=== PATIENT | male | born 1945 | race Caucasian/White ===

== ENCOUNTER 2018-09-02 19:14 | Emergency (ER) | payer MEDICARE, OTHER, SELFPAY ==
[2018-09-02 19:22] VITALS: BP 146/72; PULSE 59; RESP 16; TEMP 36.5; O2SAT 99; BMI 25.0
[2018-09-02 20:05] VITALS: BP 146/72; PULSE 59; RESP 16; TEMP 36.5; O2SAT 99; BMI 25.0
[2018-09-02 20:05] LABS: Add Manual Diff / Slide Review NO; Basophils Percent Auto 0.5 % (0-2); Eosinophils Percent Auto 0.6 % (2-4); Hematocrit 46.4 % (41-53); Hemoglobin 15.8 g/dL (13.5-17.5); Lymphocytes Percent Auto 14.9 % (25-40); Mean Corpuscular HGB Conc 33.9 % (30-36); Mean Corpuscular Hemoglobin 32.1 PG (26-34); Mean Corpuscular Volume 94.6 fL (80-100); Monocytes Percent Auto 4.3 % (3-14); Neutrophils Absolute Auto 6000 /uL (3000-5900); Neutrophils Percent Auto 79.7 % (50-75); Platelet Count 177 X10^3/uL (150-400); Red Cell Distribution Width 13.5 % (11.6-14.8); White Blood Cell Count 7.6 X10^3/uL (4.5-11.0)
--- NOTE | 2018-09-02 20:06 | ED.DIZZY ---
HPI - Dizziness General Chief Complaint: Dizziness Stated Complaint: Dizzy Time Seen by Provider: 09/02/18 19:53 Source: patient, family () and EMS Mode of arrival: EMS Limitations: no limitations History of Present Illness HPI Narrative: This is a 73-year-old male who comes to the emergency department with complaint of dizziness. When asked he states when he got out of bed this morning sickness he jumped up stood on the floor he felt like the room was spinning in front of him. When he lays down we still the symptoms go away. He tried several times today and had the same symptoms each time. His did assistance to the bathroom at 1 point because he felt so off balance. Patient states that he does not headache, he is not having any vision changes. No chest pain or shortness of breath. No nausea or vomiting, no other GI or urinary symptoms. He is not having any weakness. He does not feel like he is going to pass out but does feel a little lightheaded. Him and his state he has had similar symptoms before and was diagnosed with vertigo. He does have tubes in his ears bilaterally. He states the right 1 fell out recently and these were placed there for fluid behind his ears. Him and his state that both were not placed secondary or associated with his prior vertigo episode. They do not remember if his symptoms were the same as today as his vertigo symptoms were a long time ago. Related Data Home Medications Medication Instructions Recorded Confirmed ginkgo biloba 120 mg PO QDAY #0 02/27/18 loratadine 10 mg PO QDAY #90 02/27/18 valacyclovir 500 mg PO QDAY #90 02/27/18 Previous Rx's Medication Instructions Recorded rivastigmine [Exelon] 13.3 mg TD Q DAY #90 patch 01/22/18 meclizine 25 mg PO BID-TID PRN #14 tab 09/02/18 Allergies Allergy/AdvReac Type Severity Reaction Status Date / Time quinine Allergy Intermediate HIVES Verified 09/02/18 19:22 hydrocodone Allergy Mild REACTED Verified 09/02/18 19:22 PRETTY BAD TOO IT. Review of Systems Review of Systems All systems reviewed & are unremarkable except as noted in HPI and below Constitutional Denies fatigue, Denies fever(s), Denies headache(s) and Denies weakness Eyes Denies change in vision ENT Ears, Nose, Mouth, and Throat: Denies headache(s) Cardiovascular Denies chest pain, Denies diaphoresis, Denies syncope, Denies irregular heart rhythm, Denies lightheadedness, Denies palpitations, Denies dyspnea, Denies dyspnea on exertion and Denies orthopnea Respiratory Denies cough, Denies dyspnea, Denies dyspnea on exertion and Denies wheezing Gastrointestinal Gastrointestinal: Denies abdominal pain, Denies change in bowel habits, Denies diarrhea, Denies nausea and Denies vomiting Genitourinary Denies hematuria, Denies flank pain, Denies urinary incontinence and Denies urinary urgency Musculoskeletal Denies numbness Neurologic Denies confusion, Denies syncope, Denies headache(s), Denies focal weakness, Denies numbness, Denies sensory deficit and Denies weakness Psychiatric Denies confusion Endocrine Denies fatigue and Denies palpitations Allergic/Immunologic Denies wheezing PFSH Medical History Memory problem (Acute) Surgical History History of carpal tunnel repair Status post hernia repair Social History marital status: household members: spouse Smoking Status: Never smoker alcohol intake: never Exam Narrative Exam Narrative: GEN: well nourished, well appearing male, alert and oriented x 3, patient appears to be in no acute distress. I am able to sit the patient up in the bed without increasing symptoms. HEENT: Atraumatic, pupils are equal round reactive to light, extraocular movements are intact, nares are clear, right TM shows a blue 2 within the canal but not in the tympanic membrane, there is a hole present time headache membrane consistent with recent ear tube, left canal has cerumen and I am unable to visualize the TM. Throat is clear without any exudates, erythema, tonsillar enlargement or uvular deviation, no facial droop. No dysarthria or aphasia. HEART: Regular rate and rhythm without murmur, clicks, rubs. Pulses are equal in upper and lower extremities LUNGS:Lungs clear to auscultation, no wheezes, rales, crackles, chest moves symmetrically ABD:bowel sounds normal, soft, non-tender, no guarding, rebound, rigidity, no masses noted, no hepatosplenomegaly :No CVA tenderness MSCL: Non-tender, no muscle atrophy, muscles strength 5/5 upper and lower extremities, full range of motion, normal gait NEURO:CN 2-12 intact, sensation normal, reflexes 2/4 upper and lower extremities. finger nose finger test normal, heel barlow test normal. Initial Vital Signs Initial Vital Signs: Vital Signs Temperature 97.7 F 09/02/18 19:22 Pulse Rate 59 L 09/02/18 19:22 Respiratory Rate 16 09/02/18 19:22 Blood Pressure 146/72 H 09/02/18 19:22 Pulse Oximetry 99 09/02/18 19:22 Scores NIH Stroke Scale Level of Conciousness: Alert, keenly responsive Ask month/age: Answers both questions correctly. Open/close eyes, close hand: Performs both tasks correctly Best gaze horizontal: Normal Visual pham: No visual loss Facial palsy: Normal symetrical movement Left arm drift: No drift for full 10 sec Right arm drift: No drift for full 10 sec Left leg drift: No drift for full 10 sec Right leg drift: No drift for full 10 sec Limb ataxia: Absent Sensory on face/arms/legs: Normal, no sensory loss Best language: No aphasia, normal Dysarthria: Normal Extinction or inattention: No abnormality Total NIH Stroke scale score: 0 Course Orders Ordered: ED Orders 09/02/18 19:48 EKG-12 Lead Stat 09/02/18 20:05 Troponin I Stat 09/02/18 20:06 CT head/brain wo con Stat XR chest 1V Stat Discontinued Medications Meclizine HCl (Antivert) 25 mg PO NOW ONE Stop: 09/02/18 20:06 Last Admin: 09/02/18 20:09 Dose: 25 mg Meclizine HCl (Antivert) 50 mg PO NOW ONE Stop: 09/02/18 22:45 Last Admin: 09/02/18 22:47 Dose: 50 mg Reevaluation(s) Reevaluation #1: recheck after meclizine. patient feels better but when attempted to walk felt very symptomatic. Patient and feel safe returning home. No clear signs of CVA and patient has had similar symptoms in past. Time: 22:30 Vital Signs - 8 hr 09/02/18 20:54 Pulse Rate 71 Respiratory Rate 19 Blood Pressure [Left Arm] 138/76 Pulse Oximetry 99 MDM - Dizziness Lab Data Attestation: I reviewed the patient's lab results. Result diagrams: 09/02/18 19:20 09/02/18 19:20 Lab Results 09/02/18 09/02/18 09/02/18 Range/Units 19:20 19:20 20:05 WBC 7.6 (4.5-11.0) X10^3/uL RBC 4.90 (4.5-5.9) X10^6/uL Hgb 15.8 (13.5-17.5) g/dL Hct 46.4 (41-53) % MCV 94.6 (80-100) fL MCH 32.1 (26-34) PG MCHC 33.9 (30-36) % RDW 13.5 (11.6-14.8) % Plt Count 177 (150-400) X10^3/uL Neut % (Auto) 79.7 H (50-75) % Lymph % (Auto) 14.9 L (25-40) % [place] % (Auto) 4.3 (3-14) % Eos % (Auto) 0.6 L (2-4) % Baso % (Auto) 0.5 (0-2) % Neut # (Auto) 6000 H (9343-1279) /uL Sodium 140 Cancelled (137-145) mmol/L Potassium 4.1 Cancelled (3.4-5.1) mmol/L Chloride 102 Cancelled (98-107) mmol/L Carbon Dioxide 26 Cancelled (22-32) mmol/L BUN 14 Cancelled (9-20) mg/dL Creatinine 0.70 Cancelled (0.66-1.25) mg/dL Estimated GFR > 60.0 Cancelled (>60) mL/min BUN/Creatinine Ratio 20.0 Cancelled (6-22) Glucose 160 H Cancelled (80-110) mg/dL Calcium 9.1 Cancelled (8.4-10.2) mg/dL Total Bilirubin 0.9 Cancelled (0.2-1.3) mg/dL AST 34 Cancelled (17-59) IU/L ALT 28 Cancelled (21-72) IU/L Alkaline Phosphatase 53 Cancelled (38-126) U/L Troponin I < 0.012 (0.01-0.034) ng/mL Total Protein 6.9 Cancelled (6.3-8.2) g/dL Albumin 4.1 Cancelled (3.5-5.0) g/dL Globulin 2.8 Cancelled (1.7-4.1) g/dL Albumin/Globulin Ratio 1.5 Cancelled (1.0-2.8) Specimen Hemolysis Cancelled Urine Dip Bedside Urine Glucose Negative Bedside Urine Bilirubin - Negative Bedside Urine Ketone - Negative Urine Specific [place] 1.015 Bedside Urine Occult Blood - Negative Bedside Urine pH 7.5 Bedside Urine Protein - Negative Bedside Urine Urobilinogen - Negative Bedside Urine Nitrite - Negative Bedside Urine Leukocytes - Negative Esterase Imaging Data Chest x-ray: Radiologist's impression: [address] [address] XRay Report Signed Patient: Nitesh Hawley RMR#: [id number] : 3Acct:[id number] Age/Sex: 73 / MDate of Service: 09/02/18 Loc: ED Accession Number: [id number] Procedure: XR chest 1V Ordering Provider: Ying Contreras D.O. PROCEDURE: XR CHEST 1V INDICATIONS: dizziness/vertigo symptoms TECHNIQUE: One view of the chest was acquired. COMPARISON: [facility], , XR CHEST 1 VIEW, 03/04/2018, 14:50. FINDINGS: Surgical changes and devices: Dual-lead cardiac pacer is unchanged. Lungs and pleura: No pleural effusions or pneumothorax. Lungs are clear. Mediastinum: Mediastinal contours appear normal. Heart size is normal. Bones and chest wall: No suspicious bony lesions. Overlying soft tissues appear unremarkable. There is gaseous distention of the stomach. IMPRESSION: No acute cardiopulmonary findings. Dictated by: Melina Vasquez M.D. on 09/02/2018 at 20:29 Approved by: Melina Vasquez M.D. on 09/02/2018 at 20:30 CT scan - head: Radiologist's impression: [address] [address] [address] Scan Report Signed Patient: Nitesh Hawley RMR#: [id number] : 3At:[id number] Age/Sex: 73 / MDate of Service: 09/02/18 Loc: ED Accession Number: [id number] Procedure: CT head/brain wo con Ordering Provider: Ying Contreras D.O. PROCEDURE: CT HEAD/BRAIN WO CON INDICATIONS: dizziness/vertigo symptoms. TECHNIQUE: Noncontrast 4.5 mm thick angled axial sections acquired from the foramen magnum to the vertex, with coronal and sagittal reformats. For radiation dose reduction, the following was used: automated exposure control, adjustment of mA and/or kV according to patient size. COMPARISON: None. FINDINGS: Image quality: Excellent. CSF spaces: Basal cisterns are patent. No extra-axial fluid collections. The ventricles are symmetric in size and shape. Brain: No intracranial bleeds or masses. There is marked cerebral volume loss for age, with resultant ventricular and sulcal prominence. There are extensive periventricular and deep white matter chronic small vessel ischemic changes. There is intracranial internal carotid artery atherosclerosis. 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 Skull and face: Calvarium and visualized facial bones appear intact, without suspicious lesions. Sinuses: Visualized sinuses and mastoids are clear. IMPRESSION: 1. No acute intracranial findings. 2. Extensive findings likely associated with chronic microvascular ischemic changes. 3. Partially calcified pineal gland cyst. If further characterization is warranted, MRI could be used. Dictated by: Melina Vasquez M.D. on 09/02/2018 at 20:40 Approved by: Melina Vasquez M.D. on 09/02/2018 at 20:43 ECG Data Attestation: I personally reviewed and interpreted this ECG as follows: Interpretation: atrial paced rhythm. Rate of 60, P are of 204, QRS of 93 and QTC of [address] change. Prior from February 2018 appears similar. MDM Narrative Medical decision making narrative: Patient NIH scale is 0. Patient is feeling similar to prior episode. Patient and are comfortable returning. Discharge Plan Departure Patient Disposition: Home Clinical Impression: Vertigo Discharge Date/Time: 09/02/18 22:45 Interventions: ED Discharge Assessment Last Done: 09/02/18 22:45 Instructions: DI for Vertigo Activity Restrictions/Additional Instructions: Follow up with your physician in the next 24-48 hours for recheck. Take medication as prescribed, you may take 1-2 tablets of meclizine every 6-8 hours as needed for symptoms. Return to ER for worsening symptoms, new weakness, difficulty with speech, numbness, severe headaches, vision changes or other new or concerning symptoms. Prescriptions: New meclizine 25 mg tablet 25 mg PO BID-TID PRN (Reason: dizziness) Qty: 14 RF: 0 No Action rivastigmine [Exelon] 13.3 MG/24 HR patch 24 hour 13.3 mg TD Q DAY Qty: 90 RF: 3 valacyclovir 500 MG tablet 500 mg PO QDAY Qty: 90 RF: 0 loratadine 10 MG tablet 10 mg PO QDAY Qty: 90 RF: 0 ginkgo biloba 120 MG tablet 120 mg PO QDAY Qty: 0 RF: 0
[2018-09-02 20:07] LABS: Alanine Aminotransferase 28 IU/L (21-72); Albumin 4.1 g/dL (3.5-5.0); Albumin Globulin Ratio 1.5 (1.0-2.8); Alkaline Phosphatase 53 U/L (38-126); Aspartate Aminotransferase 34 IU/L (17-59); Bilirubin Total 0.9 mg/dL (0.2-1.3); Blood Urea Nitrogen 14 mg/dL (9-20); Calcium 9.1 mg/dL (8.4-10.2); Carbon Dioxide 26 mmol/L (22-32); Chloride 102 mmol/L (98-107); Estimated Glomerular Filt Rate > 60.0 mL/min (>60); Globulin 2.8 g/dL (1.7-4.1); Glucose 160 mg/dL (80-110); HEMOLYSIS 18 (0-50); Potassium 4.1 mmol/L (3.4-5.1); Sodium 140 mmol/L (137-145); Total Protein 6.9 g/dL (6.3-8.2)
[2018-09-02] MEDS: MECLIZINE HCL 12.5 MG TABLET 25 MG PO (20:09)
--- NOTE | 2018-09-02 20:12 | ED_ITS ---
HPI - Dizziness General Chief Complaint: Dizziness Stated Complaint: Dizzy Time Seen by Provider: 09/02/18 19:53 Source: patient, family () and EMS Mode of arrival: EMS Limitations: no limitations History of Present Illness HPI Narrative: This is a 73-year-old male who comes to the emergency department with complaint of dizziness. When asked he states when he got out of bed this morning sickness he jumped up stood on the floor he felt like the room was spinning in front of him. When he lays down we still the symptoms go away. He tried several times today and had the same symptoms each time. His did assistance to the bathroom at 1 point because he felt so off balance. Patient states that he does not headache, he is not having any vision changes. No chest pain or shortness of breath. No nausea or vomiting, no other GI or urinary symptoms. He is not having any weakness. He does not feel like he is going to pass out but does feel a little lightheaded. Him and his state he has had similar symptoms before and was diagnosed with vertigo. He does have tubes in his ears bilaterally. He states the right 1 fell out recently and these were placed there for fluid behind his ears. Him and his state that both were not placed secondary or associated with his prior vertigo episode. They do not remember if his symptoms were the same as today as his vertigo symptoms were a long time ago. Related Data Home Medications Medication Instructions Recorded Confirmed ginkgo biloba 120 mg PO QDAY #0 02/27/18 loratadine 10 mg PO QDAY #90 02/27/18 valacyclovir 500 mg PO QDAY #90 02/27/18 Previous Rx's Medication Instructions Recorded rivastigmine [Exelon] 13.3 mg TD Q DAY #90 patch 01/22/18 meclizine 25 mg PO BID-TID PRN #14 tab 09/02/18 Allergies Allergy/AdvReac Type Severity Reaction Status Date / Time quinine Allergy Intermediate HIVES Verified 09/02/18 19:22 hydrocodone Allergy Mild REACTED Verified 09/02/18 19:22 PRETTY BAD TOO IT. Review of Systems Review of Systems All systems reviewed & are unremarkable except as noted in HPI and below Constitutional Denies fatigue, Denies fever(s), Denies headache(s) and Denies weakness Eyes Denies change in vision ENT Ears, Nose, Mouth, and Throat: Denies headache(s) Cardiovascular Denies chest pain, Denies diaphoresis, Denies syncope, Denies irregular heart rhythm, Denies lightheadedness, Denies palpitations, Denies dyspnea, Denies dyspnea on exertion and Denies orthopnea Respiratory Denies cough, Denies dyspnea, Denies dyspnea on exertion and Denies wheezing Gastrointestinal Gastrointestinal: Denies abdominal pain, Denies change in bowel habits, Denies diarrhea, Denies nausea and Denies vomiting Genitourinary Denies hematuria, Denies flank pain, Denies urinary incontinence and Denies urinary urgency Musculoskeletal Denies numbness Neurologic Denies confusion, Denies syncope, Denies headache(s), Denies focal weakness, Denies numbness, Denies sensory deficit and Denies weakness Psychiatric Denies confusion Endocrine Denies fatigue and Denies palpitations Allergic/Immunologic Denies wheezing PFSH Medical History Memory problem (Acute) Surgical History History of carpal tunnel repair Status post hernia repair Social History marital status: household members: spouse Smoking Status: Never smoker alcohol intake: never Exam Narrative Exam Narrative: GEN: well nourished, well appearing male, alert and oriented x 3 , patient appears to be in no acute distress. I am able to sit the patient up in the bed without increasing symptoms. HEENT: Atraumatic, pupils are equal round reactive to light, extraocular movements are intact, nares are clear, right TM shows a blue 2 within the canal but not in the tympanic membrane, there is a hole present time headache membrane consistent with recent ear tube, left canal has cerumen and I am unable to visualize the TM. Throat is clear without any exudates, erythema, tonsillar enlargement or uvular deviation, no facial droop. No dysarthria or aphasia. HEART: Regular rate and rhythm without murmur, clicks, rubs. Pulses are equal in upper and lower extremities LUNGS:Lungs clear to auscultation, no wheezes, rales, crackles, chest moves symmetrically ABD:bowel sounds normal, soft, non-tender, no guarding, rebound, rigidity, no masses noted, no hepatosplenomegaly :No CVA tenderness MSCL: Non-tender, no muscle atrophy, muscles strength 5/5 upper and lower extremities, full range of motion, normal gait NEURO:CN 2-12 intact, sensation normal, reflexes 2/4 upper and lower extremities. finger nose finger test normal, heel barlow test normal. Initial Vital Signs Initial Vital Signs: Vital Signs Temperature 97.7 F 09/02/18 19:22 Pulse Rate 59 L 09/02/18 19:22 Respiratory Rate 16 09/02/18 19:22 Blood Pressure 146/72 H 09/02/18 19:22 Pulse Oximetry 99 09/02/18 19:22 Scores NIH Stroke Scale Level of Conciousness: Alert, keenly responsive Ask month/age: Answers both questions correctly. Open/close eyes, close hand: Performs both tasks correctly Best gaze horizontal: Normal Visual pham: No visual loss Facial palsy: Normal symetrical movement Left arm drift: No drift for full 10 sec Right arm drift: No drift for full 10 sec Left leg drift: No drift for full 10 sec Right leg drift: No drift for full 10 sec Limb ataxia: Absent Sensory on face/arms/legs: Normal, no sensory loss Best language: No aphasia, normal Dysarthria: Normal Extinction or inattention: No abnormality Total NIH Stroke scale score: 0 Course Orders Ordered: ED Orders 09/02/18 19:48 EKG-12 Lead Stat 09/02/18 20:05 Troponin I Stat 09/02/18 20:06 CT head/brain wo con Stat XR chest 1V Stat Discontinued Medications Meclizine HCl (Antivert) 25 mg PO NOW ONE Stop: 09/02/18 20:06 Last Admin: 09/02/18 20:09 Dose: 25 mg Meclizine HCl (Antivert) 50 mg PO NOW ONE Stop: 09/02/18 22:45 Last Admin: 09/02/18 22:47 Dose: 50 mg Reevaluation(s) Reevaluation #1: recheck after meclizine. patient feels better but when attempted to walk felt very symptomatic. Patient and feel safe returning home. No clear signs of CVA and patient has had similar symptoms in past. Time: 22:30 Vital Signs - 8 hr 09/02/18 20:54 Pulse Rate 71 Respiratory Rate 19 Blood Pressure [Left Arm] 138/76 Pulse Oximetry 99 MDM - Dizziness Lab Data Attestation: I reviewed the patient's lab results. Result diagrams: 09/02/18 19:20 09/02/18 19:20 Lab Results 09/02/18 09/02/18 09/02/18 Range/Units 19:20 19:20 20:05 WBC 7.6 (4.5-11.0) X10^3/uL RBC 4.90 (4.5-5.9) X10^6/uL Hgb 15.8 (13.5-17.5) g/dL Hct 46.4 (41-53) % MCV 94.6 (80-100) fL MCH 32.1 (26-34) PG MCHC 33.9 (30-36) % RDW 13.5 (11.6-14.8) % Plt Count 177 (150-400) X10^3/uL Neut % (Auto) 79.7 H (50-75) % Lymph % (Auto) 14.9 L (25-40) % [place] % (Auto) 4.3 (3-14) % Eos % (Auto) 0.6 L (2-4) % Baso % (Auto) 0.5 (0-2) % Neut # (Auto) 6000 H (9678-0875) /uL Sodium 140 Cancelled (137-145) mmol/L Potassium 4.1 Cancelled (3.4-5.1) mmol/L Chloride 102 Cancelled (98-107) mmol/L Carbon Dioxide 26 Cancelled (22-32) mmol/L BUN 14 Cancelled (9-20) mg/dL Creatinine 0.70 Cancelled (0.66-1.25) mg/dL Estimated GFR > 60.0 Cancelled (>60) mL/min BUN/Creatinine Ratio 20.0 Cancelled (6-22) Glucose 160 H Cancelled (80-110) mg/dL Calcium 9.1 Cancelled (8.4-10.2) mg/dL Total Bilirubin 0.9 Cancelled (0.2-1.3) mg/dL AST 34 Cancelled (17-59) IU/L ALT 28 Cancelled (21-72) IU/L Alkaline Phosphatase 53 Cancelled (38-126) U/L Troponin I < 0.012 (0.01-0.034) ng/mL Total Protein 6.9 Cancelled (6.3-8.2) g/dL Albumin 4.1 Cancelled (3.5-5.0) g/dL Globulin 2.8 Cancelled (1.7-4.1) g/dL Albumin/Globulin Ratio 1.5 Cancelled (1.0-2.8) Specimen Hemolysis Cancelled Urine Dip Bedside Urine Glucose Negative Bedside Urine Bilirubin - Negative Bedside Urine Ketone - Negative Urine Specific [place] 1.015 Bedside Urine Occult Blood - Negative Bedside Urine pH 7.5 Bedside Urine Protein - Negative Bedside Urine Urobilinogen - Negative Bedside Urine Nitrite - Negative Bedside Urine Leukocytes - Negative Esterase Imaging Data Chest x-ray: Radiologist's impression: [address] [address] XRay Report Signed Patient: Nitesh Hawley RMR#: [id number] : 3Acct:[id number] Age/Sex: 73 / MDate of Service: 09/02/18 Loc: ED Accession Number: [id number] Procedure: XR chest 1V Ordering Provider: Ying Contreras D.O. PROCEDURE: XR CHEST 1V INDICATIONS: dizziness/vertigo symptoms TECHNIQUE: One view of the chest was acquired. COMPARISON: [facility], , XR CHEST 1 VIEW, 03/04/2018, 14:50. FINDINGS: Surgical changes and devices: Dual-lead cardiac pacer is unchanged. Lungs and pleura: No pleural effusions or pneumothorax. Lungs are clear. Mediastinum: Mediastinal contours appear normal. Heart size is normal. Bones and chest wall: No suspicious bony lesions. Overlying soft tissues appear unremarkable. There is gaseous distention of the stomach. IMPRESSION: No acute cardiopulmonary findings. Dictated by: Melina Vasquez M.D. on 09/02/2018 at 20:29 Approved by: Melina Vasquez M.D. on 09/02/2018 at 20:30 CT scan - head: Radiologist's impression: [address] [address] [address] Scan Report Signed Patient: Nitesh Hawley RMR#: [id number] : 3At:[id number] Age/Sex: 73 / MDate of Service: 09/02/18 Loc: ED Accession Number: [id number] Procedure: CT head/brain wo con Ordering Provider: Ying Contreras D.O. PROCEDURE: CT HEAD/BRAIN WO CON INDICATIONS: dizziness/vertigo symptoms. TECHNIQUE: Noncontrast 4.5 mm thick angled axial sections acquired from the foramen magnum to the vertex, with coronal and sagittal reformats. For radiation dose reduction, the following was used: automated exposure control, adjustment of mA and/or kV according to patient size. COMPARISON: None. FINDINGS: Image quality: Excellent. CSF spaces: Basal cisterns are patent. No extra-axial fluid collections. The ventricles are symmetric in size and shape. Brain: No intracranial bleeds or masses. There is marked cerebral volume loss for age, with resultant ventricular and sulcal prominence. There are extensive periventricular and deep white matter chronic small vessel ischemic changes. There is intracranial internal carotid artery atherosclerosis. 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 Skull and face: Calvarium and visualized facial bones appear intact, without suspicious lesions. Sinuses: Visualized sinuses and mastoids are clear. IMPRESSION: 1. No acute intracranial findings. 2. Extensive findings likely associated with chronic microvascular ischemic changes. 3. Partially calcified pineal gland cyst. If further characterization is warranted, MRI could be used. Dictated by: Melina Vasquez M.D. on 09/02/2018 at 20:40 Approved by: Melina Vasquez M.D. on 09/02/2018 at 20:43 ECG Data Attestation: I personally reviewed and interpreted this ECG as follows: Interpretation: atrial paced rhythm. Rate of 60, P are of 204, QRS of 93 and QTC of [address] change. Prior from February 2018 appears similar. MDM Narrative Medical decision making narrative: Patient NIH scale is 0. Patient is feeling similar to prior episode. Patient and are comfortable returning. Discharge Plan Departure Patient Disposition: Home Clinical Impression: Vertigo Discharge Date/Time: 09/02/18 22:45 Interventions: ED Discharge Assessment Last Done: 09/02/18 22:45 Instructions: DI for Vertigo Activity Restrictions/Additional Instructions: Follow up with your physician in the next 24-48 hours for recheck. Take medication as prescribed, you may take 1-2 tablets of meclizine every 6-8 hours as needed for symptoms. Return to ER for worsening symptoms, new weakness, difficulty with speech, numbness, severe headaches, vision changes or other new or concerning symptoms. Prescriptions: New meclizine 25 mg tablet 25 mg PO BID-TID PRN (Reason: dizziness) Qty: 14 RF: 0 No Action rivastigmine [Exelon] 13.3 MG/24 HR patch 24 hour 13.3 mg TD Q DAY Qty: 90 RF: 3 valacyclovir 500 MG tablet 500 mg PO QDAY Qty: 90 RF: 0 loratadine 10 MG tablet 10 mg PO QDAY Qty: 90 RF: 0 ginkgo biloba 120 MG tablet 120 mg PO QDAY Qty: 0 RF: 0
[2018-09-02 20:31] LABS: Troponin I < 0.012 ng/mL (0.01-0.034)
[2018-09-02 20:54] VITALS: BP 138/76; PULSE 71; RESP 19; O2SAT 99
[2018-09-02] MEDS: MECLIZINE HCL 12.5 MG TABLET 50 MG PO (22:47)
== END 2018-09-02 22:45 | disposition home or self-care (01) ==
PROVIDERS: Emergency Provider Emergency Medicine; Family Provider Specialist; PCP Family Medicine
DX: R42 Dizziness and giddiness (principal)
CPT/HCPCS: 70450; 71045; 80053; 81003; 84484; 85025; 93005; 93010; 99282; 99285

== ENCOUNTER 2020-02-14 14:30 | Outpatient (RCR) | payer MEDICARE, OTHER, SELFPAY ==
--- NOTE | 2020-02-09 18:02 | ST.OPIE ---
Visit Care Team Role Provider Type Jared Wu MD Primary Care Provider Physician Specialty: Internal Medicine Address: [address] [place] [address], [address], [place], [address] Email: [email or web address] Regan Mckeon MD Attending Provider Non-Staff Referring Provider Specialty: Psychiatry Address: [address] [place] [address], [id number] Email: Speech-Language Pathology Initial Evaluation INTERVENTIONAL TECHNOLOGIST Cognitive/Memory Evaluation Start: 02/07/20 14:25 Freq: Status: Active Protocol: Document 02/07/20 14:25 LNK (Rec: 02/07/20 15:51 LNK [id number]) Evaluation of Cognition Session Time Visit Start Time 14:30 Visit Stop Time 15:25 Total Visit Minutes 55 Visit Information Visit Number 1 Plan of Care Dates 02/07/20-05/09/20 Next Note Type Next Note Type Treatment Note Referral Referring Physician Reason for Referral Dementia Evaluation Assessment Type Cognitive Past Medical History Patient History Mr. Hawley is a 74-year-old man who was diagnosed with Alzheimer's in April. He is currently on memantine is seems to be tolerating it well . His opinion is that symptoms are slowly progressing. His thinks that things are moving a little bit faster than she expects. His has previously been referred to [facility] but has not called them. Hearing Hearing Level Hearing Aids Auditory History Pt is FALSE PASS. Has bilateral hearing aids, but still has difficulty hearing. Vision Vision Status Impaired Comments wears glasses Occupational Status Occupation Status Retired Previous Therapy Previous Speech-Language Therapy No Oral Motor Examination Oral Motor Exam Completed No: Informal observation indicated OM skills WFL Subjective Subjective Pt is a pleasant man, here with his . Very FALSE PASS - Informal Assessment Receptive Language Normal No: Very FALSE PASS. Pt says he doesn't understand people Cognition Normal No Formal Assessment Standardized Test Cognitive Linguistic Quick Test-Plus (CQLT+) Administration Complete Results The results of the CQLT+ indicate that Nitesh presents with moderate to severe dementia, complicated by poor hearing and possibly inadequate hearing aids. For the assessment, this INTERVENTIONAL TECHNOLOGIST spoke loudly, often checking with Nitesh as to if he could hear and understand me. He always indicated he could. The CLQT is comprised of 11 subtests whose scores are consolidated into 5 domains of cognition: Attention, Memory, Executive Function, Language and Visuospatial Skills. Nitesh scored in a moderate cognitive impaired range for Memory, Language, Visuospatial Skills and Clock Drawing. He scored in the severe cognitively impaired range for Attention and Executive Functions. Nitesh had significant difficulty with following directions, staying on task, and not completing a task. He was unable to retell a story or answer questions about the story. His generative naming ( listing animals/words that start with 'm') was significantly limited with perseveration. Nitesh was unable to complete simple and more complex mazes and create a 4 line design given 4 dots within a box. At the end of the session, he asked me Well, after all of that, can you get me better hearing aids? His noted that she wanted me to help Nitesh understand what people are saying on the TV. - Cognition Orientation Skill Level Moderately Impaired Attention Skill Level Severely Impaired Problem Solving/Reasoning/Judgment Skill Level Severely Impaired Divergent Naming Skill Level Severely Impaired Sequencing Skill Level Severely Impaired Clock Drawing Skill Level Moderately Impaired - Memory Short Term Memory Skill Level Severely Impaired Immediate Recall Skill Level Severely Impaired Word Recall Skill Level Severely Impaired Story Recall Skill Level Severely Impaired Long-Term Memory Skill Level Mildly Impaired - Findings Cognitive/Memory Impressions Due to the severity of dementia Nitesh presented with cognitive therapy is not recommended beyond 1-2 visits for environmental strategies and communication strategies. Written information re; the above will be provided. Recommendations Recommendations ST follow up 1or 2x Treatment Goals Short Term Goals 1) Recommend that Nitesh be referred for an audiological appointment to assess hearing acuity and candidacy for new hearing aids. 2) Follow up speech therapy to provide strategies for communicating with a person with hearing loss and environmental adjustments that can be used to help decrease confusion. Referrals Suggested ENT,Primary Care Physician
--- NOTE | 2020-02-09 18:03 | ST.OPPOC ---
Physical, Occupational & Speech Therapy At [facility] Visit Care Team Role Provider Type Jared Wu MD Primary Care Provider Physician Address: [address] [place] [address], [address], [address] Regan Mckeon MD Attending Provider Non-Staff Referring Provider Address: [address] [place] [address], [id number] Speech Pathology Plan of Care Plan of Care Dates 02/07/20-05/09/20 Short Term Goals 1) Recommend that Nitesh be referred for an audiological appointment to assess hearing acuity and candidacy for new hearing aids. 2) Follow up speech therapy to provide strategies for communicating with a person with hearing loss and environmental adjustments that can be used to help decrease confusion. Electronically Signed by: BRISA Bowen 02/09/20 [id number] Please Sign and Return: I have reviewed this Plan of Care and certify that the skilled therapy services above are required to meet the patient?s needs. Physician Signature Date Printed Name and Credentials Clinical Instructor Signature Printed Name and Credentials
--- NOTE | 2020-02-14 15:48 | ST.OPTN ---
Visit Care Team Role Provider Type Jared Wu MD Primary Care Provider Physician Address: [address] [place] [address], [address], [place], [address] Regan Mckeon MD Attending Provider Non-Staff Referring Provider Address: [address] [place] [address], [id number] FOUNDRY ENGINEER Treatment Note FOUNDRY ENGINEER Treatment Note Start: 02/07/20 14:25 Freq: Status: Active Protocol: Document 02/14/20 15:24 LNK (Rec: 02/14/20 15:39 LNK [id number]) Speech Pathology Treatment Note Session Time Visit Start Time 14:30 Visit Stop Time 15:15 Total Visit Minutes 45 Visit Information Visit Number 2 Plan of Care Dates 02/07/20-05/09/20 Setting Treatment Setting Outpatient Care Visit Type Note Type Treatment Note Next Note Type Next Note Type Discharge Summary General Information General Information Mr. Hawley is a 74-year-old man who was diagnosed with Alzheimer's in April. He is currently on memantine is seems to be tolerating it well . His opinion is that symptoms are slowly progressing. His thinks that things are moving a little bit faster than she expects. Mr. Hawley was initially wanting to be able to understand what people are saying. At his initial assessment session, the results of the CQLT+ indicate that Mr. Hawley presents with moderate to severe dementia, complicated by poor hearing and possibly inadequate hearing aids. Subjective Identification Type Name,Picture Others Present Family Observations/Patient Presentation Pleasantly confused Chief Complaint(s) Cognitive,Other Additional Areas of Concern Hearing Rehab Expectation/Goals: Patient Goals Understand what people are saying Rehab Expectation/Goals: Parent/Guardian Understand what people are /Construction Field Engineer Goals saying Patient Knowledge/Awareness of FOUNDRY ENGINEER Role Fair in Treatment Parent/Caretake Knowledge/Awareness of Good FOUNDRY ENGINEER Role in Treatment Objective Treatment Activities The results of the CQLT were reviewed with the pt and his . The results indicated moderate-severe dementia. At this point, strategies for home/ environmental organization to reduce confusion and increasing Nitesh's awareness of daily activities were described. A list of environmental changes to aid the pt with dementia was provided. Discussed the possibility of looking into getting new hearing aids. In November, Mr. Wogan's hearing was assessed by Paul Vance MD, ENT. At that time Dr. Vance had mentioned cochlear implant possibility with and Mrs Hawley. This FOUNDRY ENGINEER is uncertain as to if Mr Hawley would be a good candidate for cochlear implant given his level of dementia and/or because Mr. Hawley has a pacemaker. Strategies for communicating with someone who is hard of hearing was provided to and Mrs Hawley. The pt is not a candidate for continued therapy Assessment Patient Response to Treatment Good Rehab Potential Poor Impairments Identified Cognitive-Linguistic Skills, Dementia Additional Impairments Identified [facility] Plan Amount of Therapy Recommended No Further Therapy Frequency of Treatment No Further Therapy Provided Patient/Caregiver Instruction Questions/Concerns Therapy Recommendations Discharge from Speech Therapy
--- NOTE | 2020-02-14 15:51 | ST.OPDS ---
Visit Care Team Role Provider Type Jared Wu MD Primary Care Provider Physician Address: [address] [place] [address], [address], [place], [address] Regan Mckeon MD Attending Provider Non-Staff Referring Provider Address: [address] [place] [address], [address] PAN DUMPER Treatment Note PAN DUMPER Treatment Note Start: 02/07/20 14:25 Freq: Status: Active Protocol: Document 02/14/20 15:49 LNK (Rec: 02/14/20 15:50 LNK [id number]) Speech Pathology Treatment Note Visit Type Note Type Discharge Summary General Information General Information Mr. Hawley is a 74-year-old man who was diagnosed with Alzheimer's in April. He is currently on memantine is seems to be tolerating it well . His opinion is that symptoms are slowly progressing. His thinks that things are moving a little bit faster than she expects. Mr. Hawley was initially wanting to be able to understand what people are saying. At his initial assessment session, the results of the CQLT+ indicate that Mr. Hawley presents with moderate to severe dementia, complicated by poor hearing and possibly inadequate hearing aids. Subjective Rehab Expectation/Goals: Patient Goals Understand what people are saying Rehab Expectation/Goals: Parent/Guardian Understand what people are /Orchard Pruner Goals saying Assessment Rehab Potential Poor Impairments Identified Cognitive-Linguistic Skills, Dementia Additional Impairments Identified [facility] Progress Towards Goals Appropriate for Discharge Plan Amount of Therapy Recommended No Further Therapy Frequency of Treatment No Further Therapy Therapy Recommendations Discharge from Speech Therapy
== END 2020-02-16 08:01 ==
LOC: SP 14:30
PROVIDERS: PCP Student in an Organized Health Care Education/Training Program; Referring Provider Psychiatry & Neurology Neurology; Visit Provider Psychiatry & Neurology Neurology
DX: G30.9 Alzheimer's disease, unspecified (principal); F02.80 Dementia in other diseases classified elsewhere, unspecified severity, without behavioral disturbance, psychotic disturbance, mood disturbance, and anxiety; F01.50 Vascular dementia, unspecified severity, without behavioral disturbance, psychotic disturbance, mood disturbance, and anxiety
CPT/HCPCS: 96125; 97129; 97130

== ENCOUNTER → 2021-01-30 16:39 | Outpatient (CLI) | payer MEDICARE, OTHER, SELFPAY ==
[2021-01-30 19:36] LABS: BUN Creatinine Ratio 15.5 (6-22); Blood Urea Nitrogen 16 mg/dL (9-20); Calcium 9.1 mg/dL (8.4-10.2); Carbon Dioxide 30 mmol/L (22-32); Chloride 106 mmol/L (98-107); Estimated Glomerular Filt Rate > 60.0 mL/min (>60); Glucose 80 mg/dL (80-110); HEMOLYSIS < 15 (0-50); Potassium 4.7 mmol/L (3.4-5.1); Sodium 138 mmol/L (137-145)
== END ==
PROVIDERS: PCP Student in an Organized Health Care Education/Training Program; Referring Provider Student in an Organized Health Care Education/Training Program; Visit Provider Student in an Organized Health Care Education/Training Program
DX: I10 Essential (primary) hypertension (principal)
CPT/HCPCS: 36415; 80048

== ENCOUNTER 2021-08-15 13:15 | Emergency (ER) | payer MEDICARE, OTHER, SELFPAY ==
[2021-08-15 13:22] VITALS: BP 142/75; PULSE 62; RESP 14; TEMP 36.4; O2SAT 98; BMI 28.0
--- NOTE | 2021-08-15 13:29 | DI.RAD.S_ITS ---
PROCEDURE: XR CHEST 1V INDICATIONS: Possible stroke TECHNIQUE: One view of the chest was acquired. COMPARISON: None. FINDINGS: Surgical changes and devices: Left chest wall cardiac pacing device. Lungs and pleura: Lungs are clear. No pleural effusions or pneumothorax. Mediastinum: Mediastinal contours appear normal. Heart size is normal. Bones and chest wall: No suspicious bony lesions. Overlying soft tissues appear unremarkable. IMPRESSION: No acute cardiopulmonary process demonstrated radiographically. Dictated by: Giovanny Khalil M.D. on 08/15/2021 at 13:57 Approved by: Giovanny Khalil M.D. on 08/15/2021 at 13:58
--- NOTE | 2021-08-15 13:29 | DI.CT.S_ITS ---
PROCEDURE: CT STROKE INDICATIONS: trouble speaking 2 days ago TECHNIQUE: Noncontrast 4.5 mm thick angled axial sections acquired from the foramen magnum to the vertex, with coronal reformats. For radiation dose reduction, the following was used: automated exposure control, adjustment of mA and/or kV according to patient size. COMPARISON: 09/02/2018 FINDINGS: Image quality: Excellent. CSF spaces: Basal cisterns are patent. No extra-axial fluid collections. Ventricles are normal in size and shape. Brain: Advanced global cerebral volume loss and chronic microvascular ischemic changes. No midline shift. No intracranial masses or hemorrhage. Hurt-white matter interface is normal. Skull and face: Calvarium and visualized facial bones are intact, without suspicious lesions. Sinuses: Visualized sinuses and mastoids are clear. IMPRESSION: No acute intracranial abnormality. Global cerebral volume loss and chronic microvascular ischemic changes. Findings were discussed with Dr. Luther at time of dictation. This study fulfills neurological imaging criteria for inclusion or exclusion of acute stroke therapies based on available published neurological imaging guidelines. Dictated by: Giovanny Khalil M.D. on 08/15/2021 at 13:54 Approved by: Giovanny Khalil M.D. on 08/15/2021 at 13:56
[2021-08-15 13:37] VITALS: PULSE 60; O2SAT 99
--- NOTE | 2021-08-15 13:41 | PC.NURSE ---
reports episode of word searching 2-3 days ago, also states left hand has been stiff on and off x days. Currently pt is a/o x 2 (baseline for pt as he has dementia) clear speech. Moving all extremities equally well. denies numbness/tingling. No symptoms currently. Pt has pacemaker and is on thinners.
[2021-08-15 13:43] LABS: Add Manual Diff / Slide Review NO; Basophils Absolute Auto 100 /uL (0-100); Basophils Percent Auto 1.2 % (0-2); Eosinophils Absolute Auto 100 /uL (0-450); Eosinophils Percent Auto 1.9 % (2-4); Hematocrit 45.9 % (41-53); Hemoglobin 14.9 g/dL (13.5-17.5); Lymphocytes Absolute Auto 2400 /uL (1100-4500); Lymphocytes Percent Auto 33.4 % (25-40); Mean Corpuscular HGB Conc 32.4 % (30-36); Mean Corpuscular Hemoglobin 30.6 PG (26-34); Mean Corpuscular Volume 94.6 fL (80-100); Monocytes Absolute Auto 600 /uL (0-900); Neutrophils Absolute Auto 3800 /uL (1500-7000); Neutrophils Percent Auto 54.5 % (50-75); Platelet Count 223 X10^3/uL (150-400); Red Blood Cell Count 4.86 X10^6/uL (4.5-5.9); Red Cell Distribution Width 13.8 % (11.6-14.8); White Blood Cell Count 7.1 X10^3/uL (4.5-11.0)
[2021-08-15 13:50] VITALS: BP 146/67; PULSE 60; O2SAT 100
[2021-08-15 13:51] LABS: INR 1.4 (0.9-1.3); Prothrombin Time 15.6 SECONDS (10.1-12.7)
[2021-08-15 13:54] LABS: PTT Partial Thromboplastin Tim 40 SECONDS (26.4-36.2)
[2021-08-15 14:00] VITALS: BP 136/70; PULSE 60; O2SAT 98
[2021-08-15 14:00] LABS: Alanine Aminotransferase 31 IU/L (<50); Albumin 4.5 g/dL (3.5-5.0); Albumin Globulin Ratio 1.4 (1.0-2.8); Alkaline Phosphatase 71 U/L (38-126); Aspartate Aminotransferase 37 IU/L (17-59); BUN Creatinine Ratio 20.7 (6-22); Blood Urea Nitrogen 18 mg/dL (9-20); Calcium 9.4 mg/dL (8.4-10.2); Carbon Dioxide 27 mmol/L (22-32); Chloride 108 mmol/L (98-107); Creatine Kinase 81 U/L (55-170); Estimated Glomerular Filt Rate > 60.0 mL/min (>60); Globulin 3.3 g/dL (1.7-4.1); Glucose 94 mg/dL (80-110); HEMOLYSIS 19 (0-50); Magnesium 2.3 mg/dL (1.6-2.3); Potassium 4.5 mmol/L (3.4-5.1); Sodium 141 mmol/L (137-145); Total Protein 7.8 g/dL (6.3-8.2)
[2021-08-15 14:11] LABS: Troponin I < 0.012 ng/mL (0.01-0.034)
--- NOTE | 2021-08-15 14:27 | ED_ITS ---
HPI - Neuro Symptoms/Deficit General Chief Complaint: Neuro Symptoms/Deficit Stated Complaint: left hand stiffness, trouble talking few days ago Time Seen by Provider: 08/15/21 13:35 Source: patient and family Mode of arrival: Ambulatory History of Present Illness HPI Narrative: Patient is a 75-year-old male. Has a history of Alzheimer's disease. Is here with his . Here for evaluation of episodes that have occurred over the past couple days. Patient's states that yesterday the patient had an episode where his left hand seemed to cramp. states that it lasted seconds. Patient does not remember the event. When she asked him if this has happened in the past he told her that it happens occasionally. Patient's also stated that a couple days ago he had an episode where he was telling her story. She stated that he seemed to have a hard time thinking of words to say in order to finish a sentence. She stated that he was not slurring his words. Was only 1 sentence that he was having problems communicating. Patient also does not remember that event. Currently the patient has no symptoms. He is at his baseline mental status per his . On Anticoagulants: Yes (xarelto) Related Data Home Medications Medication Instructions Recorded Confirmed melatonin 3 mg capsule 3 mg PO BEDTIME PRN 10/27/19 01/30/21 memantine 10 mg tablet (Namenda) 10 mg PO BID 10/27/19 01/30/21 metoprolol tartrate 25 mg tablet 12.5 mg PO BID 06/26/20 01/30/21 Previous Rx's Medication Instructions Recorded valacyclovir 500 mg tablet 500 mg PO DAILY #90 tab 02/19/21 Allergies Allergy/AdvReac Type Severity Reaction Status Date / Time quinine Allergy Intermediate HIVES Verified 08/15/21 13:32 hydrocodone Allergy Mild REACTED Verified 08/15/21 13:32 PRETTY BAD TOO IT. donepezil Allergy Unknown unknown Verified 08/15/21 13:32 galantamine Allergy Unknown unknown Verified 08/15/21 13:32 rivastigmine Allergy Unknown Redness of Verified 08/15/21 13:32 Skin Review of Systems Review of Systems Narrative: Provided by and patient Constitutional Constitutional: Denies headache(s) Eyes Eyes: Denies change in vision ENT Ears, Nose, Mouth, and Throat: Denies headache(s) Cardiovascular Cardiovascular: Denies chest pain and Denies dyspnea Respiratory Respiratory: Denies dyspnea Gastrointestinal Gastrointestinal: Denies abdominal pain Musculoskeletal Musculoskeletal: Reports as per HPI Integumentary/Breasts Skin/Breast: Reports system reviewed and no additional complaints, except as documented Neurologic Neurologic: Reports as per HPI and Denies headache(s) Psychiatric Psychiatric: Reports system reviewed and no additional complaints, except as documented Hematologic/Lymphatic On Anticoagulants: Yes (xarelto) Allergic/Immunologic Allergic/Immunologic: Reports system reviewed and no additional complaints, except as documented Patient History Medical History Chicken pox Chronic back pain Dementia Fractures Hearing loss Measles Memory problem Vision disorder Surgical History (Updated 08/30/19 @ 14:30 by Jelena Tay) Anesthesia History of carpal tunnel repair History of eye surgery (~04/26/14) History of hemorrhoidectomy History of rotator cuff surgery History of thumb surgery Pacemaker (~03/04/18) Status post hernia repair (~08/01/08) Status post LASIK surgery of both eyes Family History (Updated 08/30/19 @ 14:27 by Jelena Tay) Father History of heart disease Mother Diabetes mellitus Brother History of heart disease Social History marital status: household members: spouse Smoking Status: Former smoker alcohol intake: never Smoking Status: Former smoker Exam Initial Vital Signs Initial Vital Signs: Vital Signs Temperature 97.5 F L 08/15/21 13:22 Pulse Rate 62 08/15/21 13:22 Respiratory Rate 14 08/15/21 13:22 Blood Pressure 142/75 H 08/15/21 13:22 Pulse Oximetry 98 08/15/21 13:22 Const General: cooperative and healthy appearing HENNH Head: normal to inspection Resp Effort & Inspection: normal respiratory effort Auscultation: clear to auscultation bilaterally Cardio Rate: regular rate Rhythm: regular rhythm GI Inspection: normal to inspection Palpation: soft and No tender Skin Lesions: no lesions Rashes: no rashes Neuro General: patient alert, patient awake and moves all extremities Speech: speech normal Extrem General: normal to inspection and capillary refill normal Psych Appearance: grossly normal and well kempt Course Orders Ordered: ED Orders 08/15/21 13:29 CT Stroke Stat XR chest 1V Stat EKG-12 Lead Stat 08/15/21 13:30 Complete Blood Count AUTO DIFF Stat Comprehensive Metabolic Panel Stat Magnesium Stat Partial Thromboplastin Time Stat Prothrombin Time INR Stat Troponin & CK Cardiac Panel Stat Vital Signs Vital signs: Vital Signs - 8 hr 08/15/21 13:22 08/15/21 13:37 08/15/21 13:50 Temperature 97.5 F L Pulse Rate 62 60 60 Respiratory Rate 14 Blood Pressure 142/75 H 146/67 H Pulse Oximetry 98 99 100 08/15/21 14:00 08/15/21 14:30 Temperature Pulse Rate 60 60 Respiratory Rate Blood Pressure 136/70 138/66 Pulse Oximetry 98 99 MDM - Neuro Symptoms/Deficit Lab Data Attestation: I reviewed the patient's lab results. Result diagrams: 08/15/21 13:30 08/15/21 13:30 Labs: Lab Results 08/15/21 08/15/21 08/15/21 Range/Units 13:30 13:30 13:30 WBC 7.1 (4.5-11.0) X10^3/uL RBC 4.86 (4.5-5.9) X10^6/uL Hgb 14.9 (13.5-17.5) g/dL Hct 45.9 (41-53) % MCV 94.6 (80-100) fL MCH 30.6 (26-34) PG MCHC 32.4 (30-36) % RDW 13.8 (11.6-14.8) % Plt Count 223 (150-400) X10^3/uL Neut % (Auto) 54.5 (50-75) % Lymph % (Auto) 33.4 (25-40) % [place] % (Auto) 9.0 (3-14) % Eos % (Auto) 1.9 L (2-4) % Baso % (Auto) 1.2 (0-2) % Neut # (Auto) 3800 (5797-3494) /uL Lymph # (Auto) 2400 (8563-3299) /uL [place] # (Auto) 600 (0-900) /uL Eos # (Auto) 100 (0-450) /uL Baso # (Auto) 100 (0-100) /uL PT 15.6 H (10.1-12.7) SECONDS INR 1.4 H (0.9-1.3) APTT 40 H (26.4-36.2) SECONDS Sodium 141 (137-145) mmol/L Potassium 4.5 (3.4-5.1) mmol/L Chloride 108 H (98-107) mmol/L Carbon Dioxide 27 (22-32) mmol/L BUN 18 (9-20) mg/dL Creatinine 0.87 (0.66-1.25) mg/dL Estimated GFR > 60.0 (>60) mL/min BUN/Creatinine Ratio 20.7 (6-22) Glucose 94 (80-110) mg/dL Calcium 9.4 (8.4-10.2) mg/dL Magnesium (1.6-2.3) mg/dL Total Bilirubin 1.0 (0.2-1.3) mg/dL AST 37 (17-59) IU/L ALT 31 (<50) IU/L Alkaline Phosphatase 71 (38-126) U/L Total Creatine Kinase 81 (55-170) U/L CK-MB (CK-2) TNP CK-MB (CK-2) Rel Index TNP Troponin I < 0.012 (0.01-0.034) ng/mL Total Protein 7.8 (6.3-8.2) g/dL Albumin 4.5 (3.5-5.0) g/dL Globulin 3.3 (1.7-4.1) g/dL Albumin/Globulin Ratio 1.4 (1.0-2.8) // Range/Units 13:30 WBC (4.5-11.0) X10^3/uL RBC (4.5-5.9) X10^6/uL Hgb (13.5-17.5) g/dL Hct (41-53) % MCV (80-100) fL MCH (26-34) PG MCHC (30-36) % RDW (11.6-14.8) % Plt Count (150-400) X10^3/uL Neut % (Auto) (50-75) % Lymph % (Auto) (25-40) % [place] % (Auto) (3-14) % Eos % (Auto) (2-4) % Baso % (Auto) (0-2) % Neut # (Auto) (4203-8953) /uL Lymph # (Auto) (1160-4328) /uL [place] # (Auto) (0-900) /uL Eos # (Auto) (0-450) /uL Baso # (Auto) (0-100) /uL PT (10.1-12.7) SECONDS INR (0.9-1.3) APTT (26.4-36.2) SECONDS Sodium (137-145) mmol/L Potassium (3.4-5.1) mmol/L Chloride (98-107) mmol/L Carbon Dioxide (22-32) mmol/L BUN (9-20) mg/dL Creatinine (0.66-1.25) mg/dL Estimated GFR (>60) mL/min BUN/Creatinine Ratio (6-22) Glucose (80-110) mg/dL Calcium (8.4-10.2) mg/dL Magnesium 2.3 (1.6-2.3) mg/dL Total Bilirubin (0.2-1.3) mg/dL AST (17-59) IU/L ALT (<50) IU/L Alkaline Phosphatase (38-126) U/L Total Creatine Kinase (55-170) U/L CK-MB (CK-2) CK-MB (CK-2) Rel Index Troponin I (0.01-0.034) ng/mL Total Protein (6.3-8.2) g/dL Albumin (3.5-5.0) g/dL Globulin (1.7-4.1) g/dL Albumin/Globulin Ratio (1.0-2.8) Imaging Data CT scan - head: Radiologist's Impression: [address] [id number] Scan ReportSigned Patient: Nitesh Hawley RMR#: [id number]: 3Acct:[id number]/Sex: 75 / MDate of Service: 08/15/21Loc: EDAccession Number: [id number] Procedure: CT Stroke Ordering Provider: Tree Luther D.O. PROCEDURE: CT STROKE INDICATIONS: trouble speaking 2 days ago TECHNIQUE: Noncontrast 4.5 mm thick angled axial sections acquired from the foramen magnum to the vertex, with coronal reformats. For radiation dose reduction, the following was used: automated exposure control, adjustment of mA and/or kV according to patient size. COMPARISON: 09/02/2018 FINDINGS: Image quality: Excellent. CSF spaces: Basal cisterns are patent. No extra-axial fluid collections. Ventricles are normal in size and shape. Brain: Advanced global cerebral volume loss and chronic microvascular ischemic changes. No midline shift. No intracranial masses or hemorrhage. Hurt-white matter interface is normal. Skull and face: Calvarium and visualized facial bones are intact, without suspicious lesions. Sinuses: Visualized sinuses and mastoids are clear. IMPRESSION: No acute intracranial abnormality. Global cerebral volume loss and chronic microvascular ischemic changes. Findings were discussed with Dr. Luther at time of dictation. This study fulfills neurological imaging criteria for inclusion or exclusion of acute stroke therapies based on available published neurological imaging guidelines. Dictated by: Giovanny Khalil M.D. on 08/15/2021 at 13:54 Approved by: Giovanny Khalil M.D. on 08/15/2021 at 13:56 Chest x-ray: Radiologist's Impression: [address] [id number] ReportSigned Patient: Nitesh Hawley RMR#: [id number]: 3Acct:[id number]/Sex: 75 / MDate of Service: 08/15/21Loc: EDAccession Number: [id number] Procedure: XR chest 1V Ordering Provider: Tree Luther D.O. PROCEDURE: XR CHEST 1V INDICATIONS: Possible stroke TECHNIQUE: One view of the chest was acquired. COMPARISON: None. FINDINGS: Surgical changes and devices: Left chest wall cardiac pacing device. Lungs and pleura: Lungs are clear. No pleural effusions or pneumothorax. Mediastinum: Mediastinal contours appear normal. Heart size is normal. Bones and chest wall: No suspicious bony lesions. Overlying soft tissues appear unremarkable. IMPRESSION: No acute cardiopulmonary process demonstrated radiographically. Dictated by: Giovanny Khalil M.D. on 08/15/2021 at 13:57 Approved by: Giovanny Khalil M.D. on 08/15/2021 at 13:58 ECG Data Attestation: I personally reviewed and interpreted this ECG as follows: Interpretation: AV paced Rate of 60 MDM Narrative Medical decision making narrative: Labs unremarkable, CT scans unremarkable, is at baseline neurologic status per his who is at bedside. It appears that the symptoms he presented with today actually occurred a couple days ago. The cramping in his left hand lasted only seconds. His problems with speaking was only associated with 1 sentences. Low suspicion for CVA. I also have low suspicion for TIA based on the symptoms that his describes. Feel that we can hold on further workup for now. No change in any of his medication is warranted. When contact his primary doctor for follow-up. The patient's expressed understanding and agreement. Discharge Plan Departure Patient Disposition: Home Clinical Impression: Cramping of hands Activity Restrictions/Additional Instructions: Nitesh Can continue to take all of his medications as directed. I recommend you contact his primary doctor for a follow-up. Return to the emergency department for any new or worsening symptoms Prescriptions: No Action metoprolol tartrate 25 mg tablet 12.5 mg PO BID RF: 0 valacyclovir 500 mg tablet 500 mg PO DAILY Qty: 90 RF: 1 memantine [Namenda] 10 mg tablet 10 mg PO BID RF: 0 melatonin 3 mg capsule 3 mg PO BEDTIME PRNRF: 0 Referrals: Jared Wu MD [Primary Care Provider] -
[2021-08-15 14:30] VITALS: BP 138/66; PULSE 60; O2SAT 99
== END 2021-08-15 14:46 | disposition home or self-care (01) ==
PROVIDERS: Emergency Provider Emergency Medicine; PCP Student in an Organized Health Care Education/Training Program
DX: R25.2 Cramp and spasm (principal); R41.82 Altered mental status, unspecified; R47.9 Unspecified speech disturbances
CPT/HCPCS: 36415; 70450; 71045; 80053; 82550; 83735; 84484; 85025; 85610; 85730; 93005; 93010; 99284

== ENCOUNTER → 2021-08-27 15:04 | Outpatient (CLI) | payer MEDICARE, OTHER, SELFPAY ==
[2021-08-27 18:50] LABS: COVID19 -Nasal RAPID Negative (Negative)
== END ==
PROVIDERS: PCP Student in an Organized Health Care Education/Training Program; Referring Provider Nurse Practitioner Family; Visit Provider Nurse Practitioner Family
DX: Z20.822 Contact with and (suspected) exposure to COVID-19 (principal); J02.9 Acute pharyngitis, unspecified
CPT/HCPCS: 87635

== ENCOUNTER → 2021-09-25 12:07 | Outpatient (CLI) | payer MEDICARE, OTHER, SELFPAY ==
[2021-09-25 14:17] LABS: BUN Creatinine Ratio 15.8 (6-22); Blood Urea Nitrogen 15 mg/dL (9-20); Estimated Glomerular Filt Rate > 60.0 mL/min (>60)
== END ==
PROVIDERS: PCP Student in an Organized Health Care Education/Training Program; Referring Provider Student in an Organized Health Care Education/Training Program; Visit Provider Student in an Organized Health Care Education/Training Program
DX: Z01.818 Encounter for other preprocedural examination (principal)
CPT/HCPCS: 36415; 82565; 84520

== ENCOUNTER → 2021-09-26 10:57 | Outpatient (CLI) | payer MEDICARE, OTHER, SELFPAY ==
--- NOTE | 2021-09-26 10:59 | DI.CT.S_ITS ---
PROCEDURE: CT ABDOMEN PELVIS W CON INDICATIONS: Left lower quadrant abdominal pain TECHNIQUE: After the administration of oral and IV contrast, axial sections were acquired from the lung bases to the pubic symphysis. Coronal and sagittal reformats were performed. For radiation dose reduction, the following was used: automated exposure control, adjustment of mA and/or kV according to patient size. COMPARISON: None. FINDINGS: Image quality: Excellent. Lung bases: 4.5 mm noncalcified nodule in the right middle lobe (series 3, image 3). No consolidation or pleural effusion. Heart: No significant findings. ABDOMEN: Liver: Decreased attenuation of liver, compatible with hepatic steatosis. Gallbladder: No gallbladder wall thickening or pericholecystic fluid. 1.3 cm peripherally calcified gallstone near the neck. Biliary ducts: Unremarkable. Pancreas: Unremarkable. Spleen: Unremarkable. Adrenal Glands: No nodularity. Kidneys and Ureters: Symmetric enhancement without evidence of obstructive uropathy. 2.3 cm hypoattenuating lesion in the right upper pole, most consistent with a cyst. Stomach and Bowel: Small to moderate hiatal hernia. No evidence of intestinal obstruction. Sigmoid diverticulosis. Peritoneum: No abnormal intraperitoneal fluid. No free air. Ventral Wall: No hernia. Abdominal Nodes: No retroperitoneal or mesenteric adenopathy by size criteria. Vessels: Aorta and inferior vena cava are normal in size. PELVIS: Pelvic Organs: Prominence of the prostate measuring up to 4.4 cm. Bladder: Unremarkable. Pelvic Nodes: No enlarged lymph nodes. Miscellaneous: No inguinal hernias are seen. Bones: No acute abnormality. Remote fracture deformity of the left ribs. 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 Mild T11 superior endplate compression deformity. Grade 1 anterolisthesis at L5-S1 with moderate disc height loss and vacuum phenomena. IMPRESSION: 1. No acute intra-abdominal/pelvic abnormality. Dictated by: Chiki Strauss M.D. on 09/26/2021 at 12:34 Approved by: Chiki Strauss M.D. on 09/26/2021 at 12:47
== END ==
PROVIDERS: PCP Student in an Organized Health Care Education/Training Program; Referring Provider Student in an Organized Health Care Education/Training Program; Visit Provider Student in an Organized Health Care Education/Training Program
DX: R10.32 Left lower quadrant pain (principal); K44.9 Diaphragmatic hernia without obstruction or gangrene; K76.0 Fatty (change of) liver, not elsewhere classified; M43.17 Spondylolisthesis, lumbosacral region; R91.1 Solitary pulmonary nodule; K57.30 Diverticulosis of large intestine without perforation or abscess without bleeding
CPT/HCPCS: 74177

== ENCOUNTER 2021-12-24 08:47 | Emergency (ER) | payer MEDICARE, OTHER, SELFPAY ==
[2021-12-24] VITALS (10 sets, daily range): BP systolic 117–192; BP diastolic 68–123; PULSE 60; RESP 14–33; TEMP 35.8; O2SAT 98–100; BMI 28.0
--- NOTE | 2021-12-24 09:01 | ED_ITS ---
HPI - General Adult General Chief complaint: Abdominal Pain Stated complaint: PAIN RIGHT SIDE CHEST AND ABD Time Seen by Provider: 12/24/21 08:53 History of Present Illness HPI narrative: 76-year-old gentleman with a history of hypertension, atrial fibrillation on right peroxide van with pacemaker in place, dementia who presents with right- sided chest wall pain that began last night. He had difficulty sleeping secondary to the pain and an episode of emesis prior to arriving in the ER this morning. His notes that the last time he had similar type pain he ended up having a bowel obstruction. She describes no recent fevers, cough, chills, headache, change to his baseline behaviors or focal neurologic abnormalities. Related Data Home Medications Medication Instructions Recorded Confirmed melatonin 3 mg capsule 3 mg PO BEDTIME PRN 10/27/19 10/20/21 memantine 10 mg tablet (Namenda) 10 mg PO BID 10/27/19 10/20/21 metoprolol tartrate 25 mg tablet 12.5 mg PO BID 06/26/20 10/20/21 rivaroxaban 20 mg tablet (Xarelto) 20 mg PO DAILY 08/27/21 10/20/21 Previous Rx's Medication Instructions Recorded valacyclovir 500 mg tablet 500 mg PO DAILY #90 tab 08/23/21 ondansetron 4 mg disintegrating 4 mg PO Q6H PRN #14 tab 12/24/21 tablet Allergies Allergy/AdvReac Type Severity Reaction Status Date / Time quinine Allergy Intermediate HIVES Verified 10/20/21 09:57 hydrocodone Allergy Mild REACTED Verified 10/20/21 09:57 PRETTY BAD TOO IT. donepezil Allergy Unknown unknown Verified 10/20/21 09:57 galantamine Allergy Unknown unknown Verified 10/20/21 09:57 rivastigmine Allergy Unknown Redness of Verified 10/20/21 09:57 Skin Review of Systems Review of Systems Narrative: Remainder of complete review of systems is otherwise unremarkable except for that included in the HPI. Patient History Medical History Chicken pox Chronic back pain Dementia Fractures Hearing loss Measles Memory problem Vision disorder Surgical History Anesthesia History of carpal tunnel repair History of eye surgery (~04/26/14) History of hemorrhoidectomy History of rotator cuff surgery History of thumb surgery Pacemaker (~03/04/18) Status post hernia repair (~08/01/08) Status post LASIK surgery of both eyes Family History Father History of heart disease Mother Diabetes mellitus Brother History of heart disease Social History marital status: household members: spouse Smoking Status: Former smoker alcohol intake: never Smoking Status: Former smoker Exam Initial Vital Signs Initial Vital Signs: Vital Signs Pulse Rate 60 12/24/21 08:59 Respiratory Rate 14 12/24/21 08:59 Blood Pressure 117/85 12/24/21 08:59 Pulse Oximetry 99 12/24/21 08:59 General: Healthy appearing, in a mild amount of pain. Well-nourished well-dev eloped HEENT: Moist mucous membranes, normal sclera with reactive pupils, Neck: No JVD, supple Respiratory: Lungs are clear to auscultation, no wheezing no rales no rhonchi. Full and symmetrical air movement Cardiac: Regular rate and rhythm no murmurs no bruits Chest: He has some tenderness right anterior axillary line ribs 10 and 11 with some fullness over that area and no corresponding skin findings over that. Abdomen: Soft, nontender, good bowel tones, no flank pain Skin: Warm and dry, no rashes Neurologic: Grossly neurologically intact with no obvious asymmetries or abnormalities Extremities: No trauma, well perfused Psych: Cooperative, cognitive dysfunction/memory loss Course Orders Ordered: ED Orders 12/24/21 09:01 XR ribs RT min 3V w CXR1V Stat 12/24/21 09:10 Complete Blood Count AUTO DIFF Stat Comprehensive Metabolic Panel Stat Lipase Stat Magnesium Stat Troponin I Stat 12/24/21 09:21 COVID19 -Nasal swab/Pre-Proc Stat Discontinued Medications Acetaminophen (Acetaminophen 325 Mg Tablet) 975 mg PO NOW ONE Stop: 12/24/21 09:02 Hydromorphone HCl (Hydromorphone 0.5 Mg Inj) 0.25 mg IV NOW ONE Stop: 12/24/21 09:57 Last Admin: 12/24/21 10:04 Dose: 0.25 mg Documented by: JETHRO Ondansetron HCl (Ondansetron 4 Mg/2 Ml Inj) 4 mg IV NOW ONE Stop: 12/24/21 09:37 Last Admin: 12/24/21 09:38 Dose: 4 mg Documented by: COLLEEN Vital Signs Vital signs: Vital Signs - 8 hr 12/24/21 08:59 12/24/21 09:00 12/24/21 09:01 Temperature 96.5 F L Pulse Rate 60 60 60 Respiratory Rate 14 15 14 Blood Pressure 117/85 192/88 H 192/88 H Pulse Oximetry 99 100 100 12/24/21 09:30 12/24/21 09:31 12/24/21 10:00 Temperature Pulse Rate 60 60 60 Respiratory Rate 16 19 24 Blood Pressure 170/123 H Pulse Oximetry 99 100 98 12/24/21 10:01 Temperature Pulse Rate 60 Respiratory Rate 33 H Blood Pressure 166/99 H Pulse Oximetry 98 Medical Decision Making Lab Data Result diagrams: 12/24/21 09:10 12/24/21 09:10 Labs: Lab Results 12/24/21 12/24/21 12/24/21 Range/Units 09:10 09:10 09:21 WBC 7.6 (4.5-11.0) X10^3/uL RBC 4.80 (4.5-5.9) X10^6/uL Hgb 14.4 (13.5-17.5) g/dL Hct 43.4 (41-53) % MCV 90.4 (80-100) fL MCH 29.9 (26-34) PG MCHC 33.1 (30-36) % RDW 14.2 (11.6-14.8) % Plt Count 230 (150-400) X10^3/uL Neut % (Auto) 71.0 (50-75) % Lymph % (Auto) 20.6 L (25-40) % [place] % (Auto) 6.2 (3-14) % Eos % (Auto) 1.2 L (2-4) % Baso % (Auto) 1.0 (0-2) % Neut # (Auto) 5400 (8997-7986) /uL Lymph # (Auto) 1600 (4608-1359) /uL [place] # (Auto) 500 (0-900) /uL Eos # (Auto) 100 (0-450) /uL Baso # (Auto) 100 (0-100) /uL Sodium 140 (137-145) mmol/L Potassium 4.5 (3.4-5.1) mmol/L Chloride 107 (98-107) mmol/L Carbon Dioxide 26 (22-32) mmol/L BUN 14 (9-20) mg/dL Creatinine 1.18 (0.66-1.25) mg/dL Estimated GFR 59.7 L (>60) mL/min BUN/Creatinine Ratio 11.9 (6-22) Glucose 137 H (80-110) mg/dL Calcium 9.6 (8.4-10.2) mg/dL Magnesium 2.1 (1.6-2.3) mg/dL Total Bilirubin 0.6 (0.2-1.3) mg/dL AST 29 (17-59) IU/L ALT 30 (<50) IU/L Alkaline Phosphatase 72 (38-126) U/L Troponin I < 0.012 (0.01-0.034) ng/mL Total Protein 7.8 (6.3-8.2) g/dL Albumin 4.4 (3.5-5.0) g/dL Globulin 3.4 (1.7-4.1) g/dL Albumin/Globulin Ratio 1.3 (1.0-2.8) Lipase 180 (23-300) U/L SARS-CoV-2 (PCR) Negative (Negative) Imaging Data Chest x-ray: Radiologist's Impression: FINDINGS:? ? Surgical changes and devices:? Dual lead left-sided pacemaker.? Bone anchors in the left humeral head.? Surgical clips in the upper aspect of the abdomen. ? Bones and chest wall:? No acute fractures or dislocations.? Deformity of remote, healed left lateral upper rib fractures.? No suspicious bony lesions.? Overlying soft tissues appear unremarkable.? ? Lungs and pleura:? No pleural effusions or pneumothorax.? Lungs appear clear.? ? Mediastinum:? Mediastinal contours appear normal.? Heart size is normal.? Moder ate-sized hiatal hernia in the retrocardiac region. ? IMPRESSION:? ? 1. No visible displaced right rib fractures. ? 2. Chronic hiatal hernia.? ? 3. No evidence of acute underlying lung trauma.? ? ? Dictated by: Vernell Blanco M.D. on 12/24/2021 at 9:39? ?? ECG Data Interpretation: Paced rhythm at a rate of 60 MDM Narrative Medical decision making narrative: 76-year-old gentleman with Alzheimer's disease any home care by his presents with lower right-sided rib pain that started last night. Seem to be relieved with nausea medication and dramatically improved after an episode of emesis in the emergency department. Labs are entirely reassuring with no evidence of acute infection, kidney failure, liver failure, electrolyte abnormalities. Chest x-ray is benign and does not reveal any significant abnormality over the area of tenderness. He does not have any skin changes to suggest acute zoster however this certainly could be prodromal. He is COVID negative. Given the dramatic amount of pain that that this gentleman experienced with an IV start and with blood pressure readings it is difficult to fully assess the degree of pain that he is experiencing in the right rib area. At this point there are no life-threatening abnormalities appreciated including an appropriately paced EKG and a normal troponin. He has no abdominal pain on physical exam. Certainly no evidence for a bowel obstruction. At this time I believe he is safe for home discharge. Will give him a prescription for Zofran to use as needed for nausea and asked his to have him return if symptoms worsen or she notes new findings. Concerns of findings reviewed with patient's . Questions are answered he is safe for home discharge Discharge Plan Departure Patient Disposition: Home Clinical Impression: Rib pain on right side, Nausea & vomiting Instructions: DI for Nausea -- Adult Activity Restrictions/Additional Instructions: Thank you for coming in today I did not find any life threatening abnormalities to explain your pain or vomiting today. Specifically, you do not have pneumonia, you do not have of collapsed lung, no broken ribs, no heart attack or heart attack like syndrome, no kidney, gallbladder, liver or bowel problems. Your COVID test was negative today At this time, it is safe for you to go home. I would expect that the rib pain will continue for a couple of days. It is okay to use to Tylenol as needed. Please keep an eye on this area and if you develop any red bumps or blisters please contact your primary care doctor. Sometimes shingles/zoster will hurt in the way that your hurting for a day or 2 before the rash shows up I have given you some Zofran that you can use every 6 hours as needed to control nausea. A prescription was electronically transmitted to [facility] If you feel that you are getting worse, please return to the ER Prescriptions: New ondansetron 4 mg tablet,disintegrating 4 mg PO Q6H PRN (Reason: nausea and vomiting) Qty: 14 0RF No Action Xarelto 20 mg tablet 20 mg PO DAILY 0RF Rx Instructions: must administer with evening meal metoprolol tartrate 25 mg tablet 12.5 mg PO BID 0RF valacyclovir 500 mg tablet 500 mg PO DAILY Qty: 90 1RF memantine [Namenda] 10 mg tablet 10 mg PO BID 0RF melatonin 3 mg capsule 3 mg PO BEDTIME PRN0RF Referrals: Jared Wu MD [Primary Care Provider] -
--- NOTE | 2021-12-24 09:01 | DI.RAD.S_ITS ---
PROCEDURE: XR RIBS RT MIN 3V W CXR 1V INDICATIONS: rib pain, right anterior lower ribs TECHNIQUE: Two views of the right ribs were acquired, along with a single view chest. COMPARISON: Located Within [facility], CR, XR CHEST 1V, 08/15/2021, 13:34. FINDINGS: Surgical changes and devices: Dual lead left-sided pacemaker. Bone anchors in the left humeral head. Surgical clips in the upper aspect of the abdomen. Bones and chest wall: No acute fractures or dislocations. Deformity of remote, healed left lateral upper rib fractures. No suspicious bony lesions. Overlying soft tissues appear unremarkable. Lungs and pleura: No pleural effusions or pneumothorax. Lungs appear clear. Mediastinum: Mediastinal contours appear normal. Heart size is normal. Moderate-sized hiatal hernia in the retrocardiac region. IMPRESSION: 1. No visible displaced right rib fractures. 2. Chronic hiatal hernia. 3. No evidence of acute underlying lung trauma. Dictated by: Vernell Blanco M.D. on 12/24/2021 at 9:39 Approved by: Vernell Blanco M.D. on 12/24/2021 at 9:42
[2021-12-24 09:22] LABS: Add Manual Diff / Slide Review NO; Basophils Absolute Auto 100 /uL (0-100); Eosinophils Absolute Auto 100 /uL (0-450); Eosinophils Percent Auto 1.2 % (2-4); Hematocrit 43.4 % (41-53); Hemoglobin 14.4 g/dL (13.5-17.5); Lymphocytes Absolute Auto 1600 /uL (1100-4500); Lymphocytes Percent Auto 20.6 % (25-40); Mean Corpuscular HGB Conc 33.1 % (30-36); Mean Corpuscular Hemoglobin 29.9 PG (26-34); Mean Corpuscular Volume 90.4 fL (80-100); Monocytes Absolute Auto 500 /uL (0-900); Monocytes Percent Auto 6.2 % (3-14); Neutrophils Absolute Auto 5400 /uL (1500-7000); Platelet Count 230 X10^3/uL (150-400); Red Cell Distribution Width 14.2 % (11.6-14.8); White Blood Cell Count 7.6 X10^3/uL (4.5-11.0)
[2021-12-24 09:32] LABS: Alanine Aminotransferase 30 IU/L (<50); Albumin 4.4 g/dL (3.5-5.0); Albumin Globulin Ratio 1.3 (1.0-2.8); Alkaline Phosphatase 72 U/L (38-126); Aspartate Aminotransferase 29 IU/L (17-59); BUN Creatinine Ratio 11.9 (6-22); Bilirubin Total 0.6 mg/dL (0.2-1.3); Blood Urea Nitrogen 14 mg/dL (9-20); Calcium 9.6 mg/dL (8.4-10.2); Carbon Dioxide 26 mmol/L (22-32); Chloride 107 mmol/L (98-107); Estimated Glomerular Filt Rate 59.7 mL/min (>60); Globulin 3.4 g/dL (1.7-4.1); Glucose 137 mg/dL (80-110); HEMOLYSIS < 15 (0-50); Lipase 180 U/L (23-300); Magnesium 2.1 mg/dL (1.6-2.3); Potassium 4.5 mmol/L (3.4-5.1); Sodium 140 mmol/L (137-145); Total Protein 7.8 g/dL (6.3-8.2)
[2021-12-24] MEDS: ONDANSETRON 4 MG/2 ML INJ IV (09:38)
[2021-12-24 09:43] LABS: Troponin I < 0.012 ng/mL (0.01-0.034)
[2021-12-24 09:44] LABS: COVID19 -Nasal RAPID Negative (Negative)
[2021-12-24] MEDS: HYDROMORPHONE 0.5 MG INJ 0.25 MG IV (10:04)
== END 2021-12-24 11:20 | disposition home or self-care (01) ==
PROVIDERS: Emergency Provider Emergency Medicine; PCP Student in an Organized Health Care Education/Training Program
DX: R07.81 Pleurodynia (principal); R11.2 Nausea with vomiting, unspecified; Z20.822 Contact with and (suspected) exposure to COVID-19
CPT/HCPCS: 36415; 71101; 80053; 83690; 83735; 84484; 85025; 87635; 93005; 99284; C9803; J1170; J2405

== ENCOUNTER 2021-12-26 08:55 | Inpatient (IN) | payer MEDICARE, OTHER, SELFPAY ==
[2021-12-26] VITALS (29 sets, daily range): BP systolic 134–172; BP diastolic 68–116; PULSE 50–98; RESP 18–35; TEMP 36.1–38.1; O2SAT 93–97; BMI 27.5
--- NOTE | 2021-12-26 08:58 | ED.GENADULT ---
HPI - General Adult General Chief complaint: Abdominal Pain Stated complaint: ill, not eating Time Seen by Provider: 12/26/21 08:56 Source: patient and EMS Mode of arrival: EMS Limitations: other (History of dementia) History of Present Illness HPI narrative: Patient is a 76-year-old male. Reported history of Alzheimer's disease. Was seen here in the emergency department a couple days ago for right sided upper abdominal/chest wall discomfort. Had x-rays and labs performed. Was eventually discharged home. Per EMS they were called this morning by the patient's . Apparently since that time patient has continued to decline. Is continuing to complain of discomfort in the same area has a couple days ago. Has had decreased oral intake. EMS did give him oral Zofran in route otherwise no other interventions. Here in the emergency department patient states he just feels miserable. Points to his right upper quadrant and right-sided chest as the area of the location. Does seem to have discomfort with palpation of this area. He denies any change in urination or bowel movements. He states that he is not currently nauseous. He has no chest pain. No problems breathing. Related Data Home Medications Medication Instructions Recorded Confirmed melatonin 3 mg capsule 3 mg PO BEDTIME PRN 10/27/19 12/26/21 memantine 10 mg tablet (Namenda) 10 mg PO BID 10/27/19 12/26/21 metoprolol tartrate 25 mg tablet 12.5 mg PO BID 06/26/20 12/26/21 rivaroxaban 20 mg tablet (Xarelto) 20 mg PO DAILY 08/27/21 12/26/21 Previous Rx's Medication Instructions Recorded valacyclovir 500 mg tablet 500 mg PO DAILY #90 tab 08/23/21 ondansetron 4 mg disintegrating 4 mg PO Q6H PRN #14 tab 12/24/21 tablet Allergies Allergy/AdvReac Type Severity Reaction Status Date / Time quinine Allergy Intermediate HIVES Verified 12/26/21 09:00 hydrocodone Allergy Mild REACTED Verified 12/26/21 16:14 PRETTY BAD TO IT. donepezil Allergy Unknown unknown Verified 12/26/21 09:00 galantamine Allergy Unknown unknown Verified 12/26/21 09:00 rivastigmine Allergy Unknown Redness of Verified 12/26/21 09:00 Skin Review of Systems Constitutional Constitutional: Reports fatigue and Denies fever(s) Cardiovascular Cardiovascular: Denies chest pain and Denies dyspnea Respiratory Respiratory: Denies dyspnea Gastrointestinal Gastrointestinal: Reports as per HPI and Reports system reviewed and no additional complaints, except as documented Genitourinary Genitourinary: Denies dysuria Musculoskeletal Musculoskeletal: Denies back pain Neurologic Neurologic: Reports system reviewed and no additional complaints, except as documented Endocrine Endocrine: Reports fatigue Hematologic/Lymphatic On Anticoagulants: Yes Patient History Medical History Chicken pox Chronic back pain Dementia Fractures Hearing loss Measles Memory problem Vision disorder Surgical History Anesthesia History of carpal tunnel repair History of eye surgery (~04/26/14) History of hemorrhoidectomy History of rotator cuff surgery History of thumb surgery Pacemaker (~03/04/18) Status post hernia repair (~08/01/08) Status post LASIK surgery of both eyes Family History Father History of heart disease Mother Diabetes mellitus Brother History of heart disease Social History marital status: household members: spouse Smoking Status: Former smoker alcohol intake: never Smoking Status: Former smoker alcohol intake frequency: 0-2 drinks per day Substance Use Type: does not use Exam Initial Vital Signs Initial Vital Signs: Vital Signs Pulse Rate 93 H 12/26/21 08:53 Pulse Oximetry 95 12/26/21 08:53 Const General: cooperative and healthy appearing [facility] Head: normal to inspection Chest Other: Apparent discomfort to palpation right lower ribs. Resp Effort & Inspection: normal respiratory effort Auscultation: clear to auscultation bilaterally Cardio Rate: regular rate Rhythm: regular rhythm GI Inspection: distended Other: Tender to palpation right upper quadrant Back/Spine/Pelvis Back: No CVA tenderness Skin General: no rashes or lesions noted Neuro General: patient alert, patient awake and moves all extremities Other: Patient is oriented to person and place and date. He seems to understand why he is here in the emergency department but does not know the year nor the month. Extrem General: capillary refill normal Psych Appearance: grossly normal and well kempt Course Orders Ordered: ED Orders 12/26/21 10:53 Consult to General Surgery Stat Piperacillin Sod/Tazobactam (Sod 3.375 gm/ Sodium Chloride) 100 mls @ 25 mls/hr IV Q8H [facility] Melatonin (Melatonin 3 Mg Tablet) 3 mg PO BEDTIME PRN PRN Reason: Sleep Memantine (Memantine Hcl 5 Mg Tablet) 10 mg PO BID DANYEL Metoprolol Tartrate (Metoprolol Ir 25 Mg Tablet) 12.5 mg PO BID [facility] Morphine Sulfate (Morphine 2 Mg/Ml Inj) 2 mg IV Q2HR PRN PRN Reason: Pain, Moderate (4-6) Last Admin: 12/26/21 13:55 Dose: 2 mg Documented by: Admin: 12/26/21 09:23 Dose: 2 mg Documented by: JETHRO Ondansetron HCl (Ondansetron 4 Mg/2 Ml Inj) 4 mg IV Q2HR PRN PRN Reason: Nausea And Vomiting Last Admin: 12/26/21 09:23 Dose: 4 mg Documented by: JETHRO Discontinued Medications Enoxaparin Sodium (Enoxaparin 40 Mg/0.4 Ml Syringe) 40 mg SUBCUT DAILY [facility] Sodium Chloride (Normal Saline 0.9%) 1,000 mls @ 500 mls/hr IV BOLUS ONE Stop: 12/26/21 10:55 Last Infusion: 12/26/21 12:37 Dose: 0 mls/hr Documented by: Admin: 12/26/21 09:05 Dose: 500 mls/hr Documented by: JETHRO Ceftriaxone Sodium 1,000 mg/ (Sodium Chloride) 100 mls @ 200 mls/hr IV NOW ONE Stop: 12/26/21 09:22 Last Infusion: 12/26/21 10:15 Dose: 0 mls/hr Documented by: Admin: 12/26/21 09:29 Dose: 200 mls/hr Documented by: JETHRO Piperacillin Sod/Tazobactam (Sod 4.5 gm/ Sodium Chloride) 100 mls @ 200 mls/hr IV NOW ONE Stop: 12/26/21 14:13 Last Infusion: 12/26/21 15:10 Dose: 0 mls/hr Documented by: Admin: 12/26/21 14:38 Dose: 200 mls/hr Documented by: GARLAND Phytonadione 5 mg/ Sodium (Chloride) 100.5 mls @ 201 mls/hr IV NOW ONE Stop: 12/26/21 18:24 Vital Signs Vital signs: Vital Signs - 8 hr 12/26/21 11:00 12/26/21 11:15 12/26/21 11:30 Temperature Pulse Rate 80 80 74 Respiratory Rate 21 19 21 Blood Pressure 154/95 H 164/116 H Pulse Oximetry 96 97 12/26/21 11:45 12/26/21 12:00 12/26/21 12:01 Temperature Pulse Rate 74 75 75 Respiratory Rate 21 20 23 Blood Pressure 167/70 H Pulse Oximetry 96 95 95 12/26/21 12:15 12/26/21 12:30 12/26/21 12:32 Temperature Pulse Rate 78 79 80 Respiratory Rate 22 21 21 Blood Pressure 172/87 H Pulse Oximetry 97 94 95 12/26/21 12:45 12/26/21 13:00 12/26/21 13:01 Temperature Pulse Rate 78 81 82 Respiratory Rate 24 27 H 30 H Blood Pressure 150/71 H Pulse Oximetry 96 95 96 12/26/21 13:15 12/26/21 13:55 Temperature 98.1 F Pulse Rate 83 Respiratory Rate 35 H Blood Pressure Pulse Oximetry 95 Medical Decision Making Medical Records Medical records reviewed: Yes I reviewed the patient's medical records. Lab Data Lab results reviewed: Yes I reviewed the patient's lab results. Result diagrams: 12/26/21 08:57 12/26/21 08:58 Labs: Lab Results 12/26/21 12/26/21 12/26/21 Range/Units 08:57 08:58 08:58 WBC 26.5 H D (4.5-11.0) X10^3/uL RBC 4.98 (4.5-5.9) X10^6/uL Hgb 14.8 (13.5-17.5) g/dL Hct 45.1 (41-53) % MCV 90.6 (80-100) fL MCH 29.8 (26-34) PG MCHC 32.9 (30-36) % RDW 14.1 (11.6-14.8) % Plt Count 233 (150-400) X10^3/uL Neut % (Auto) 87.5 H (50-75) % Lymph % (Auto) 6.3 L (25-40) % [place] % (Auto) 6.0 (3-14) % Eos % (Auto) 0.0 L (2-4) % Baso % (Auto) 0.2 (0-2) % Neut # (Auto) 76543 H (1618-1111) /uL Lymph # (Auto) 1700 (6241-9814) /uL [place] # (Auto) 1600 H (0-900) /uL Eos # (Auto) 0 (0-450) /uL Baso # (Auto) 0 (0-100) /uL PT 47.8 H (10.1-12.7) SECONDS INR 4.1 H (0.9-1.3) APTT 43 H (26.4-36.2) SECONDS Sodium 138 (137-145) mmol/L Potassium 4.3 (3.4-5.1) mmol/L Chloride 105 (98-107) mmol/L Carbon Dioxide 23 (22-32) mmol/L BUN 27 H (9-20) mg/dL Creatinine 1.42 H (0.66-1.25) mg/dL Estimated GFR 48.2 L (>60) mL/min BUN/Creatinine Ratio 19.0 (6-22) Glucose 165 H (80-110) mg/dL Lactate (0.7-2.1) mmol/L Calcium 9.9 (8.4-10.2) mg/dL Total Bilirubin 2.0 H (0.2-1.3) mg/dL AST 48 (17-59) IU/L ALT 39 (<50) IU/L Alkaline Phosphatase 60 (38-126) U/L Total Creatine Kinase 100 (55-170) U/L CK-MB (CK-2) TNP CK-MB (CK-2) Rel Index TNP Troponin I < 0.012 (0.01-0.034) ng/mL Total Protein 7.9 (6.3-8.2) g/dL Albumin 4.2 (3.5-5.0) g/dL Globulin 3.7 (1.7-4.1) g/dL Albumin/Globulin Ratio 1.1 (1.0-2.8) Lipase 26 D (23-300) U/L Procalcitonin (<0.5) ng/mL SARS-CoV-2 (PCR) (Negative) 12/26/21 12/26/21 12/26/21 Range/Units 08:58 08:58 09:35 WBC (4.5-11.0) X10^3/uL RBC (4.5-5.9) X10^6/uL Hgb (13.5-17.5) g/dL Hct (41-53) % MCV (80-100) fL MCH (26-34) PG MCHC (30-36) % RDW (11.6-14.8) % Plt Count (150-400) X10^3/uL Neut % (Auto) (50-75) % Lymph % (Auto) (25-40) % [place] % (Auto) (3-14) % Eos % (Auto) (2-4) % Baso % (Auto) (0-2) % Neut # (Auto) (2309-1922) /uL Lymph # (Auto) (7097-1513) /uL [place] # (Auto) (0-900) /uL Eos # (Auto) (0-450) /uL Baso # (Auto) (0-100) /uL PT (10.1-12.7) SECONDS INR (0.9-1.3) APTT (26.4-36.2) SECONDS Sodium (137-145) mmol/L Potassium (3.4-5.1) mmol/L Chloride (98-107) mmol/L Carbon Dioxide (22-32) mmol/L BUN (9-20) mg/dL Creatinine (0.66-1.25) mg/dL Estimated GFR (>60) mL/min BUN/Creatinine Ratio (6-22) Glucose (80-110) mg/dL Lactate 2.4 H (0.7-2.1) mmol/L Calcium (8.4-10.2) mg/dL Total Bilirubin (0.2-1.3) mg/dL AST (17-59) IU/L ALT (<50) IU/L Alkaline Phosphatase (38-126) U/L Total Creatine Kinase (55-170) U/L CK-MB (CK-2) CK-MB (CK-2) Rel Index Troponin I (0.01-0.034) ng/mL Total Protein (6.3-8.2) g/dL Albumin (3.5-5.0) g/dL Globulin (1.7-4.1) g/dL Albumin/Globulin Ratio (1.0-2.8) Lipase (23-300) U/L Procalcitonin 15.6 H (<0.5) ng/mL SARS-CoV-2 (PCR) Negative (Negative) 12/26/21 Range/Units 13:22 WBC (4.5-11.0) X10^3/uL RBC (4.5-5.9) X10^6/uL Hgb (13.5-17.5) g/dL Hct (41-53) % MCV (80-100) fL MCH (26-34) PG MCHC (30-36) % RDW (11.6-14.8) % Plt Count (150-400) X10^3/uL Neut % (Auto) (50-75) % Lymph % (Auto) (25-40) % [place] % (Auto) (3-14) % Eos % (Auto) (2-4) % Baso % (Auto) (0-2) % Neut # (Auto) (6823-6010) /uL Lymph # (Auto) (0548-2988) /uL [place] # (Auto) (0-900) /uL Eos # (Auto) (0-450) /uL Baso # (Auto) (0-100) /uL PT (10.1-12.7) SECONDS INR (0.9-1.3) APTT (26.4-36.2) SECONDS Sodium (137-145) mmol/L Potassium (3.4-5.1) mmol/L Chloride (98-107) mmol/L Carbon Dioxide (22-32) mmol/L BUN (9-20) mg/dL Creatinine (0.66-1.25) mg/dL Estimated GFR (>60) mL/min BUN/Creatinine Ratio (6-22) Glucose (80-110) mg/dL Lactate 1.9 (0.7-2.1) mmol/L Calcium (8.4-10.2) mg/dL Total Bilirubin (0.2-1.3) mg/dL AST (17-59) IU/L ALT (<50) IU/L Alkaline Phosphatase (38-126) U/L Total Creatine Kinase (55-170) U/L CK-MB (CK-2) CK-MB (CK-2) Rel Index Troponin I (0.01-0.034) ng/mL Total Protein (6.3-8.2) g/dL Albumin (3.5-5.0) g/dL Globulin (1.7-4.1) g/dL Albumin/Globulin Ratio (1.0-2.8) Lipase (23-300) U/L Procalcitonin (<0.5) ng/mL SARS-CoV-2 (PCR) (Negative) Imaging Data CT scan - abdomen/pelvis: Radiologist's Impression: [address] [address] [address] Scan Report Signed Patient: Nitesh Hawley MR#: [id number] : 1945 Acct:[id number] Age/Sex: 76 / M Date of Service: 12/26/21 Loc: ED Accession Number: [id number] ?? Procedure: CT abdomen pelvis w con Ordering Provider: Tree Luther D.O. PROCEDURE:? CT ABDOMEN PELVIS W CON ? INDICATIONS:? Right-sided abdominal pain ? TECHNIQUE:? After the administration of intravenous contrast, axial sections acquired from the lung bases to the pubic symphysis.? Coronal and sagittal reformats were performed.? For radiation dose reduction, the following was used:? automated exposure control, adjustment of mA and/or kV according to patient size.? ? COMPARISON:? [facility], CT, CT ABDOMEN PELVIS W CON, 09/26/2021, 12:08. ? FINDINGS: ? Lower thorax: The lung bases are clear.? Heart size normal.? Cardiac pacer wires noted.? Moderate hiatal hernia noted.? There is distal esophageal smooth wall thickening consistent with partially visualized esophagus. ? Liver: The liver is diffusely decreased in attenuation without focal mass lesion. ? Biliary system:? Gallbladder is distended with wall thickening and pericholecystic inflammatory change consistent acute cholecystitis.? Dependent gallstone noted as well.? No intra or extrahepatic bile duct dilatation. ? Pancreas:? Unremarkable without mass or inflammation evident. ? Spleen:? Normal in size and density. ? Adrenals:? Normal morphology and density. ? Reproductive system:? Unremarkable as visualized. ? Urinary system:? Normal renal size and attenuation.? 2.2 cm right renal cortical cyst.? No renal calculi, hydronephrosis, or solid mass present.? Urinary bladder unremarkable. ? Gastrointestinal system:? The bowel is unremarkable without evidence of bowel obstruction or inflammation. The stomach appears unremarkable.? Multiple diverticula arise from the sigmoid colon without evidence of diverticulitis. ? ? Appendix:? No findings to suggest acute appendicitis. ? Peritoneal spaces:? No mesenteric or retroperitoneal adenopathy.? No free air.? Small amount of free fluid in the pelvis.? ? Vasculature:? Aortic atherosclerotic vascular calcification noted without evidence of aneurysm. ? Abdominal wall:? Abdominal wall intact without evidence of ventral or inguinal hernias. ? Musculoskeletal:? Normal bone mineralization.? Degenerative disc disease and arthropathy noted in lower lumbar spine.? L5 bilateral spondylolysis and grade 2 anterior spondylolisthesis L5-S1 is noted.? No acute fractures.? Old healed left-sided rib fractures noted.? Old T11 compression fracture unchanged. ? IMPRESSION: ? 1. Acute cholecystitis.? Cholelithiasis, gallbladder distention and pericholecystic inflammation noted. ? 2. Moderate hiatal hernia with evidence of distal esophagitis.? ? 3. Chronic findings include hepatic fatty infiltration, aortic atherosclerosis, sigmoid diverticulosis without diverticulitis, degenerative disc disease with L5-S1 isthmic grade 2 spondylolisthesis ? ? Approved by: Jaron Garber M.D. on 12/26/2021 at 9:32? ECG Data Attestation: I personally reviewed and interpreted this ECG as follows: Interpretation: Sinus rhythm Ventricular rate 91 Normal axis Normal QRS Normal QTC Some artifact noted No ST T wave changes MDM Narrative Medical decision making narrative: Patient with right upper quadrant pain. Leukocytosis. Elevated bilirubin. Normal LFTs. Normal lipase. CT scan shows what appears to be acute cholecystitis. Does have a history of dementia but is really only confused about the year in the month. Patient was given antibiotics. Discussed the case with General surgery who recommended admission to the medicine service given his elevated INR. Patient is not on Coumadin. Unsure of the etiology of this however it could be a vitamin K deficiency. Discussed the case with Dr. Dempsey with internal medicine who will admit for further evaluation and make decisions on reversal of his INR in preparation for surgery. Discussed the need for surgery admission and surgery with the patient. His is also at bedside. They expressed understanding and agreement. Discharge Plan Departure Patient Disposition: Admitted As Inpatient Clinical Impression: Acute cholecystitis Admit Date/Time: 12/26/21 14:58 Admit Provider: J Carlos Dempsey
--- NOTE | 2021-12-26 08:59 | DI.CT.S_ITS ---
PROCEDURE: CT ABDOMEN PELVIS W CON INDICATIONS: Right-sided abdominal pain TECHNIQUE: After the administration of intravenous contrast, axial sections acquired from the lung bases to the pubic symphysis. Coronal and sagittal reformats were performed. For radiation dose reduction, the following was used: automated exposure control, adjustment of mA and/or kV according to patient size. COMPARISON: [facility], CT, CT ABDOMEN PELVIS W CON, 09/26/2021, 12:08. FINDINGS: Lower thorax: The lung bases are clear. Heart size normal. Cardiac pacer wires noted. Moderate hiatal hernia noted. There is distal esophageal smooth wall thickening consistent with partially visualized esophagus. Liver: The liver is diffusely decreased in attenuation without focal mass lesion. Biliary system: Gallbladder is distended with wall thickening and pericholecystic inflammatory change consistent acute cholecystitis. Dependent gallstone noted as well. No intra or extrahepatic bile duct dilatation. Pancreas: Unremarkable without mass or inflammation evident. Spleen: Normal in size and density. Adrenals: Normal morphology and density. Reproductive system: Unremarkable as visualized. Urinary system: Normal renal size and attenuation. 2.2 cm right renal cortical cyst. No renal calculi, hydronephrosis, or solid mass present. Urinary bladder unremarkable. Gastrointestinal system: The bowel is unremarkable without evidence of bowel obstruction or inflammation. The stomach appears unremarkable. Multiple diverticula arise from the sigmoid colon without evidence of diverticulitis. Appendix: No findings to suggest acute appendicitis. Peritoneal spaces: No mesenteric or retroperitoneal adenopathy. No free air. Small amount of free fluid in the pelvis. Vasculature: Aortic atherosclerotic vascular calcification noted without evidence of aneurysm. Abdominal wall: Abdominal wall intact without evidence of ventral or inguinal hernias. Musculoskeletal: Normal bone mineralization. Degenerative disc disease and arthropathy noted in lower lumbar spine. L5 bilateral spondylolysis and grade 2 anterior spondylolisthesis L5-S1 is noted. No acute fractures. Old healed left-sided rib fractures noted. Old T11 compression fracture unchanged. IMPRESSION: 1. Acute cholecystitis. Cholelithiasis, gallbladder distention and pericholecystic inflammation noted. 2. Moderate hiatal hernia with evidence of distal esophagitis. 3. Chronic findings include hepatic fatty infiltration, aortic atherosclerosis, sigmoid diverticulosis without diverticulitis, degenerative disc disease with L5-S1 isthmic grade 2 spondylolisthesis Approved by: Jaron Garber M.D. on 12/26/2021 at 9:32
[2021-12-26] MEDS: SODIUM CHLORIDE 0.9% 1,000 ML 500 ML IV (09:05)
[2021-12-26 09:16] LABS: Add Manual Diff / Slide Review NO; Basophils Absolute Auto 0 /uL (0-100); Basophils Percent Auto 0.2 % (0-2); Eosinophils Absolute Auto 0 /uL (0-450); Hematocrit 45.1 % (41-53); Hemoglobin 14.8 g/dL (13.5-17.5); Lymphocytes Absolute Auto 1700 /uL (1100-4500); Lymphocytes Percent Auto 6.3 % (25-40); Mean Corpuscular HGB Conc 32.9 % (30-36); Mean Corpuscular Hemoglobin 29.8 PG (26-34); Mean Corpuscular Volume 90.6 fL (80-100); Monocytes Absolute Auto 1600 /uL (0-900); Neutrophils Absolute Auto 23200 /uL (1500-7000); Neutrophils Percent Auto 87.5 % (50-75); Platelet Count 233 X10^3/uL (150-400); Red Blood Cell Count 4.98 X10^6/uL (4.5-5.9); Red Cell Distribution Width 14.1 % (11.6-14.8); White Blood Cell Count 26.5 X10^3/uL (4.5-11.0)
[2021-12-26 09:21] LABS: INR 4.1 (0.9-1.3); Prothrombin Time 47.8 SECONDS (10.1-12.7)
[2021-12-26] MEDS: MORPHINE 2 MG/ML INJ IV ×4 (09:23→21:43)
[2021-12-26] MEDS: ONDANSETRON 4 MG/2 ML INJ IV ×2 (09:23→21:52)
[2021-12-26 09:24] LABS: PTT Partial Thromboplastin Tim 43 SECONDS (26.4-36.2)
[2021-12-26] MEDS: cefTRIAXone 1,000 MG in SODIUM CHLORIDE 0.9% 100 ML 200 ML IV (09:29)
[2021-12-26 09:30] LABS: Alanine Aminotransferase 39 IU/L (<50); Albumin 4.2 g/dL (3.5-5.0); Albumin Globulin Ratio 1.1 (1.0-2.8); Alkaline Phosphatase 60 U/L (38-126); Aspartate Aminotransferase 48 IU/L (17-59); Blood Urea Nitrogen 27 mg/dL (9-20); Calcium 9.9 mg/dL (8.4-10.2); Carbon Dioxide 23 mmol/L (22-32); Chloride 105 mmol/L (98-107); Creatine Kinase 100 U/L (55-170); Estimated Glomerular Filt Rate 48.2 mL/min (>60); Globulin 3.7 g/dL (1.7-4.1); Glucose 165 mg/dL (80-110); HEMOLYSIS < 15 (0-50); Lipase 26 U/L (23-300); Potassium 4.3 mmol/L (3.4-5.1); Sodium 138 mmol/L (137-145); Total Protein 7.9 g/dL (6.3-8.2)
[2021-12-26 09:31] LABS: Lactate (Lactic Acid) 2.4 mmol/L (0.7-2.1)
[2021-12-26 09:42] LABS: Troponin I < 0.012 ng/mL (0.01-0.034)
[2021-12-26 10:18] LABS: Procalcitonin 15.6 ng/mL (<0.5)
[2021-12-26 10:54] LABS: COVID19 - ADMIT (NP swab/PCR) Negative (Negative)
[2021-12-26 11:18] LABS: Reflexed Lactate in 2 Hours Y
[2021-12-26 13:58] LABS: Lactate 2HR (Lactic Acid Rflx) 1.9 mmol/L (0.7-2.1)
[2021-12-26] MEDS: PIPERACILLIN/TAZO 4.5 GM in SODIUM CHLORIDE 0.9% 100 ML 200 ML IV (14:38)
--- NOTE | 2021-12-26 16:35 | PC.NURSE ---
Pt arrived from ED A/O w/ HX of dementia, presenting in discomfort to the right abdominal quadrant. Lungs diminished at bases w/fine crackles noted, NS infusing into LFA at 100cc/hr via pump w/o incidence. Also has LAC SL Pt & oriented to room & call system. Bed alarm on for pt safety.
--- NOTE | 2021-12-26 18:22 | P.HP_ITS ---
History of Present Illness History of Present Illness Chief complaint: ill, not eating Narrative: 76yo male with a hx of hypertension, atrial fibrillation (on Xarelto), and Alzheimer's dementia that presents with RUQ abd pain. The patient is accompanied by his and educational recruiter, Mrs. Hawley. They live together in [place]. She reports that his abd pain began 3 nights ago. He's had decreased PO intake since then. She denies that he's had any n/v/d. She denies any fever/chills, night sweats, CP, SOB. She does endorse worsening confusion since this all began. She reports that the patient had an extensive tobacco smoking hx but quit in the . She denies that he's ever been formally diagnosed with COPD. She reports he used to drink EtOH heavily in the past, too, but has not done so in many years. She denies any illicit drug use. She is unable to provide his family's medical hx. She endorses minor surgeries of tendon release, rotator cuff repair, etc., in the past. She denies any hx of intraabdominal surgeries. Patient History Medical History Chicken pox Chronic back pain Dementia Fractures Hearing loss Measles Memory problem Vision disorder Surgical History Anesthesia History of carpal tunnel repair History of eye surgery (~04/26/14) History of hemorrhoidectomy History of rotator cuff surgery History of thumb surgery Pacemaker (~03/04/18) Status post hernia repair (~08/01/08) Status post LASIK surgery of both eyes Family & Social History Family History Father History of heart disease Mother Diabetes mellitus Brother History of heart disease Social History: household members spouse Prior Living Arrangements House Safety & Behavioral: Feels Safe in Current Yes Environment Been Physically Hurt or No Threatened By a Person Suicidal Ideation Description None Suicide Plan Description No Plan Tobacco & Substance use: Smoking Status Former smoker alcohol intake never alcohol intake frequency 0-2 drinks per day Substance Use Type does not use Meds Home Medications and Allergies Home Medications Medication Instructions Recorded Confirmed Type melatonin 3 mg capsule 3 mg PO BEDTIME PRN 10/27/19 12/26/21 History memantine 10 mg tablet (Namenda) 10 mg PO BID 10/27/19 12/26/21 History metoprolol tartrate 25 mg tablet 12.5 mg PO BID 06/26/20 12/26/21 History valacyclovir 500 mg tablet 500 mg PO DAILY #90 tab 08/23/21 12/26/21 Rx rivaroxaban 20 mg tablet (Xarelto) 20 mg PO DAILY 08/27/21 12/26/21 History ondansetron 4 mg disintegrating 4 mg PO Q6H PRN #14 tab 12/24/21 12/26/21 Rx tablet Allergies Allergy/AdvReac Type Severity Reaction Status Date / Time quinine Allergy Intermediate HIVES Verified 12/26/21 09:00 hydrocodone Allergy Mild REACTED Verified 12/26/21 16:14 PRETTY BAD TO IT. donepezil Allergy Unknown unknown Verified 12/26/21 09:00 galantamine Allergy Unknown unknown Verified 12/26/21 09:00 rivastigmine Allergy Unknown Redness of Verified 12/26/21 09:00 Skin Review of Systems Review of Systems Narrative: Unable to obtain from patient secondary to patient's Alzheimer's dementia. Exam Vital Signs (past 8 hours): - 12/26/21 10:30 12/26/21 10:31 12/26/21 10:45 Temperature Pulse Rate 78 79 81 Respiratory Rate 18 19 24 Blood Pressure 155/78 H Pulse Oximetry 93 95 93 12/26/21 11:00 12/26/21 11:15 12/26/21 11:30 Temperature Pulse Rate 80 80 74 Respiratory Rate 21 19 21 Blood Pressure 154/95 H 164/116 H Pulse Oximetry 96 97 12/26/21 11:45 12/26/21 12:00 12/26/21 12:01 Temperature Pulse Rate 74 75 75 Respiratory Rate 21 20 23 Blood Pressure 167/70 H Pulse Oximetry 96 95 95 12/26/21 12:15 12/26/21 12:30 12/26/21 12:32 Temperature Pulse Rate 78 79 80 Respiratory Rate 22 21 21 Blood Pressure 172/87 H Pulse Oximetry 97 94 95 12/26/21 12:45 12/26/21 13:00 12/26/21 13:01 Temperature Pulse Rate 78 81 82 Respiratory Rate 24 27 H 30 H Blood Pressure 150/71 H Pulse Oximetry 96 95 96 12/26/21 13:15 12/26/21 13:55 12/26/21 18:03 Temperature 98.1 F Pulse Rate 83 Respiratory Rate 35 H Blood Pressure Pulse Oximetry 95 95 Oxygen Delivery Method Room Air Const Other: Patient laying in bed comfortably upon my entering the room, in no apparent acute distress. Eyes Other: No scleral icterus appreciated. Resp Other: Lungs clear to auscultation bilaterally. Cardio Other: RRR. S1 and S2 heart sounds normal, with no extra heart sounds or murmurs appreciated. No peripheral edema noted. GI Other: Soft, non-distended, tender to RUQ. Bowel sounds heard. Skin Other: No grossly abnormal skin lesions appreciated. Neuro Other: Oriented to person, but not time and place. Objective Labs Result Diagrams: 12/26/21 08:57 12/26/21 08:58 Labs: Laboratory Results - last 24 hr 12/26/21 12/26/21 12/26/21 08:57 08:58 08:58 WBC 26.5 H D RBC 4.98 Hgb 14.8 Hct 45.1 MCV 90.6 MCH 29.8 MCHC 32.9 RDW 14.1 Plt Count 233 Neut % (Auto) 87.5 H Lymph % (Auto) 6.3 L [place] % (Auto) 6.0 Eos % (Auto) 0.0 L Baso % (Auto) 0.2 Neut # (Auto) 79417 H Lymph # (Auto) 1700 [place] # (Auto) 1600 H Eos # (Auto) 0 Baso # (Auto) 0 PT 47.8 H INR 4.1 H APTT 43 H Sodium 138 Potassium 4.3 Chloride 105 Carbon Dioxide 23 BUN 27 H Creatinine 1.42 H Estimated GFR 48.2 L BUN/Creatinine Ratio 19.0 Glucose 165 H Lactate Calcium 9.9 Total Bilirubin 2.0 H AST 48 ALT 39 Alkaline Phosphatase 60 Total Creatine Kinase 100 CK-MB (CK-2) TNP CK-MB (CK-2) Rel Index TNP Troponin I < 0.012 Total Protein 7.9 Albumin 4.2 Globulin 3.7 Albumin/Globulin Ratio 1.1 Lipase 26 D Procalcitonin SARS-CoV-2 (PCR) 12/26/21 12/26/21 12/26/21 08:58 08:58 09:35 WBC RBC Hgb Hct MCV MCH MCHC RDW Plt Count Neut % (Auto) Lymph % (Auto) [place] % (Auto) Eos % (Auto) Baso % (Auto) Neut # (Auto) Lymph # (Auto) [place] # (Auto) Eos # (Auto) Baso # (Auto) PT INR APTT Sodium Potassium Chloride Carbon Dioxide BUN Creatinine Estimated GFR BUN/Creatinine Ratio Glucose Lactate 2.4 H Calcium Total Bilirubin AST ALT Alkaline Phosphatase Total Creatine Kinase CK-MB (CK-2) CK-MB (CK-2) Rel Index Troponin I Total Protein Albumin Globulin Albumin/Globulin Ratio Lipase Procalcitonin 15.6 H SARS-CoV-2 (PCR) Negative 12/26/21 13:22 WBC RBC Hgb Hct MCV MCH MCHC RDW Plt Count Neut % (Auto) Lymph % (Auto) [place] % (Auto) Eos % (Auto) Baso % (Auto) Neut # (Auto) Lymph # (Auto) [place] # (Auto) Eos # (Auto) Baso # (Auto) PT INR APTT Sodium Potassium Chloride Carbon Dioxide BUN Creatinine Estimated GFR BUN/Creatinine Ratio Glucose Lactate 1.9 Calcium Total Bilirubin AST ALT Alkaline Phosphatase Total Creatine Kinase CK-MB (CK-2) CK-MB (CK-2) Rel Index Troponin I Total Protein Albumin Globulin Albumin/Globulin Ratio Lipase Procalcitonin SARS-CoV-2 (PCR) Assessment & Plan Assessment & Plan narrative: Assessment: 1. Acute cholecystitis 2. Atrial fibrillation on Xarelto 3. Elevated INR, without active bleeding 4. Advanced Alzheimer's dementia 5. Hx of aphthous ulcers, not active currently Plan: 1. As evidenced both clinically and on imaging. IV Zosyn on-board (started on Dec 26). Appreciate general surgery consult recommendations regarding cholecystectomy, etc. 2. Will hold Xarelto for now, pending general surgery recommendations. 3. Likely due to vitamin K deficiency, that is likely nutrition-related. Will give one-time IV vitamin K 5 mg, and trend INR's. 4. Patient's states he was formally diagnosed in 2017. Will continue home memantine 10 mg bid. 5. Pt's reports ocassional canker sores on his lips for which patient take Valtrex. Denies that this is an active issue now. VTE prophylaxis: Will hold home Xarelto pending general surgery recommendations Code: Full I have utilized all available immediate resources to obtain, update, or review the patient's current medications. I confirm the patient's advance care plan is present, code status is documented, surrogate decision maker is in patient's record. Time Spent With Patient Critical Care time: I spent a total of [] minutes of critical care time on this patient's care today; this time is exclusive of procedural time. Quality VTE Deep Vein Thrombosis/Pulmonary Embolism Present on Admission: No MIPS - Admit I confirm the patient?s Advance Care Plan is present, Code status is documented, Surrogate decision maker is in patient?s record [If Yes, STOP here]: Yes
--- NOTE | 2021-12-26 18:50 | PM.CN ---
History of Present Illness Consult details Date Patient Seen: 12/26/21 Time Patient Seen: 18:50 Chief complaint: ill, not eating Narrative: Nitesh is a 76-year-old man with Alzheimer's dementia who was brought in for abdominal pain and failure to thrive. He was found to have acute cholecystitis on a CT scan today. He takes Xarelto for atrial fibrillation and his last dose was last night. He does not take Coumadin. His INR was noted to be 4.1 today. He has a pacemaker for bradycardia. Meds Home Medications and Allergies Home Medications Medication Instructions Recorded Confirmed Type melatonin 3 mg capsule 3 mg PO BEDTIME PRN 10/27/19 12/26/21 History memantine 10 mg tablet (Namenda) 10 mg PO BID 10/27/19 12/26/21 History metoprolol tartrate 25 mg tablet 12.5 mg PO BID 06/26/20 12/26/21 History valacyclovir 500 mg tablet 500 mg PO DAILY #90 tab 08/23/21 12/26/21 Rx rivaroxaban 20 mg tablet (Xarelto) 20 mg PO DAILY 08/27/21 12/26/21 History ondansetron 4 mg disintegrating 4 mg PO Q6H PRN #14 tab 12/24/21 12/26/21 Rx tablet Allergies Allergy/AdvReac Type Severity Reaction Status Date / Time quinine Allergy Intermediate HIVES Verified 12/26/21 09:00 hydrocodone Allergy Mild REACTED Verified 12/26/21 16:14 PRETTY BAD TO IT. donepezil Allergy Unknown unknown Verified 12/26/21 09:00 galantamine Allergy Unknown unknown Verified 12/26/21 09:00 rivastigmine Allergy Unknown Redness of Verified 12/26/21 09:00 Skin Exam Vital Signs (past 8 hours): - 12/26/21 11:00 12/26/21 11:15 12/26/21 11:30 Temperature Pulse Rate 80 80 74 Respiratory Rate 21 19 21 Blood Pressure 154/95 H 164/116 H Pulse Oximetry 96 97 12/26/21 11:45 12/26/21 12:00 12/26/21 12:01 Temperature Pulse Rate 74 75 75 Respiratory Rate 21 20 23 Blood Pressure 167/70 H Pulse Oximetry 96 95 95 12/26/21 12:15 12/26/21 12:30 12/26/21 12:32 Temperature Pulse Rate 78 79 80 Respiratory Rate 22 21 21 Blood Pressure 172/87 H Pulse Oximetry 97 94 95 12/26/21 12:45 12/26/21 13:00 12/26/21 13:01 Temperature Pulse Rate 78 81 82 Respiratory Rate 24 27 H 30 H Blood Pressure 150/71 H Pulse Oximetry 96 95 96 12/26/21 13:15 12/26/21 13:55 12/26/21 18:03 Temperature 98.1 F Pulse Rate 83 Respiratory Rate 35 H Blood Pressure Pulse Oximetry 95 95 Oxygen Delivery Method Room Air Const Orientation: confused Resp Effort & Inspection: normal respiratory effort GI Other: Tender, palpable mass in the right upper quadrant with a positive Fernández sign Objective Labs Result Diagrams: 12/26/21 08:57 12/26/21 08:58 Labs: Laboratory Results - last 24 hr 12/26/21 12/26/21 12/26/21 08:57 08:58 08:58 WBC 26.5 H D RBC 4.98 Hgb 14.8 Hct 45.1 MCV 90.6 MCH 29.8 MCHC 32.9 RDW 14.1 Plt Count 233 Neut % (Auto) 87.5 H Lymph % (Auto) 6.3 L [place] % (Auto) 6.0 Eos % (Auto) 0.0 L Baso % (Auto) 0.2 Neut # (Auto) 86236 H Lymph # (Auto) 1700 [place] # (Auto) 1600 H Eos # (Auto) 0 Baso # (Auto) 0 PT 47.8 H INR 4.1 H APTT 43 H Sodium 138 Potassium 4.3 Chloride 105 Carbon Dioxide 23 BUN 27 H Creatinine 1.42 H Estimated GFR 48.2 L BUN/Creatinine Ratio 19.0 Glucose 165 H Lactate Calcium 9.9 Total Bilirubin 2.0 H AST 48 ALT 39 Alkaline Phosphatase 60 Total Creatine Kinase 100 CK-MB (CK-2) TNP CK-MB (CK-2) Rel Index TNP Troponin I < 0.012 Total Protein 7.9 Albumin 4.2 Globulin 3.7 Albumin/Globulin Ratio 1.1 Lipase 26 D Procalcitonin SARS-CoV-2 (PCR) 12/26/21 12/26/21 12/26/21 08:58 08:58 09:35 WBC RBC Hgb Hct MCV MCH MCHC RDW Plt Count Neut % (Auto) Lymph % (Auto) [place] % (Auto) Eos % (Auto) Baso % (Auto) Neut # (Auto) Lymph # (Auto) [place] # (Auto) Eos # (Auto) Baso # (Auto) PT INR APTT Sodium Potassium Chloride Carbon Dioxide BUN Creatinine Estimated GFR BUN/Creatinine Ratio Glucose Lactate 2.4 H Calcium Total Bilirubin AST ALT Alkaline Phosphatase Total Creatine Kinase CK-MB (CK-2) CK-MB (CK-2) Rel Index Troponin I Total Protein Albumin Globulin Albumin/Globulin Ratio Lipase Procalcitonin 15.6 H SARS-CoV-2 (PCR) Negative 12/26/21 13:22 WBC RBC Hgb Hct MCV MCH MCHC RDW Plt Count Neut % (Auto) Lymph % (Auto) [place] % (Auto) Eos % (Auto) Baso % (Auto) Neut # (Auto) Lymph # (Auto) [place] # (Auto) Eos # (Auto) Baso # (Auto) PT INR APTT Sodium Potassium Chloride Carbon Dioxide BUN Creatinine Estimated GFR BUN/Creatinine Ratio Glucose Lactate 1.9 Calcium Total Bilirubin AST ALT Alkaline Phosphatase Total Creatine Kinase CK-MB (CK-2) CK-MB (CK-2) Rel Index Troponin I Total Protein Albumin Globulin Albumin/Globulin Ratio Lipase Procalcitonin SARS-CoV-2 (PCR) [facility] Medical History Chicken pox Chronic back pain Dementia Fractures Hearing loss Measles Memory problem Vision disorder Surgical History Anesthesia History of carpal tunnel repair History of eye surgery (~04/26/14) History of hemorrhoidectomy History of rotator cuff surgery History of thumb surgery Pacemaker (~03/04/18) Status post hernia repair (~08/01/08) Status post LASIK surgery of both eyes Family History Father History of heart disease Mother Diabetes mellitus Brother History of heart disease Social History marital status: household members: spouse Tobacco & Substance Use Smoking Status: Former smoker alcohol intake: never Assessment & Plan Assessment and plan (1) Acute cholecystitis: Status: Acute Plan To the OR with either Dr. Alfredo or me for a laparoscopic cholecystectomy as early as tomorrow afternoon. We will need to have his INR brought into normal range with either vitamin K or plasma or both. Hold off on any further anticoagulation until postoperative. I discussed the risks and benefits of the surgery with his . Time Spent With Patient Critical Care time: I spent a total of [] minutes of critical care time on this patient's care today; this time is exclusive of procedural time.
[2021-12-26] MEDS: PHYTONADIONE (VIT K1) 5 MG in SODIUM CHLORIDE 0.9% 100 ML 201 ML IV (18:58)
[2021-12-26] MEDS: PIPERACILLIN/TAZO 3.375 GM in SODIUM CHLORIDE 0.9% 100 ML 25 ML IV (19:38)
[2021-12-26] MEDS: MEMANTINE HCL 5 MG TABLET 10 MG PO (21:43)
[2021-12-26] MEDS: MELATONIN 3 MG TABLET PO (21:43)
[2021-12-26] MEDS: METOPROLOL IR 25 MG TABLET 12.5 MG PO (21:43)
[2021-12-26 21:57] LABS: Add Manual Diff / Slide Review NO; Basophils Absolute Auto 0 /uL (0-100); Basophils Percent Auto 0.1 % (0-2); Eosinophils Absolute Auto 0 /uL (0-450); Hematocrit 39.9 % (41-53); Hemoglobin 13.3 g/dL (13.5-17.5); Lymphocytes Absolute Auto 1200 /uL (1100-4500); Lymphocytes Percent Auto 5.5 % (25-40); Mean Corpuscular HGB Conc 33.3 % (30-36); Mean Corpuscular Hemoglobin 30.1 PG (26-34); Mean Corpuscular Volume 90.4 fL (80-100); Monocytes Absolute Auto 1400 /uL (0-900); Monocytes Percent Auto 6.3 % (3-14); Neutrophils Absolute Auto 19000 /uL (1500-7000); Neutrophils Percent Auto 88.1 % (50-75); Platelet Count 209 X10^3/uL (150-400); Red Blood Cell Count 4.42 X10^6/uL (4.5-5.9); Red Cell Distribution Width 14.1 % (11.6-14.8); White Blood Cell Count 21.5 X10^3/uL (4.5-11.0)
[2021-12-26 22:01] LABS: INR 2.2 (0.9-1.3); Prothrombin Time 25.4 SECONDS (10.1-12.7)
[2021-12-27] VITALS (23 sets, daily range): BP systolic 131–163; BP diastolic 70–102; PULSE 66–92; RESP 14–18; TEMP 36.1–37.2; O2SAT 95–100; BMI 27.5
--- NOTE | 2021-12-27 | PATH_ITS ---
[facility] Accession Number: [id number] No. of containers..01 Tissue . 01 Material submitted: . gallbladder - GALLBLADDER . 02 Diagnosis: Gallbladder, Cholecystectomy: Acute suppurative cholecystitis with necrosis, marked edema, and serositis. Negative for dysplasia or malignancy. [facility] 01/15/2022 0944 Local . 02 Comment: As part of routine quality tester, this case was also reviewed by Drs. Reed and Vivian, who agree with the interpretation. . 02 Electronically signed: . Kerri Yost MD, Pathologist NPI- [id number] . 01 Gross description: . Received in formalin, labeled with the patient's name and gallbladder is an 11.0 x 5.0 x 3.5 cm previously disrupted gallbladder, open at cystic duct margin, margin inked blue, with cystic duct patient. A 1.5 x 1.5 x 1.0 cm yellow-anderson crystalline calculus is present within. The gallbladder mucosa is green, velvety, with patchy exudate, with wall thickness up to 0.8 cm. Tinsmith Helper sections submitted. . Summary of Sections: A1. Gallbladder, cystic duct margin, five pieces. A2. Gallbladder, four pieces. ([id number]) /MRV 01/01/2022 1307 Local . 02 Pathologist provided ICD-10: K81.1 . 02 CPT . 263002 Specimen Comment: A courtesy copy of this report has been sent to [facility] Performed at: 01 [facility] [address] [facility], [place], [place] [id number] MD Maxime Benoit MD Phone: [phone] Performed at: 02 [facility] [id number] [place] [id number] MD Jessica Reed MD Phone: [phone]
[2021-12-27] MEDS: MORPHINE 2 MG/ML INJ IV ×5 (00:16→20:58)
[2021-12-27] MEDS: PIPERACILLIN/TAZO 3.375 GM in SODIUM CHLORIDE 0.9% 100 ML 25 ML IV ×3 (02:18→17:36)
[2021-12-27 06:53] LABS: INR 1.7 (0.9-1.3)
[2021-12-27 06:59] LABS: Alanine Aminotransferase 37 IU/L (<50); Albumin 3.5 g/dL (3.5-5.0); Alkaline Phosphatase 53 U/L (38-126); Aspartate Aminotransferase 41 IU/L (17-59); BUN Creatinine Ratio 22.9 (6-22); Bilirubin Total 1.2 mg/dL (0.2-1.3); Blood Urea Nitrogen 27 mg/dL (9-20); Calcium 9.4 mg/dL (8.4-10.2); Carbon Dioxide 24 mmol/L (22-32); Chloride 110 mmol/L (98-107); Estimated Glomerular Filt Rate 59.7 mL/min (>60); Globulin 3.5 g/dL (1.7-4.1); Glucose 131 mg/dL (80-110); HEMOLYSIS < 15 (0-50); Potassium 4.2 mmol/L (3.4-5.1); Sodium 138 mmol/L (137-145)
[2021-12-27] MEDS: MEMANTINE HCL 5 MG TABLET 10 MG PO ×2 (08:24→21:00)
[2021-12-27] MEDS: METOPROLOL IR 25 MG TABLET 12.5 MG PO ×2 (08:24→21:00)
--- NOTE | 2021-12-27 08:44 | P.PN_ITS ---
Subjective Subjective Interval history: Patient's reports that there were no changes overnight. The patient is awake and alert but has difficulty with the interview secondary to his dementia. The patient's is aware that surgery is planning for cholecystectomy today. Exam Vital Signs (past 8 hours): - 12/27/21 02:02 12/27/21 02:03 12/27/21 06:00 Temperature 97.7 F Pulse Oximetry 95 95 95 Oxygen Delivery Method Room Air Oxygen Flow Rate 0 Narrative Exam Narrative: Const Other: Patient laying in bed comfortably upon my entering the room, in no apparent acute distress. Eyes Other: No scleral icterus appreciated. Resp Other: Lungs clear to auscultation bilaterally. Cardio Other: RRR. S1 and S2 heart sounds normal, with no extra heart sounds or murmurs appreciated. No peripheral edema noted. GI Other: Soft, non-distended, tender to RUQ. Bowel sounds heard. Skin Other: No grossly abnormal skin lesions appreciated. Neuro Other: Oriented to person, but not time and place. Objective Labs Result Diagrams: 12/26/21 21:47 12/27/21 06:30 Labs: Laboratory Results - last 24 hr 12/26/21 12/26/21 12/26/21 08:57 08:58 08:58 WBC 26.5 H D RBC 4.98 Hgb 14.8 Hct 45.1 MCV 90.6 MCH 29.8 MCHC 32.9 RDW 14.1 Plt Count 233 Neut % (Auto) 87.5 H Lymph % (Auto) 6.3 L [place] % (Auto) 6.0 Eos % (Auto) 0.0 L Baso % (Auto) 0.2 Neut # (Auto) 38644 H Lymph # (Auto) 1700 [place] # (Auto) 1600 H Eos # (Auto) 0 Baso # (Auto) 0 PT 47.8 H INR 4.1 H APTT 43 H Sodium 138 Potassium 4.3 Chloride 105 Carbon Dioxide 23 BUN 27 H Creatinine 1.42 H Estimated GFR 48.2 L BUN/Creatinine Ratio 19.0 Glucose 165 H Lactate Calcium 9.9 Magnesium Total Bilirubin 2.0 H AST 48 ALT 39 Alkaline Phosphatase 60 Total Creatine Kinase 100 CK-MB (CK-2) TNP CK-MB (CK-2) Rel Index TNP Troponin I < 0.012 Total Protein 7.9 Albumin 4.2 Globulin 3.7 Albumin/Globulin Ratio 1.1 Lipase 26 D Procalcitonin SARS-CoV-2 (PCR) 12/26/21 12/26/21 12/26/21 08:58 08:58 09:35 WBC RBC Hgb Hct MCV MCH MCHC RDW Plt Count Neut % (Auto) Lymph % (Auto) [place] % (Auto) Eos % (Auto) Baso % (Auto) Neut # (Auto) Lymph # (Auto) [place] # (Auto) Eos # (Auto) Baso # (Auto) PT INR APTT Sodium Potassium Chloride Carbon Dioxide BUN Creatinine Estimated GFR BUN/Creatinine Ratio Glucose Lactate 2.4 H Calcium Magnesium Total Bilirubin AST ALT Alkaline Phosphatase Total Creatine Kinase CK-MB (CK-2) CK-MB (CK-2) Rel Index Troponin I Total Protein Albumin Globulin Albumin/Globulin Ratio Lipase Procalcitonin 15.6 H SARS-CoV-2 (PCR) Negative 12/26/21 12/26/21 12/26/21 13:22 21:47 21:47 WBC 21.5 H RBC 4.42 L Hgb 13.3 L Hct 39.9 L MCV 90.4 MCH 30.1 MCHC 33.3 RDW 14.1 Plt Count 209 Neut % (Auto) 88.1 H Lymph % (Auto) 5.5 L [place] % (Auto) 6.3 Eos % (Auto) 0.0 L Baso % (Auto) 0.1 Neut # (Auto) 12146 H Lymph # (Auto) 1200 [place] # (Auto) 1400 H Eos # (Auto) 0 Baso # (Auto) 0 PT 25.4 H D INR 2.2 H APTT Sodium Potassium Chloride Carbon Dioxide BUN Creatinine Estimated GFR BUN/Creatinine Ratio Glucose Lactate 1.9 Calcium Magnesium Total Bilirubin AST ALT Alkaline Phosphatase Total Creatine Kinase CK-MB (CK-2) CK-MB (CK-2) Rel Index Troponin I Total Protein Albumin Globulin Albumin/Globulin Ratio Lipase Procalcitonin SARS-CoV-2 (PCR) 12/27/21 12/27/21 06:30 06:30 WBC RBC Hgb Hct MCV MCH MCHC RDW Plt Count Neut % (Auto) Lymph % (Auto) [place] % (Auto) Eos % (Auto) Baso % (Auto) Neut # (Auto) Lymph # (Auto) [place] # (Auto) Eos # (Auto) Baso # (Auto) PT 19.0 H D INR 1.7 H APTT Sodium 138 Potassium 4.2 Chloride 110 H Carbon Dioxide 24 BUN 27 H Creatinine 1.18 Estimated GFR 59.7 L BUN/Creatinine Ratio 22.9 H Glucose 131 H Lactate Calcium 9.4 Magnesium 2.0 Total Bilirubin 1.2 AST 41 ALT 37 Alkaline Phosphatase 53 Total Creatine Kinase CK-MB (CK-2) CK-MB (CK-2) Rel Index Troponin I Total Protein 7.0 Albumin 3.5 Globulin 3.5 Albumin/Globulin Ratio 1.0 Lipase Procalcitonin SARS-CoV-2 (PCR) [facility] Medical History Chicken pox Chronic back pain Dementia Fractures Hearing loss Measles Memory problem Vision disorder Surgical History Anesthesia History of carpal tunnel repair History of eye surgery (~04/26/14) History of hemorrhoidectomy History of rotator cuff surgery History of thumb surgery Pacemaker (~03/04/18) Status post hernia repair (~08/01/08) Status post LASIK surgery of both eyes Family History Father History of heart disease Mother Diabetes mellitus Brother History of heart disease Social History marital status: household members: spouse Smoking Status: Former smoker alcohol intake: never Assessment & Plan Assessment & Plan narrative: Assessment: 1. Acute cholecystitis 2. Atrial fibrillation on Xarelto 3. Elevated INR, without active bleeding 4. Advanced Alzheimer's dementia 5. Hx of aphthous ulcers, not active currently Plan: 1. As evidenced both clinically and on imaging. IV Zosyn on-board (started on Dec 26). Appreciate general surgery consult recommendations regarding cholecystectomy, etc. 2. Will hold Xarelto for now, pending general surgery recommendations. 3. Likely due to vitamin K deficiency, that is likely nutrition-related. IV vitamin K 5 mg given one-time on Dec 26. INR's trending down. 4. Patient's states he was formally diagnosed in 2017. Will continue home memantine 10 mg bid. 5. Pt's reports ocassional canker sores on his lips for which patient take Valtrex. Denies that this is an active issue now. VTE prophylaxis: Will hold home Xarelto for now Time Spent With Patient Critical Care time: I spent a total of [] minutes of critical care time on this patient's care today; this time is exclusive of procedural time. Quality VTE Deep Vein Thrombosis/Pulmonary Embolism Present on Admission: No
[2021-12-27] MEDS: SODIUM CHLORIDE 0.9% FLUSH 10 ML IV (09:48)
[2021-12-27 11:38] LABS: INR 1.6 (0.9-1.3); Prothrombin Time 18.3 SECONDS (10.1-12.7)
--- NOTE | 2021-12-27 11:56 | PC.NURSE ---
1147: Patient off floor to surgery with RN, at bedside. Notified OR nurse regarding new order of Vitamin K ordered by hospitalist, INR 1.6.
[2021-12-27] MEDS: PHYTONADIONE (VIT K1) 5 MG in SODIUM CHLORIDE 0.9% 100 ML 201 ML IV (12:05)
--- NOTE | 2021-12-27 12:12 | PM.PREOP ---
Pre-operative Note COVID-19 Criteria for continued procedure: Expected advancement of disease process Interval Note History & Physical reviewed/Exam performed by Physician: Yes Changes to H&P: No
[2021-12-27] MEDS: LACTATED RINGERS 1,000 ML 84 ML IV (12:22)
--- NOTE | 2021-12-27 13:31 | SUR.OPER ---
Supine on padded OR bed, head on pillow, safety belt at thigh, bilateral arms on padded arm boards, with less than 90 degree abduction. Legs uncrossed. Padded footboard in place. Tape over blanket to secure lower legs. Gel pad under bilateral heels. Gel pad between urinary catheter tubing and patient's posterior thigh.
--- NOTE | 2021-12-27 13:36 | CM.DANOTE ---
Patient is a 76 yo male who was admitted on 12/26/21 for Ill/not eating. Pt has MCR and LIFE and his PCP is Dr. Jared Wu. EMR was reviewed. Per MD, pt with cholecystitis and to have [facility] when INR therapeutic. Per MD, pt has advanced dementia and not a reliable historian and spouse is bedside and pt's DPOA and provides pt's historical information. SW attempted to meet bedside with pt and spouse but per RN pt was just taken off the floor to surgery and spouse went with pt and not currently available and did not answer her phone. Plan: SW to follow closely for bedside assessment with spouse (due to pt's dementia) after pt returns to the floor from [facility] towards determining d/c planning needs. KIET Hein Discharge Planning/Care Management CM Discharge Assessment Start: 12/27/21 13:33 Freq: Status: Active Protocol: Document 12/27/21 13:33 BF (Rec: 12/27/21 13:36 BF [id number]) Discharge Planning Assessment Assigned Director Integrated KIET Bearden DPOA/Assigned Designee Name Spouse Linette Contact Information [phone] Advance Directives? Yes: Living Will Advance Directives on File No History Provided By Family Member,Significant Other,Medical Record Has Patient been admitted in last 30 No days? Prior Living Arrangements House Household Members spouse Type of transporation used prior to Relies on Others admit Independent with ADL's No Is patient alert and oriented? No: advanced dementia Needs Assistance With Meal Prep,Managing Medications ,Home Chores / Shopping Caregiver for Another No Comment Waiting post Lap [facility]e to determine needs Barriers to Discharge No Discharge Plan Home with Home Health Transportation Arrangement Spouse has been bedside and rooming in Additional Comment Waiting for pt's progress to determine needs, off floor in surgery Review Status In Process Please Provide Date Initial DC 12/27/21 Assessment Was Performed Next Review Type Continued Stay Review
[2021-12-27] MEDS: BUPIVACAINE 0.25% (PF) VIAL 30 ML INJ (13:55)
--- NOTE | 2021-12-27 14:44 | PM.OP.1 ---
Operative Date/Time/Diagnoses Date of procedure: 12/27/21 Time of procedure: 14:45 Pre-op diagnosis: acute cholecystitis Post-op diagnosis: same Procedure & Clinicians Procedure: open cholecystectomy Same procedure as scheduled: Yes Indications: 76-year-old man with several weeks of abdominal pain found to have acute cholecystitis. Surgeon: Jalen Alfredo Click Yes if Unassisted: Yes Anesthesia Type: General Operative Notes Findings: Gangrenous cholecystitis Specimen(s): other (Gallbladder) Estimated Blood Loss (mL): 100 Procedure in detail: Patient was brought to the operating room placed supine on the table. Bilateral lower extremity compression devices were applied. General anesthesia was induced patient was intubated with a endotracheal tube. He received antibiotics prior to skin incision. Goldberg catheter was sterilely placed. Patient was prepped and draped in the sterile fashion. Time-out was performed. A right subcostal incision was made the fascia was elevated and sharply incised the abdomen was entered atraumatically. A 12 mm baloon trocar was inserted, inspection of the abdomen was made. There was a massive rind of necrotic material within the right upper quadrant the gallbladder could not be visualized. A right subcostal incision was made. The fascia was incised. The muscle was then divided with LigaSure posterior sheath was incised the abdomen was entered. The Bookwalter was then placed to assist with retraction. The gallbladder was gangrenous with necrosis, it was approach from top down fashion. The gallbladder was dissected off of the liver bed using electric cautery. The hepatocystic triangle was skeltonized with careful blunt dissection. The cystic duct and artery were identified entering into the gallbladder. The artery was divided after placing 10 mm Weck hemoclips 2 below stay side and 1 on the specimen side. The artery had likely thrombosed there was no evidence of bleeding when it was transected. The cystic duct was then divided in a similar fashion. Gallbladder was then removed and passed off the field as specimen. Nineteen Lithuanian Parviz drain was then placed into the gallbladder fossa brought out through the right side of the abdominal wall. The abdomen was then irrigated with as several L of sterile saline. The posterior sheath was then closed in running fashion using 1. PDS suture. The anterior sheath was then closed in similar fashion. Subcutaneous tissue was reapproximated using 2-0 Vicryl skin closed with pankaj. Fascia at the umbilical port site was then closed with Vicryl suture followed by pankaj. Patient tolerated the operation well was transferred to recovery room in stable condition. Complications: none Post-operative Condition: stable Disposition: Acute Care
[2021-12-28] VITALS (11 sets, daily range): BP systolic 141–174; BP diastolic 61–88; PULSE 67–82; RESP 16–20; TEMP 36.6–38.1; O2SAT 93–97
[2021-12-28] MEDS: MORPHINE 2 MG/ML INJ IV ×4 (00:32→21:27)
[2021-12-28] MEDS: SODIUM CHLORIDE 0.9% FLUSH 10 ML IV ×3 (00:34→20:41)
--- NOTE | 2021-12-28 05:15 | PC.NURSE ---
s/p gallbladder removal:tolerating clears, accepted applesauce and 120cc h2o. BTP controlled thru the NOC w/ PRN morphine 2mg IVP. s/sx of BTP: pulling at tubes, lines, clothing. settles down significantly after MS 2mg. dressing to abd shows spotted shadow drainage. ELLE drain: approx 120cc payton colored drainage. call to Dr Alfredo thru the NOC to inquire about IVF continuance, new order received to continue LR at 84/hour. turned and repositioned frequently thru the NOC.
[2021-12-28 05:42] LABS: Add Manual Diff / Slide Review NO; Basophils Absolute Auto 0 /uL (0-100); Basophils Percent Auto 0.3 % (0-2); Eosinophils Absolute Auto 0 /uL (0-450); Eosinophils Percent Auto 0.4 % (2-4); Hematocrit 34.8 % (41-53); Hemoglobin 11.5 g/dL (13.5-17.5); Lymphocytes Absolute Auto 1300 /uL (1100-4500); Lymphocytes Percent Auto 11.1 % (25-40); Mean Corpuscular HGB Conc 33.1 % (30-36); Mean Corpuscular Hemoglobin 30.2 PG (26-34); Mean Corpuscular Volume 91.2 fL (80-100); Monocytes Absolute Auto 900 /uL (0-900); Monocytes Percent Auto 7.5 % (3-14); Neutrophils Absolute Auto 9800 /uL (1500-7000); Neutrophils Percent Auto 80.7 % (50-75); Platelet Count 220 X10^3/uL (150-400); Red Blood Cell Count 3.82 X10^6/uL (4.5-5.9); Red Cell Distribution Width 14.4 % (11.6-14.8); White Blood Cell Count 12.2 X10^3/uL (4.5-11.0)
[2021-12-28 05:50] LABS: Alanine Aminotransferase 93 IU/L (<50); Albumin 3.1 g/dL (3.5-5.0); Alkaline Phosphatase 55 U/L (38-126); Aspartate Aminotransferase 104 IU/L (17-59); BUN Creatinine Ratio 26.5 (6-22); Bilirubin Total 0.9 mg/dL (0.2-1.3); Blood Urea Nitrogen 26 mg/dL (9-20); Calcium 8.9 mg/dL (8.4-10.2); Carbon Dioxide 27 mmol/L (22-32); Chloride 109 mmol/L (98-107); Estimated Glomerular Filt Rate > 60.0 mL/min (>60); Globulin 3.2 g/dL (1.7-4.1); Glucose 126 mg/dL (80-110); HEMOLYSIS < 15 (0-50); Magnesium 2.2 mg/dL (1.6-2.3); Sodium 139 mmol/L (137-145); Total Protein 6.3 g/dL (6.3-8.2)
[2021-12-28] MEDS: PIPERACILLIN/TAZO 3.375 GM in SODIUM CHLORIDE 0.9% 100 ML 25 ML IV ×3 (06:29→19:08)
[2021-12-28] MEDS: LACTATED RINGERS 1,000 ML 84 ML IV (06:29)
[2021-12-28] MEDS: MEMANTINE HCL 5 MG TABLET 10 MG PO ×2 (08:39→20:28)
[2021-12-28] MEDS: METOPROLOL IR 25 MG TABLET 12.5 MG PO ×2 (08:39→20:28)
--- NOTE | 2021-12-28 11:19 | OT.IPNOTE ---
Attempted to wake pt up and unable to arouse. Nursing states just gave him morphine earlier. TO check on pt tomorrow for OT amy. Able to get prior level of care from his .
--- NOTE | 2021-12-28 12:14 | CM.DPNOTE ---
DCP Note Spoke w/spouse Linette, introduced role. Spouse explains that she has been managing at home, caring for spouse (Dx w/Alz dementia in 2016) but it does get stressful. Spouse ambulates w/o AD, steady on feet, needs redirecting when forgetful. Patient has not displayed any paranoia, agitation or wandering. PT/OT ordered today as spouse states she is nervous about taking patient home; states he seems to have a low pain tolerance. This RN EMERGENCY ROOM explained that patient would likely be DC either today or tomorrow, according to Dr Dempsey, and that this RN EMERGENCY ROOM would try to equip patient/spouse w/as many helpful resources as possible, spouse appreciative. Further explained that patient was not a good candidate for SNF rehab d/t his dementia. Strongly encouraged spouse to consider hiring private care givers [facility], as patient's needs will likely begin to outweigh spouse's abilities to keep patient safe at home. Patient/spouse's adult dtr Brit lives in an RV on their property, spouse states she has a bad back and helps when she is able Provided Senior Resource Guide and reviewed long term care administrator care options ie in home cg vs facility placement (including memory care respite). Spouse attends Alz support groups when she is able and states she has already connected with [facility]. Spouse agreeable to HH for patient if it is recommended. No agency preference Plan: DC is expected w.in 24 hrs, likely home w/spouse, r/o need for HH upon DC, after PT/OT amy Lanza RN EMERGENCY ROOM
--- NOTE | 2021-12-28 12:50 | PT.IIE ---
Current Diagnoses Acute cholecystitis (12/26/21) Surgery Performed Operation Date: 12/27/21 12:00 Actual Procedures p Laparoscopic Cholecystectomy(Not Applicable) - Jalen Alfredo MD Surgical History (Last Reviewed 12/24/21 @ 09:08 by Nisha Brewer MD) Anesthesia History of carpal tunnel repair Pacemaker (~03/04/18) Status post hernia repair (~08/01/08) Medical History (Last Reviewed 12/26/21 @ 09:02 by Tree Luther DO) Chicken pox Chronic back pain Dementia Fractures Hearing loss Measles Memory problem Vision disorder Physical Therapy Inpatient Evaluation/Re-Eval M1 PT/OT-IP Prior Functional Status Start: 12/28/21 14:03 Freq: NEEDED Status: Active Protocol: Document 12/28/21 12:50 AB (Rec: 12/28/21 14:18 AB [id number]) Medical Review Prior Functional Status Medical History Reviewed Yes Communication with confusion Mobility and Gait spouse in room and provided info regarding PLOF and home set up stated that pt is independent with all mobilities and ambulation withotu AD Social History Household Members spouse Living Arrangements House Number of Floors (Floors) One Floor Number of Stairs To Enter/Railing? 2 steps without rails to enter the side of the house 9 steps wide B rails to enter the front of the house Home Environment Standard Height Toilet,Walk in Shower Home Equipment Hand Held Shower,Grab Bars In Shower M2 PT-IP Current Condition Start: 12/28/21 14:03 Freq: NEEDED Status: Active Protocol: Document 12/28/21 12:50 AB (Rec: 12/28/21 14:18 AB [id number]) Physical Therapy Current Condition Current Condition Evaluation Date 12/28/21 Treatment Diagnosis s/p cholecystectomy; difficulty in walking Onset Date 12/26/21 M3 PT-IP Subjective Start: 12/28/21 14:03 Freq: NEEDED Status: Active Protocol: Document 12/28/21 12:50 AB (Rec: 12/28/21 14:18 AB [id number]) Subjective Physical Therapy Visit Type Type Initial Evaluation Visit Start Time 12:50 Visit Stop Time 13:20 Total Visit Minutes 30 Number of TREE CLIMBER Visits 0 Physical Therapy Visit Comments Patient Comments spouse in room and asked pt if he wants to get up and agreed . M4 PT-IP Mobility and Gait Start: 12/28/21 14:03 Freq: NEEDED Status: Active Protocol: Document 12/28/21 12:50 AB (Rec: 12/28/21 14:18 AB [id number]) PT-Bed Mobility Assessment Supine to Sit Supine to Sit Maximum Assistance,2 Person Assistance,Head of Bed Elevated PT-Transfer Assessment Sit to and From Stand Sit to and from Stand Maximum Assistance,2 Person Assistance,Use of Upper Extremities Equipment Transfer Assistive Device Gait Belt,Front Wheeled Walker Orthotic/Prosthetic Devices or Brace: No Transfers Transfer Destination Chair Transfer Technique ambulated Transfer Ability Level of Assist Maximum Assistance,2 Person Assistance,Use of Upper Extremities Comments Mobility Comments pt with dx of Alzheimer's dementia and is impulsive. spouse in room and assisted in instructing pt. pt with abdominal precautions but unable to follow and is impulsive. positioned HOB elevated as pt cannot follow log roll. required max A x 2 and max cues. pt trying to stand up before PT ready or before FWW was set up; NAC also in room to assist; max A x 2 for sit to stand and pt ambulated max A x 2 and max cues, initially took a few steps without AD but used FWW after PT was able to position FWW. completed ~ 5 ft of ambulation max A x 2 and cues. instructed to sit on the chair and completed max A x 2. positioned pt on the chair. call light and table within reach. Left pt with spouse. Gait Assessment Gait Gait Assistance Required: Maximum Assistance,2 Person Assist Distance (Feet) 5 Able to Maintain Weight Bearing Status Yes During Gait Assistive Devices Assistive Device Gait Belt,Front Wheeled Walker Orthotic/Prosthetic Devices or Brace: No Gait Deviations General Gait Pattern Ataxic,Decreased Stride Length ,Decreased Feet Clearance,Step -to Gait Factors Limiting Gait Function Factors Limiting Gait Function Decreased Activity Tolerance, Decreased Strength,Difficulty Following Directions,Limited Range of Motion,Pain,Poor Balance,Poor Safety Awareness PT-Balance Assessment Sitting Balance and Reactions Static Sitting Balance Ability Fair Dynamic Sitting Balance Ability Fair Standing Balance and Reactions Static Standing Balance Ability Poor Dynamic Standing Balance Ability Poor Device Used FWW M5 PT-IP Objective Assessments Start: 12/28/21 14:03 Freq: NEEDED Status: Active Protocol: Document 12/28/21 12:50 AB (Rec: 12/28/21 14:18 AB [id number]) Orientation Orientation/Cognition Level of Alertness Confusional State Orientation Name Safety Awareness Decreased Safety Awareness Memory Description Short Term Impaired,Nursing Home Impaired Strength Comments Strength Comments unable to complete MMT due to pt unable to follow instructions M6 PT-IP Treatment Start: 12/28/21 14:03 Freq: NEEDED Status: Active Protocol: Document 12/28/21 12:50 AB (Rec: 12/28/21 14:18 AB [id number]) Physical Therapy Treatment Education Education Provided Safety M7 PT-IP Assessment and Plan Start: 12/28/21 14:03 Freq: NEEDED Status: Active Protocol: Document 12/28/21 12:50 AB (Rec: 12/28/21 14:18 AB [id number]) PT Summary Assessment and Plan Potential Rehabilitation Potential Fair Status of Condition at Evaluation Evolving Summary Impairments Pain,ROM,Strength,Balance, Coordination,Sensation,Tone, Cognition,Bed Mobility, Transfers,Gait,Activity Tolerance Assessment Summary pt s/p cholecystectomy but has dx Alzheimer's dementia contributing to functional mobility and safety. Pt requiring max A x 2 for mobility and max cues. unable to follow directions consistently. Pt will require SNF rehab to improve strength and function. informed spouse regarding SNF but is worried of pt going to SNF due to dementia. will continue to assess progress and will conduct caregiver training when appropriate. Goals Bed Mobility Goal Standby Assistance Transfer Goal Standby Assistance,Front Wheeled Walker Gait Goal Standby Assistance,Front Wheel Walker Gait Distance 100 Other Goals improve transfers, ambulation without AD SBA 200 ft up/down 2 steps POST ACUTE CARE NURSE min Days to Meet Goals 10 Frequency of Treatment Frequency Of Treatment Once a Day Treatment Plan Physical Therapy Treatment Plan Bed Mobility Training,Transfer Training,Gait Training, Therapeutic Exercise,Balance Retraining,Post Op Education, Discharge Planning,Hot or Cold Pack,Neuromuscular Re-ed, Coordination Retraining,Manual Therapy Precautions Abdominal Surgery Precautions Log Roll,Lifting Restrictions, Gait Belt above Incisional Area Recommendations To Nursing Amount of Assist Needed 2 Person Assist Discharge Recommendations PT Discharge Recommendations Home with 16/06 Assist Available,Home Health,SNF Rehab,Home vs SNF Equipment Needed for Home Before FWW if not safe without AD Discharge Transportation Needs at Discharge Wheelchair/Cabulance
--- NOTE | 2021-12-28 13:36 | PM.PN.1 ---
Subjective Subjective Interval history: The patient's reports the patient complains of pain intermittently and it is relieved with pain meds. She states that he's trying to get his strength back. She reports he's not eating quite as much. She denies any other active issues. Exam Vital Signs (past 8 hours): - 12/28/21 09:39 12/28/21 10:30 12/28/21 11:06 Temperature 98.8 F Pulse Rate 68 Respiratory Rate 17 Blood Pressure 150/61 H Pulse Oximetry 96 96 96 Oxygen Delivery Method Room Air Oxygen Flow Rate 2 Narrative Exam Narrative: Const Other: Patient laying in bed comfortably upon my entering the room, in no apparent acute distress. Eyes Other: No scleral icterus appreciated. Resp Other: Lungs clear to auscultation bilaterally. Cardio Other: RRR. S1 and S2 heart sounds normal, with no extra heart sounds or murmurs appreciated. No peripheral edema noted. GI Other: Soft, non-distended, slightly tender to RUQ area. Bandage over incision site clean, dry, intact. Bowel sounds heard. Skin Other: No grossly abnormal skin lesions appreciated. Neuro Other: Oriented to person, but not time and place. Objective Labs Result Diagrams: 12/28/21 05:20 12/28/21 05:20 Labs: Laboratory Results - last 24 hr 12/28/21 12/28/21 05:20 05:20 WBC 12.2 H RBC 3.82 L Hgb 11.5 L Hct 34.8 L MCV 91.2 MCH 30.2 MCHC 33.1 RDW 14.4 Plt Count 220 Neut % (Auto) 80.7 H Lymph % (Auto) 11.1 L [place] % (Auto) 7.5 Eos % (Auto) 0.4 L Baso % (Auto) 0.3 Neut # (Auto) 9800 H Lymph # (Auto) 1300 [place] # (Auto) 900 Eos # (Auto) 0 Baso # (Auto) 0 Sodium 139 Potassium 4.0 Chloride 109 H Carbon Dioxide 27 BUN 26 H Creatinine 0.98 Estimated GFR > 60.0 BUN/Creatinine Ratio 26.5 H Glucose 126 H Calcium 8.9 Magnesium 2.2 Total Bilirubin 0.9 AST 104 H ALT 93 H Alkaline Phosphatase 55 Total Protein 6.3 Albumin 3.1 L Globulin 3.2 Albumin/Globulin Ratio 1.0 PFSH Medical History Chicken pox Chronic back pain Dementia Fractures Hearing loss Measles Memory problem Vision disorder Surgical History Anesthesia History of carpal tunnel repair History of eye surgery (~04/26/14) History of hemorrhoidectomy History of rotator cuff surgery History of thumb surgery Pacemaker (~03/04/18) Status post hernia repair (~08/01/08) Status post LASIK surgery of both eyes Family History Father History of heart disease Mother Diabetes mellitus Brother History of heart disease Social History marital status: household members: spouse Smoking Status: Former smoker alcohol intake: never Assessment & Plan Assessment & Plan narrative: Assessment: 1. Acute cholecystitis, status post laporoscopic cholecystectomy 2. Atrial fibrillation on Xarelto 3. Elevated INR, without active bleeding 4. Advanced Alzheimer's dementia 5. Hx of aphthous ulcers, not active currently Plan: 1. Underwent lap cholecystectomy on Dec 27. IV Zosyn on-board (started on Dec 26). 2. Will resume home Xarelto dose today. 3. Likely due to vitamin K deficiency, that is likely nutrition-related. IV vitamin K 5 mg given one-time on Dec 26. INR's trending down. 4. Patient's states he was formally diagnosed in 2017. Will continue home memantine 10 mg bid. 5. Pt's reports ocassional canker sores on his lips for which patient take Valtrex. Denies that this is an active issue now. VTE prophylaxis: Xarelto, as per problem 2 Time Spent With Patient Critical Care time: I spent a total of [] minutes of critical care time on this patient's care today; this time is exclusive of procedural time. Quality VTE Deep Vein Thrombosis/Pulmonary Embolism Present on Admission: No
--- NOTE | 2021-12-28 14:57 | CM.DPNOTE ---
Called April from and asked her to review patient inform., per Loyda. Called Patient's who will bring in vacc. card and have RICKY Bowling take a copy of it and give to Loyda. Alma George CM Asst.
--- NOTE | 2021-12-28 16:10 | PC.NURSE ---
Addendum entered by Tawnya Victor R.N. 12/28/21 19:54: Patients ivf d/cd per . He is getting zosyn and this has been hung. Patients is still in room, she may stay the night tonight. Original Note: Patient is alert but confused x2, He has an incision to his lower midline with pankaj and dressing intact. Patient 2 person assist when getting up. We are going to put him back to bed now. in room, he has been getting iv morphine for pain and this has been helpful. Getting ready to eat dinner.
--- NOTE | 2021-12-28 16:36 | PM.PN.1 ---
Subjective Subjective Date Patient Seen: 12/28/21 Time Patient Seen: 16:36 Interval history: Patient has had some delirium and has been trying to pull out his IV lines. Exam Vital Signs (past 8 hours): - 12/28/21 09:39 12/28/21 10:30 12/28/21 11:06 Temperature 98.8 F Pulse Rate 68 Respiratory Rate 17 Blood Pressure 150/61 H Pulse Oximetry 96 96 96 Oxygen Delivery Method Room Air Oxygen Flow Rate 2 Narrative Exam Narrative: Sleepy at the time of this exam Dressings are intact Drain is serous Objective Labs Result Diagrams: 12/28/21 05:20 12/28/21 05:20 Labs: Laboratory Results - last 24 hr 12/28/21 12/28/21 05:20 05:20 WBC 12.2 H RBC 3.82 L Hgb 11.5 L Hct 34.8 L MCV 91.2 MCH 30.2 MCHC 33.1 RDW 14.4 Plt Count 220 Neut % (Auto) 80.7 H Lymph % (Auto) 11.1 L [place] % (Auto) 7.5 Eos % (Auto) 0.4 L Baso % (Auto) 0.3 Neut # (Auto) 9800 H Lymph # (Auto) 1300 [place] # (Auto) 900 Eos # (Auto) 0 Baso # (Auto) 0 Sodium 139 Potassium 4.0 Chloride 109 H Carbon Dioxide 27 BUN 26 H Creatinine 0.98 Estimated GFR > 60.0 BUN/Creatinine Ratio 26.5 H Glucose 126 H Calcium 8.9 Magnesium 2.2 Total Bilirubin 0.9 AST 104 H ALT 93 H Alkaline Phosphatase 55 Total Protein 6.3 Albumin 3.1 L Globulin 3.2 Albumin/Globulin Ratio 1.0 PFSH Medical History Chicken pox Chronic back pain Dementia Fractures Hearing loss Measles Memory problem Vision disorder Surgical History Anesthesia History of carpal tunnel repair History of eye surgery (~04/26/14) History of hemorrhoidectomy History of rotator cuff surgery History of thumb surgery Pacemaker (~03/04/18) Status post hernia repair (~08/01/08) Status post LASIK surgery of both eyes Family History Father History of heart disease Mother Diabetes mellitus Brother History of heart disease Social History marital status: household members: spouse Smoking Status: Former smoker alcohol intake: never Assessment & Plan Assessment and plan (1) Postoperative examination: Status: Acute Plan Zyprexa for delirium Continue clear liquid diet and drain for now Time Spent With Patient Critical Care time: I spent a total of [] minutes of critical care time on this patient's care today; this time is exclusive of procedural time. Quality VTE Deep Vein Thrombosis/Pulmonary Embolism Present on Admission: No
[2021-12-28] MEDS: RIVAROXABAN 10 MG TABLET 20 MG PO (20:29)
[2021-12-28] MEDS: ONDANSETRON 4 MG/2 ML INJ IV (21:27)
[2021-12-29] VITALS (9 sets, daily range): BP systolic 131–145; BP diastolic 58–72; PULSE 58–64; RESP 16–20; TEMP 36.8–37.1; O2SAT 94–96
--- NOTE | 2021-12-29 01:24 | PC.NURSE ---
Earlier in shift RN called to patient room as patient was complaining of nausea, pulling at tubes/lines and attempting to get out of bed. at bedside and coordinator called to bedside as well. FLACC score of 6 so medicated with Morphine for pain and Zofran for nausea. Did not have actual emesis. Once patient had medication he became calmer and staff able to get him to lie back down in bed, catheter resecured to leg and telemetry leads replaced. Dr Lambert informed of patient's behavior and telemetry discontinued. Patient is only oriented to self and birthdate. Breath sounds CTA with RA sat of 93%. HRR. BP elevated at 174/81 possible due to agitation. BT hypoactive and unknown if he has passed flatus. Abdomen is distended and tender to touch. Dressings to abdomen are CDI. ELLE is intact and compressed; emptied of 70cc serosanguinous drainage. Indwelling catheter is patent; urine is clear, ab. SCD's not applied at this time due to patient's agitation. Fall risk score is high and bed alarm is activated. Temp noted to be 100.5 earlier so now rechecked and is 98.8. Patient asleep at this time so BP not rechecked.
[2021-12-29] MEDS: SODIUM CHLORIDE 0.9% FLUSH 10 ML IV ×3 (02:24→20:37)
[2021-12-29] MEDS: PIPERACILLIN/TAZO 3.375 GM in SODIUM CHLORIDE 0.9% 100 ML 25 ML IV ×3 (02:24→19:12)
--- NOTE | 2021-12-29 07:26 | PM.PN.1 ---
Subjective Subjective Interval history: He is seen in his room here today to follow-up his dementia and recent cholecystectomy. He is remaining quite sedated at least during my visit. There had been some consideration of sending him home today but he does not appear well and stable. Exam Vital Signs (past 8 hours): - 12/29/21 01:24 12/29/21 05:06 Temperature 98.8 F 98.4 F Pulse Rate 64 Respiratory Rate 17 Blood Pressure 144/72 H Pulse Oximetry 94 Oxygen Delivery Method Room Air Oxygen Flow Rate 0 Narrative Exam Narrative: He is asleep and does not easily wake up. His is present by the bedside and has been communicating with him this morning Heart is regular rate and rhythm without murmur Lungs are clear to auscultation bilaterally Extremities have no ankle edema Abdomen is distended with a long horizontal open cholecystectomy scar and a ELLE drain in place below that. He has a Goldberg catheter Objective Labs Result Diagrams: 12/29/21 08:15 12/28/21 05:20 [facility] Medical History Chicken pox Chronic back pain Dementia Fractures Hearing loss Measles Memory problem Vision disorder Surgical History Anesthesia History of carpal tunnel repair History of eye surgery (~04/26/14) History of hemorrhoidectomy History of rotator cuff surgery History of thumb surgery Pacemaker (~03/04/18) Status post hernia repair (~08/01/08) Status post LASIK surgery of both eyes Family History Father History of heart disease Mother Diabetes mellitus Brother History of heart disease Social History marital status: household members: spouse Smoking Status: Former smoker alcohol intake: never Assessment & Plan Assessment & Plan narrative: Assessment: 1. Acute cholecystitis, status post Open cholecystectomy 2. Atrial fibrillation on Xarelto 3. Elevated INR, without active bleeding 4. Advanced Alzheimer's dementia 5. Hx of aphthous ulcers, not active currently Plan: 1. Underwent Open cholecystectomy on Dec 27. IV Zosyn started on Dec 26. Liver enzymes are normalizing. 2. Continue Xarelto 3. Received 1 dose of IV vitamin K 4. Will continue home memantine 10 mg bid. 5. Pt's reports ocassional canker sores on his lips for which patient take Valtrex. Denies that this is an active issue now. The patient appears to be weekend and ill to the point of needing [facility]. His may be planning to take him home. VTE prophylaxis: Xarelto, as per problem 2 Time Spent With Patient Critical Care time: I spent a total of [] minutes of critical care time on this patient's care today; this time is exclusive of procedural time. Quality VTE Deep Vein Thrombosis/Pulmonary Embolism Present on Admission: No
[2021-12-29 08:29] LABS: Add Manual Diff / Slide Review NO; Basophils Absolute Auto 0 /uL (0-100); Basophils Percent Auto 0.4 % (0-2); Eosinophils Absolute Auto 200 /uL (0-450); Eosinophils Percent Auto 2.1 % (2-4); Hematocrit 34.8 % (41-53); Hemoglobin 11.4 g/dL (13.5-17.5); Lymphocytes Absolute Auto 1200 /uL (1100-4500); Lymphocytes Percent Auto 15.1 % (25-40); Mean Corpuscular HGB Conc 32.8 % (30-36); Mean Corpuscular Hemoglobin 29.9 PG (26-34); Mean Corpuscular Volume 91.4 fL (80-100); Monocytes Absolute Auto 700 /uL (0-900); Monocytes Percent Auto 8.8 % (3-14); Neutrophils Absolute Auto 6000 /uL (1500-7000); Neutrophils Percent Auto 73.6 % (50-75); Platelet Count 214 X10^3/uL (150-400); Red Blood Cell Count 3.81 X10^6/uL (4.5-5.9); White Blood Cell Count 8.1 X10^3/uL (4.5-11.0)
--- NOTE | 2021-12-29 10:49 | PC.NURSE ---
Addendum entered by Tawnya Victor R.N. 12/29/21 15:25: Patient up earlier with physical therapy and back to bed, he is a two person assist. left for a few hours and will be back to visit. Original Note: Patients dressing to ml cdi, o drainage noted. Patient has a brian drain that is putting out ss drainage. Patient has dementia and is confused. has been staying with patient throughout his stay. He has taken off his gown, and seems to be comfortable sleeping with just the sheet.
[2021-12-29] MEDS: MEMANTINE HCL 5 MG TABLET 10 MG PO ×2 (11:39→20:35)
[2021-12-29] MEDS: METOPROLOL IR 25 MG TABLET 12.5 MG PO ×2 (11:40→20:35)
--- NOTE | 2021-12-29 11:42 | PT.IPTN ---
Current Diagnoses Acute cholecystitis (12/26/21) Encounter for follow-up examination after completed treatment for conditions other than malignant neoplasm (12/26/21) Surgery Performed Operation Date: 12/27/21 12:00 Actual Procedures p Laparoscopic Cholecystectomy(Not Applicable) - Jalen Alfredo MD Physical Therapy Treatment Note M2 PT-IP Current Condition Start: 12/28/21 14:03 Freq: NEEDED Status: Active Protocol: Document 12/28/21 12:50 AB (Rec: 12/28/21 14:18 AB [id number]) Physical Therapy Current Condition Current Condition Evaluation Date 12/28/21 Treatment Diagnosis s/p cholecystectomy; difficulty in walking Onset Date 12/26/21 M3 PT-IP Subjective Start: 12/28/21 14:03 Freq: NEEDED Status: Active Protocol: Document 12/29/21 11:18 KS (Rec: 12/29/21 12:58 KS [id number]) Subjective Physical Therapy Visit Type Type Treatment Note Visit Start Time 11:18 Visit Stop Time 11:42 Total Visit Minutes 24 Notes Partial co-treat w/ OT. 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 Therapy Pain Assessment Pain Present Pain Present Pain Reported Location Abdomen Scale Used did not quantify Pain Behaviors Guarding,Moaning,Restlessness, Wincing Pain Management Techniques Distraction,Modification of Treatment,Re-positioning M4 PT-IP Mobility and Gait Start: 12/28/21 14:03 Freq: NEEDED Status: Active Protocol: Document 12/29/21 11:18 [place] (Rec: 12/29/21 12:58 [place] [id number]) PT-Bed Mobility Assessment Supine to Sit Supine to Sit Moderate Assistance,1 Person Assistance,Head of Bed Elevated Scooting Scooting to Edge of Bed Minimal Assistance PT-Transfer Assessment Sit to and From Stand Sit to and from Stand Minimal Assistance,Moderate Assistance,2 Person Assistance ,Use of Upper Extremities Equipment Transfer Assistive Device Gait Belt,Front Wheeled Walker Orthotic/Prosthetic Devices or Brace: No Transfers Transfer Destination Chair Transfer Technique ambulated Transfer Ability Level of Assist Minimal Assistance,Moderate Assistance,2 Person Assistance ,Use of Upper Extremities Comments Mobility Comments Pt in bed upon arrival and in room. Mod A for sup<> sit w/ HOB slightly elevated and Min A for scooting EOB. Pt able to maintain seated balance ~3 min while seated EOB before sit<>stand w/ FWW and Min A max cues. Pt then transferred to chair w/ FWW Mod A max cues and reported increased pain. OT arrived and provided assist for pt sit<> Stand from chair Mod A x2 w/ max cues. Pt then ambulated ~ 25 ft around room w/ Min A and verbal and tactile cues for safety and FWW management. Pt returned to chair and stand<> sit Min A for slow descent w/ Max A x2 for scooting all the way back in chair. Pt left in chair w/ OT in room. Gait Assessment Gait Gait Assistance Required: Minimum Assistance,Moderate Assistance,1 Person Assist Distance (Feet) 30 Able to Maintain Weight Bearing Status Yes During Gait Assistive Devices Assistive Device Gait Belt,Front Wheeled Walker Orthotic/Prosthetic Devices or Brace: No Gait Deviations General Gait Pattern Ataxic,Decreased Stride Length ,Decreased Feet Clearance,Step -to Gait Factors Limiting Gait Function Factors Limiting Gait Function Decreased Activity Tolerance, Decreased Strength,Difficulty Following Directions,Limited Range of Motion,Pain,Poor Balance,Poor Safety Awareness Comments Gait Comments Pt showed increased toelrance and decreased assist for ambulation w/ FWW however continues to require frequent cues for safety and FWW use/ mgmt. PT-Balance Assessment Sitting Balance and Reactions Static Sitting Balance Ability Fair Dynamic Sitting Balance Ability Fair Standing Balance and Reactions Static Standing Balance Ability Poor Dynamic Standing Balance Ability Poor Device Used FWW M5 PT-IP Objective Assessments Start: 12/28/21 14:03 Freq: NEEDED Status: Active Protocol: Document 12/28/21 12:50 AB (Rec: 12/28/21 14:18 AB [id number]) Orientation Orientation/Cognition Level of Alertness Confusional State Orientation Name Safety Awareness Decreased Safety Awareness Memory Description Short Term Impaired,Long-Term Impaired Strength Comments Strength Comments unable to complete MMT due to pt unable to follow instructions M6 PT-IP Treatment Start: 12/28/21 14:03 Freq: NEEDED Status: Active Protocol: Document 12/29/21 11:18 KS (Rec: 12/29/21 12:58 KS [id number]) Physical Therapy Treatment Education Education Provided Safety M7 PT-IP Assessment and Plan Start: 12/28/21 14:03 Freq: NEEDED Status: Active Protocol: Document 12/29/21 11:18 KS (Rec: 12/29/21 12:58 [place] [id number]) PT Summary Assessment and Plan Potential Rehabilitation Potential Fair Status of Condition at Evaluation Evolving Summary Impairments Pain,ROM,Strength,Balance, Coordination,Sensation,Tone, Cognition,Bed Mobility, Transfers,Gait,Activity Tolerance Progress Towards Goals Slow Progress due to Pain,Slow Progress due to Medical Issues,Slow Progress due to Activity Tolerance Assessment Summary Pt showed improvements w/ assist level needed today however continues to require up to Mod A x2 and is unsafe and limited in mobility due to impulsiveness, weakness, poor safety awareness, poor balance, and confusion. He needed frequent verbal and tactile cues for all tasks. Will continue to assess, but at this time recommending SNF due to high fall risk, weakness, and poor safety awareness. Goals Bed Mobility Goal Standby Assistance Transfer Goal Standby Assistance,Front Wheeled Walker Gait Goal Standby Assistance,Front Wheel Walker Gait Distance 100 Other Goals improve transfers, ambulation without AD SBA 200 ft up/down 2 steps BAND SAWYER min Days to Meet Goals 10 Frequency of Treatment Frequency Of Treatment Once a Day Treatment Plan Physical Therapy Treatment Plan Bed Mobility Training,Transfer Training,Gait Training, Therapeutic Exercise,Balance Retraining,Post Op Education, Discharge Planning,Hot or Cold Pack,Neuromuscular Re-ed, Coordination Retraining,Manual Therapy Precautions Abdominal Surgery Precautions Log Roll,Lifting Restrictions, Gait Belt above Incisional Area Recommendations To Nursing Amount of Assist Needed 2 Person Assist Discharge Recommendations PT Discharge Recommendations Home with / Assist Available,Home Health,SNF Rehab,Home vs SNF Equipment Needed for Home Before FWW if not safe without AD Discharge Transportation Needs at Discharge Wheelchair/Cabulance
--- NOTE | 2021-12-29 11:56 | OT.IP.EVAL ---
Current Diagnoses Acute cholecystitis (12/26/21) Encounter for follow-up examination after completed treatment for conditions other than malignant neoplasm (12/26/21) Surgery Performed Operation Date: 12/27/21 12:00 Actual Procedures p Laparoscopic Cholecystectomy(Not Applicable) - Jalen Alfredo MD Past Medical History (Last Reviewed 12/26/21 @ 09:02 by Tree Luther DO) Chicken pox Chronic back pain Dementia Fractures Hearing loss History of eye surgery (~04/26/14) History of hemorrhoidectomy History of rotator cuff surgery History of thumb surgery Measles Memory problem Status post LASIK surgery of both eyes Vision disorder Surgical History (Last Reviewed 12/24/21 @ 09:08 by Nisha Brewer MD) Anesthesia History of carpal tunnel repair History of eye surgery (~04/26/14) History of hemorrhoidectomy History of rotator cuff surgery History of thumb surgery Pacemaker (~03/04/18) Status post hernia repair (~08/01/08) Status post LASIK surgery of both eyes Occupational Therapy Inpatient Evaluation/Re-Eval M1 PT/OT-IP Prior Functional Status Start: 12/28/21 14:03 Freq: NEEDED Status: Active Protocol: Document 12/29/21 11:30 [facility] (Rec: 12/29/21 12:20 [facility] [id number]) Medical Review Prior Functional Status Medical History Reviewed Yes Communication with confusion Mobility and Gait spouse in room and provided info regarding PLOF and home set up stated that pt is independent with all mobilities and ambulation without AD Activities of Daily Living and IADL's Pt needing supervision for orientation of clothing items nad cues for completeness. Social History Household Members spouse Living Arrangements House Number of Floors (Floors) One Floor Number of Stairs To Enter/Railing? 2 steps without rails to enter the side of the house 9 steps wide B rails to enter the front of the house Home Environment Standard Height Toilet,Walk in Shower Home Equipment Hand Held Shower,Grab Bars In Shower M2 OT-IP Current Condition Start: 12/29/21 11:58 Freq: Status: Active Protocol: Document 12/29/21 11:30 [facility] (Rec: 12/29/21 12:20 [facility] [id number]) Occupational Therapy Current Condition Current Condition Evaluation Date 12/29/21 Treatment Diagnosis s/p open cholecystectomy Diagnosis Onset Date 12/26/21 M3 OT- IP Subjective and Pain Start: 12/29/21 11:58 Freq: Status: Active Protocol: Document 12/29/21 11:30 [facility] (Rec: 12/29/21 12:20 [facility] [id number]) OT- Subjective Occupational Therapy Visit Type Type Initial Evaluation Visit Start Time 11:30 Visit Stop Time 11:56 Total Visit Minutes 26 Occupational Therapy Visit Comments Patient Comments Pt just finishing up with BLADE FILER and agreed to get up to walk a little in the room. Pt's present in the room. Patient/Caregiver Goals To go home. OT Pain Assessment Pain When Pain Assessed At Rest Pain Present Pain Present Unable to Respond FLACC Pain Scale Face Occasional grimace/frown M4 OT- IP ADL's Start: 12/29/21 11:58 Freq: Status: Active Protocol: Document 12/29/21 11:30 [facility] (Rec: 12/29/21 12:20 [facility] [id number]) OT [id number] Comments OT Self-Feeding Comments Not at meal time, yesterday needing to be feed. OT ADL-Grooming General Evaluation Grooming Ability Moderate Assistance,Maximum Assistance Areas Needing Assistance Combing/Brushing Hair Comments OT Grooming Comments Assist to come his hair and assist for completeness to wash his face. OT ADL-Oral Care General Eval Oral Care Ability Standby Assistance Comments Oral Care Comments Pt needing cues to spit out the water from his mouth, unable to sit into a basin and able to spit into a cup after cues. OT ADL-Dressing Comments OT Dressing Comments At this time due to his pain, pt's will just assist pt for his LB dressing needs. OT ADL-Toileting General Evaluation Toileting Ability Total Assistance Comments OT Toileting Comments Catheter in place. OT ADL-Bathing Comments OT Bathing Comments Not performed. M5 OT- IP IADL's Start: 12/29/21 11:58 Freq: Status: Active Protocol: Document 12/29/21 11:30 [facility] (Rec: 12/29/21 12:20 [facility] [id number]) OT-Instrumental Activities of Daily Living Home Safety Awareness Awareness of Need for Assistance at Home Decreased Awareness Ability to Problem Solve Emergency Unable to Problem Solve Situations Home Safety Comments Pt has Alzheimer's dementia and pt's assist pt for all IADL and superivision for ADl needs. Medication Management Medication Management Caregiver Administers Money Management Money Management Caregiver Provides Assistance Meal Preparation Meal Preparation Caregiver Provides Assist Florist Florist Caregiver Provides Assist M6 OT- IP Functional Cognition Start: 12/29/21 11:58 Freq: Status: Active Protocol: Document 12/29/21 11:30 [facility] (Rec: 12/29/21 12:20 [facility] [id number]) Cognitive Factors Limiting Selfcare Function Cognitive Ability Level of Alertness Alert,Drowsy Patient Orientation Name Cognitive Comments Cognitive Assessment Comments Pt a bit drowsy and mainly just oriented to his name. Pt needing tactile and vc to follow commands to help sequence through ADl and mobility needs. OT- Vision and Hearing OT- Vision Assessment Visual Acuity Glasses All The Time M7 OT- IP Mobility and Balance Start: 12/29/21 11:58 Freq: Status: Active Protocol: Document 12/29/21 11:30 [facility] (Rec: 12/29/21 12:20 [facility] [id number]) OT-Transfer Assessment Sit to and From Stand Sit to and from Stand Moderate Assistance,2 Person Assistance Transfers Transfer Ability Moderate Assistance,2 Person Assistance Technique Transfer Destination Chair Transfer Technique Stand Step Pivot Devices Transfer Assistive Devices Gait Belt,Front Wheeled Walker Comments Mobility Comments Pt needing MODA x2 to stand especially when tired and then able to walk LINDA x1 with FWW and then needing MODAx2 at the end as pt tires. OT- Balance Assessment Sitting Balance and Reactions Static Sitting Balance Ability Good Standing Balance and Reactions Static Standing Balance Ability Poor Dynamic Standing Balance Ability Poor M8 OT- IP Objective Assessments Start: 12/29/21 11:58 Freq: Status: Active Protocol: Document 12/29/21 11:30 [facility] (Rec: 12/29/21 12:20 [facility] [id number]) OT Strength Comments Strength Comments Not able to assess due to dementia, however at least 3+/ 5 as able to assist during ADl and mobility needs. Initially pt having trouble to place his right hand up on the handle of the fww. OT- Coordination Assessment Comments Coordination Comments assist for set-up for grooming needs M9 OT- IP Assessment and Plan Start: 12/29/21 11:58 Freq: Status: Active Protocol: Document 12/29/21 11:30 [facility] (Rec: 12/29/21 12:20 [facility] [id number]) OT Summary Assessment and Plan Potential Rehabilitation Potential Fair Analytic Complexity at Evaluation Moderate Summary OT Impairments Balance,Coordination, Functional Cognition, Functional Mobility,Self- Feeding,Grooming,Dressing, Toileting,Bathing,Toilet Transfers,Shower Transfers, Activity Tolerance Progress Towards Goals Slow Progress due to Medical Issues,Slow Progress due to Activity Tolerance,Slow Progress due to Cognition Assessment Summary Pt MOD complexity and main barriers are steps, now needing extensive assist for LB dressing needs due to his pain, and step by step vc for new learning of use of FWW. Prior pt did not walk with a device. Pending pt's progress, hopefully pt to go home with his and home health versus possible SNF. Goals Grooming Goal Standby Assistance Dressing Goal Moderate Assistance Toileting Goal Minimal Assistance Bathing Goal Minimal Assistance Toilet Transfer Goal Independent Shower Transfer Goal Independent Patient/Caregiver Education Goal Caregiver Independent Assisting Patient Days to Meet Goals 10 Frequency of Treatment Frequency Of Treatment Once a Day Treatment Plan OT Treatment Plan ADL Training,Functional Cognition Training,Functional Mobility,Patient/Family Education,Discharge Planning Discharge Recommendations OT Discharge Recommendations Home with 16/06 Assist Available,Home Health,SNF Rehab Home Equipment Needs shower chair Transportation Needs at Discharge Private Vehicle,Wheelchair/ Cabulance
--- NOTE | 2021-12-29 12:41 | PM.PN.1 ---
Subjective Subjective Date Patient Seen: 12/29/21 Time Patient Seen: 12:42 Interval history: Has been somnolent since yesterday. Has not required any Zyprexa for agitation Exam Vital Signs (past 8 hours): - 12/29/21 05:06 12/29/21 09:29 Temperature 98.4 F 98.3 F Pulse Rate 64 63 Respiratory Rate 17 20 Blood Pressure 144/72 H 145/65 H Pulse Oximetry 94 94 Oxygen Delivery Method Room Air Oxygen Flow Rate 0 Narrative Exam Narrative: Sleepy Drain output is serous Resp Effort & Inspection: normal respiratory effort Objective Labs Result Diagrams: 12/29/21 08:15 12/28/21 05:20 Labs: Laboratory Results - last 24 hr 12/29/21 08:15 WBC 8.1 RBC 3.81 L Hgb 11.4 L Hct 34.8 L MCV 91.4 MCH 29.9 MCHC 32.8 RDW 14.0 Plt Count 214 Neut % (Auto) 73.6 Lymph % (Auto) 15.1 L [place] % (Auto) 8.8 Eos % (Auto) 2.1 Baso % (Auto) 0.4 Neut # (Auto) 6000 Lymph # (Auto) 1200 [place] # (Auto) 700 Eos # (Auto) 200 Baso # (Auto) 0 PFSH Medical History Chicken pox Chronic back pain Dementia Fractures Hearing loss Measles Memory problem Vision disorder Surgical History Anesthesia History of carpal tunnel repair History of eye surgery (~04/26/14) History of hemorrhoidectomy History of rotator cuff surgery History of thumb surgery Pacemaker (~03/04/18) Status post hernia repair (~08/01/08) Status post LASIK surgery of both eyes Family History Father History of heart disease Mother Diabetes mellitus Brother History of heart disease Social History marital status: household members: spouse Smoking Status: Former smoker alcohol intake: never Assessment & Plan Assessment and plan (1) Postoperative examination: Status: Acute Plan Treat delirium as needed Expect gradual return to baseline. Can advance diet as tolerates. We will DC drain when he is getting close to being of the discharge. Time Spent With Patient Critical Care time: I spent a total of [] minutes of critical care time on this patient's care today; this time is exclusive of procedural time. Quality VTE Deep Vein Thrombosis/Pulmonary Embolism Present on Admission: No
[2021-12-29] MEDS: RIVAROXABAN 10 MG TABLET 20 MG PO (20:35)
[2021-12-30] VITALS (10 sets, daily range): BP systolic 128–139; BP diastolic 60–82; PULSE 60–65; RESP 16–19; TEMP 36.4–37.1; O2SAT 94–98
[2021-12-30] MEDS: SODIUM CHLORIDE 0.9% 250 ML 21 ML IV (02:53)
[2021-12-30] MEDS: PIPERACILLIN/TAZO 3.375 GM in SODIUM CHLORIDE 0.9% 100 ML 25 ML IV ×3 (02:53→19:34)
[2021-12-30] MEDS: ONDANSETRON 4 MG/2 ML INJ IV (07:40)
--- NOTE | 2021-12-30 10:21 | PC.NURSE ---
Addendum entered by Tawnya Victor R.N. 12/30/21 19:21: Patients palmer catheter taken out earlier and he has voided 500cc of yellow urine. Addendum entered by Tawnya Victor R.N. 12/30/21 18:45: Patients brian drain was taken out earlier by Dr Ray. Site is dressed and wnl. home now and patient is resting comfortably. Addendum entered by Tawnya Victor R.N. 12/30/21 11:31: Patient had another loose bowel movement in bed. He is now on the commode and still going. Patient is confused x2. Working with physical therapy now. Original Note: Patient had some nausea this morning, given zofran and helpful. He was figity and took off his dressings to incision, which looks wnl and pankaj intact. Redressed with allevyn foam dressing. Patients palmer taken out as ordered by yesterday. He also had a large soft/loose bowel movement in the bed dobbins. Patient is resting now and went to the store.
--- NOTE | 2021-12-30 11:46 | PT.IPTN ---
Current Diagnoses Acute cholecystitis (12/26/21) Encounter for follow-up examination after completed treatment for conditions other than malignant neoplasm (12/26/21) Surgery Performed Operation Date: 12/27/21 12:00 Actual Procedures p Laparoscopic Cholecystectomy(Not Applicable) - Jalen Alrfedo MD Physical Therapy Treatment Note M2 PT-IP Current Condition Start: 12/28/21 14:03 Freq: NEEDED Status: Active Protocol: Document 12/30/21 11:46 MA (Rec: 12/30/21 13:14 MA [id number]) Physical Therapy Current Condition Current Condition Evaluation Date 12/28/21 Treatment Diagnosis s/p cholecystectomy; difficulty in walking Onset Date 12/26/21 M3 PT-IP Subjective Start: 12/28/21 14:03 Freq: NEEDED Status: Active Protocol: Document 12/30/21 11:46 MA (Rec: 12/30/21 13:14 MA [id number]) Subjective Physical Therapy Visit Type Type Treatment Note Visit Start Time 11:05 Visit Stop Time 11:46 Total Visit Minutes 41 Number of BILINGUAL SOCIAL WORKER Visits 2 Physical Therapy Visit Comments Patient Comments Spouse present for session. Pt agreeable to getting up and states he thinks he needs to use the commode. Therapy Pain Assessment Pain When Pain Assessed During Mobility Pain Present Pain Present Pain Reported Location Abdomen Scale Used did not quantify Pain Behaviors Guarding,Moaning,Restlessness, Wincing Pain Management Techniques Distraction,Modification of Treatment,Re-positioning M4 PT-IP Mobility and Gait Start: 12/28/21 14:03 Freq: NEEDED Status: Active Protocol: Document 12/30/21 11:46 MA (Rec: 12/30/21 13:14 MA [id number]) PT-Bed Mobility Assessment Supine to Sit Supine to Sit Moderate Assistance,2 Person Assistance,Head of Bed Elevated Sit to Supine Sit to Supine Moderate Assistance,1 Person Assistance Scooting Scooting to Edge of Bed Moderate Assistance PT-Transfer Assessment Sit to and From Stand Sit to and from Stand Minimal Assistance,1 Person Assistance,Use of Upper Extremities Equipment Transfer Assistive Device Gait Belt,Front Wheeled Walker Orthotic/Prosthetic Devices or Brace: No Transfers Transfer Destination Bedside Commode Transfer Technique Stand Step Pivot Transfer Ability Level of Assist Minimal Assistance,Moderate Assistance,1 Person Assistance ,2 Person Assistance,Use of Upper Extremities Comments Mobility Comments Pt in bed upon arrival with present. Pt states he has to go to the bathroom but pt is found to have already had loose bowel movement in bed. Pt is impulsive throughout session and tries to get up, requiring Mod Ax2 to follow abdominal precautions and Mod Ax2 for initial transfer to bedside commode due to impulsive movements trying to get to commode quickly. Once pt is on commode he is able to perform several sit<>stand transfers from commode Min Ax1 with gait belt and FWW. Every time pt stands he has bowel movement and requires Min Ax1 with cues for hand placement during sit<>stands. Pt is able to transfer stand-step pivot with gait belt and FWW back toward bed but is unable to step laterally toward HOB without Max A due to confusion about task. He requires Mod A x1 to return to supine in bed with BILINGUAL SOCIAL WORKER assisting pt onto L forearm to SL and then rolling to supine. Gait Assessment Comments Gait Comments Due to pt continuing to have bowel movements, unable to perform gait this session. PT-Balance Assessment Sitting Balance and Reactions Static Sitting Balance Ability Fair Dynamic Sitting Balance Ability Fair Standing Balance and Reactions Static Standing Balance Ability Poor Dynamic Standing Balance Ability Poor Device Used FWW M5 PT-IP Objective Assessments Start: 12/28/21 14:03 Freq: NEEDED Status: Active Protocol: Document 12/28/21 12:50 AB (Rec: 12/28/21 14:18 AB [id number]) Orientation Orientation/Cognition Level of Alertness Confusional State Orientation Name Safety Awareness Decreased Safety Awareness Memory Description Short Term Impaired,Mcfp Impaired Strength Comments Strength Comments unable to complete MMT due to pt unable to follow instructions M6 PT-IP Treatment Start: 12/28/21 14:03 Freq: NEEDED Status: Active Protocol: Document 12/30/21 11:46 MA (Rec: 12/30/21 13:14 MA [id number]) Physical Therapy Treatment Education Education Provided Precautions,Safety Other Treatments Other Treatment Performed Discussed treatment and abdominal precautions with . M7 PT-IP Assessment and Plan Start: 12/28/21 14:03 Freq: NEEDED Status: Active Protocol: Document 12/30/21 11:46 MA (Rec: 12/30/21 13:14 MA [id number]) PT Summary Assessment and Plan Potential Rehabilitation Potential Fair Status of Condition at Evaluation Evolving Summary Impairments Pain,ROM,Strength,Balance, Coordination,Sensation,Tone, Cognition,Bed Mobility, Transfers,Gait,Activity Tolerance Progress Towards Goals Slow Progress due to Pain,Slow Progress due to Medical Issues,Slow Progress due to Activity Tolerance Assessment Summary Pt is impulsive requiring mod Ax2 for first transfer to bedside commode due to his impulsive behavior. He is unable to remember abdominal precautions and pulls at drainage tube throughout session. Once pt is on bedside commode he progresses to Min Ax1 for sit<>stands with cues for hand placement. Pt performs several sit<>stands at bedside commode with gait belt and FWW. He is able to stand CGA with FWW for about 2 minutes before beginning to need Min Ax1 for posterior lean. Pt is able to transfer from bedside commode back to bed with gait belt and FWW, initially requiring only Min Ax1 but shows confusion when asked to step laterally toward HOB and requires Mod Ax2 for guidance while stepping laterally. Discussed with at end of session possibility of requiring SNF due to pt's inability to remember abdominal precautions, increased assistance required for transfers and gait, and pt needing to complete 2 steps to enter house. Due to pt continuing to have bowel movements, he is unable to complete further ambulation this session. Pt is left with all needs within reach and GROUP CONTROLLER present in room. Goals Bed Mobility Goal Standby Assistance Transfer Goal Standby Assistance,Front Wheeled Walker Gait Goal Standby Assistance,Front Wheel Walker Gait Distance 100 Other Goals improve transfers, ambulation without AD SBA 200 ft up/down 2 steps PAPER LATCHER min Days to Meet Goals 10 Frequency of Treatment Frequency Of Treatment Once a Day Treatment Plan Physical Therapy Treatment Plan Bed Mobility Training,Transfer Training,Gait Training, Therapeutic Exercise,Balance Retraining,Post Op Education, Discharge Planning,Hot or Cold Pack,Neuromuscular Re-ed, Coordination Retraining,Manual Therapy Precautions Abdominal Surgery Precautions Log Roll,Lifting Restrictions, Gait Belt above Incisional Area Recommendations To Nursing Amount of Assist Needed 2 Person Assist Discharge Recommendations PT Discharge Recommendations Home with 16/06 Assist Available,Home Health,SNF Rehab,Home vs SNF Equipment Needed for Home Before FWW if not safe without AD Discharge Transportation Needs at Discharge Wheelchair/Cabulance
[2021-12-30] MEDS: MEMANTINE HCL 5 MG TABLET 10 MG PO ×2 (12:26→21:05)
[2021-12-30] MEDS: METOPROLOL IR 25 MG TABLET 12.5 MG PO ×2 (12:27→21:04)
--- NOTE | 2021-12-30 13:08 | P.PN_ITS ---
Subjective Subjective Date Patient Seen: 12/30/21 Time Patient Seen: 13:08 Interval history: Agitated, pulling at drain and dressings Exam Vital Signs (past 8 hours): - 12/30/21 06:00 12/30/21 07:50 12/30/21 13:00 Temperature 97.5 F L Pulse Rate 65 Respiratory Rate 16 Blood Pressure 136/82 Pulse Oximetry 94 94 98 Oxygen Delivery Method Room Air Oxygen Flow Rate 0 Narrative Exam Narrative: Drain output is serosanguineous Abdomen soft Objective Labs Result Diagrams: 12/29/21 08:15 12/28/21 05:20 [facility] Medical History Chicken pox Chronic back pain Dementia Fractures Hearing loss Measles Memory problem Vision disorder Surgical History Anesthesia History of carpal tunnel repair History of eye surgery (~04/26/14) History of hemorrhoidectomy History of rotator cuff surgery History of thumb surgery Pacemaker (~03/04/18) Status post hernia repair (~08/01/08) Status post LASIK surgery of both eyes Family History Father History of heart disease Mother Diabetes mellitus Brother History of heart disease Social History marital status: household members: spouse Smoking Status: Former smoker alcohol intake: never Assessment & Plan Assessment and plan (1) Postoperative examination: Status: Acute Plan Drain removed Discharge planning for likely [facility] facility. Time Spent With Patient Critical Care time: I spent a total of [] minutes of critical care time on this patient's care today; this time is exclusive of procedural time. Quality VTE Deep Vein Thrombosis/Pulmonary Embolism Present on Admission: No
--- NOTE | 2021-12-30 17:11 | PM.PN.1 ---
Subjective Subjective Date Patient Seen: 12/30/21 Interval history: 76-year-old male with Alzheimer's, atrial fibrillation on Xarelto status post open cholecystectomy on 12/27/2021. Patient confused at baseline. Tolerating general diet. Exam Vital Signs (past 8 hours): - 12/30/21 13:00 Pulse Oximetry 98 Oxygen Delivery Method Room Air Oxygen Flow Rate 0 Narrative Exam Narrative: General: Alert confused and has difficulty following simple commands Lungs: Clear Abdomen: Surgical incision clean and dry, no erythema or fluctuance Extremities: No edema Objective Labs Result Diagrams: 12/29/21 08:15 12/28/21 05:20 [facility] Medical History Chicken pox Chronic back pain Dementia Fractures Hearing loss Measles Memory problem Vision disorder Surgical History Anesthesia History of carpal tunnel repair History of eye surgery (~04/26/14) History of hemorrhoidectomy History of rotator cuff surgery History of thumb surgery Pacemaker (~03/04/18) Status post hernia repair (~08/01/08) Status post LASIK surgery of both eyes Family History Father History of heart disease Mother Diabetes mellitus Brother History of heart disease Social History marital status: household members: spouse Smoking Status: Former smoker alcohol intake: never Assessment & Plan Assessment & Plan narrative: 1. Acute cholecystitis -status post open cholecystectomy -tolerating diet -surgery to remove drain prior to discharge 2. Atrial fibrillation -stable, continue metoprolol and Xarelto 3. Alzheimer's disease -appears close to baseline Patient lives with house. He appears medically stable to discharge to home versus SNF tomorrow. Await PT evaluation for today. Time Spent With Patient Critical Care time: I spent a total of [] minutes of critical care time on this patient's care today; this time is exclusive of procedural time. Quality VTE Deep Vein Thrombosis/Pulmonary Embolism Present on Admission: No
[2021-12-30] MEDS: SODIUM CHLORIDE 0.9% FLUSH 10 ML IV (19:35)
[2021-12-30] MEDS: RIVAROXABAN 10 MG TABLET 20 MG PO (21:05)
[2021-12-30] MEDS: OLANZapine 10 MG VIAL 5 MG IM (21:57)
[2021-12-30] MEDS: MORPHINE 2 MG/ML INJ IV (22:41)
[2021-12-30] MEDS: LORazepam 2 MG/ML INJ 1 MG IV (22:59)
--- NOTE | 2021-12-30 23:03 | PC.NURSE ---
Addendum entered by Josie Duval R.N. 12/31/21 05:50: Pt linen and jonathan care provided. pt trying to punch staff. pt medicated with morphine 2 mg due to c/o abdominal pain with movement. Addendum entered by Josie Duval R.N. 12/31/21 04:22: Pt felt asleep around 0200. Original Note: pt is agitated tonight, keeps calling his eileen, pt was given zyprexa 5 mg im, along with morphine 2 mg, pt still trying to get out of bed. Pt urinated in the urinal 300 ml, pt also need his bed change. Orders taken for ativan 1 mg IVP. Bed alarm in place, will continue to monitor.
[2021-12-30] MEDS: MELATONIN 3 MG TABLET PO (23:09)
[2021-12-31] VITALS (7 sets, daily range): BP systolic 144–162; BP diastolic 74–87; PULSE 60–76; RESP 15–18; TEMP 36.2–37.3; O2SAT 91–97
[2021-12-31] MEDS: PIPERACILLIN/TAZO 3.375 GM in SODIUM CHLORIDE 0.9% 100 ML 25 ML IV (02:35)
[2021-12-31] MEDS: MORPHINE 2 MG/ML INJ IV (05:41)
--- NOTE | 2021-12-31 11:31 | P.PN_ITS ---
Subjective Subjective Date Patient Seen: 12/31/21 Interval history: 76-year-old male with Alzheimer's, atrial fibrillation on Xarelto status post open cholecystectomy on 12/27/2021. Patient tolerated half a burger for lunch yesterday. He is quite sleepy this morning after given IV morphine which was subsequently discontinued. Exam Vital Signs (past 8 hours): - 12/31/21 04:05 12/31/21 05:50 Pulse Rate 60 Respiratory Rate 18 Pulse Oximetry 96 91 Oxygen Delivery Method Room Air Oxygen Flow Rate 0 Narrative Exam Narrative: General:? Alert confused and has difficulty following simple commands Lungs:? Clear Abdomen:? Surgical incision clean and dry, no erythema or fluctuance Extremities: No edema Objective Labs Result Diagrams: 12/29/21 08:15 12/28/21 05:20 [facility] Medical History Chicken pox Chronic back pain Dementia Fractures Hearing loss Measles Memory problem Vision disorder Surgical History Anesthesia History of carpal tunnel repair History of eye surgery (~04/26/14) History of hemorrhoidectomy History of rotator cuff surgery History of thumb surgery Pacemaker (~03/04/18) Status post hernia repair (~08/01/08) Status post LASIK surgery of both eyes Family History Father History of heart disease Mother Diabetes mellitus Brother History of heart disease Social History marital status: household members: spouse Smoking Status: Former smoker alcohol intake: never Assessment & Plan Assessment & Plan narrative: 1.? Acute cholecystitis -status post open cholecystectomy -tolerating diet -surgery to remove drain prior to discharge 2. Atrial fibrillation -stable, continue metoprolol and Xarelto 3.? Alzheimer's disease -appears at baseline Patient lives with spouse.? He appears medically stable to discharge SNF vs home.? Await PT evaluation for today. Time Spent With Patient Critical Care time: I spent a total of [] minutes of critical care time on this patient's care today; this time is exclusive of procedural time. Quality VTE Deep Vein Thrombosis/Pulmonary Embolism Present on Admission: No
--- NOTE | 2021-12-31 11:33 | PT.IPTN ---
Current Diagnoses Acute cholecystitis (12/26/21) Encounter for follow-up examination after completed treatment for conditions other than malignant neoplasm (12/26/21) Surgery Performed Operation Date: 12/27/21 12:00 Actual Procedures p Laparoscopic Cholecystectomy(Not Applicable) - Jalen Alfredo MD Physical Therapy Treatment Note M2 PT-IP Current Condition Start: 12/28/21 14:03 Freq: NEEDED Status: Active Protocol: Document 12/30/21 11:46 MA (Rec: 12/30/21 13:14 MA [id number]) Physical Therapy Current Condition Current Condition Evaluation Date 12/28/21 Treatment Diagnosis s/p cholecystectomy; difficulty in walking Onset Date 12/26/21 M3 PT-IP Subjective Start: 12/28/21 14:03 Freq: NEEDED Status: Active Protocol: Document 12/31/21 11:13 KS (Rec: 12/31/21 12:02 KS [id number]) Subjective Physical Therapy Visit Type Type Treatment Note Visit Start Time 11:13 Visit Stop Time 11:33 Total Visit Minutes 20 Notes Co-treat w/ OT Number of FUR COAT SEWER Visits 3 Physical Therapy Visit Comments Patient Comments Spouse present for session. M4 PT-IP Mobility and Gait Start: 12/28/21 14:03 Freq: NEEDED Status: Active Protocol: Document 12/31/21 11:13 KS (Rec: 12/31/21 12:02 KS [id number]) PT-Bed Mobility Assessment Rolling Type of Rolling Log Rolling,Roll to Left Level of Assist Maximal Assistance Supine to Sit Supine to Sit Maximum Assistance,2 Person Assistance Scooting Scooting to Edge of Bed Maximum Assistance Scooting Up and Down in Bed Maximum Assistance PT-Transfer Assessment Sit to and From Stand Sit to and from Stand Maximum Assistance,2 Person Assistance,Use of Upper Extremities Equipment Transfer Assistive Device Gait Belt,Front Wheeled Walker Orthotic/Prosthetic Devices or Brace: No Transfers Transfer Destination Chair Transfer Technique pt ambulated w/ FWW Transfer Ability Level of Assist Maximum Assistance,2 Person Assistance,Use of Upper Extremities Comments Mobility Comments Pt asleep in bed upon arrival from therapy w/ in room. Pt difficult to fully arouse and Max A for logroll and Max A x2 for sup<>sit w/ difficulty following commands likely due to increased confusion possibly from medication. Max A for scooting EOB and Max A x2 w/ max cues for sit<>Stand. Pts feet slipping forward upon standing requiring feet to be blocked on both sides. Pt responded better to tactile cues than verbal cues this visit. He was able to ambulate ~3 ft to chair w/ FWW Max A x2 and max cues. Max A x2 for standing while using urinal and pt suddenly sat in chair w/ Max A to slow descent. Attempted to ambulate pt w/ chair follow, however pt became more agitated and cofused and was unable to perform. Pt left in chair w/ alarm on, in room and all needs in reach. Gait Assessment Gait Gait Assistance Required: Maximum Assistance,2 Person Assist Distance (Feet) 5 Assistive Devices Assistive Device Gait Belt,Front Wheeled Walker Orthotic/Prosthetic Devices or Brace: No Gait Deviations General Gait Pattern Ataxic,Decreased Stride Length ,Decreased Feet Clearance,Step -to Gait Factors Limiting Gait Function Factors Limiting Gait Function Decreased Activity Tolerance, Decreased Strength,Difficulty Following Directions,Limited Range of Motion,Pain,Poor Balance,Poor Safety Awareness Comments Gait Comments Pt only able to ambulate ~5 ft w/ FWW Max A x2 and max verbal and tactile cues. Pt w/ increased difficulty following commands and increased agitation this AM however also very difficult to wake up following medication last night. PT-Balance Assessment Sitting Balance and Reactions Static Sitting Balance Ability Fair Dynamic Sitting Balance Ability Fair Standing Balance and Reactions Static Standing Balance Ability Poor Dynamic Standing Balance Ability Poor Device Used FWW M5 PT-IP Objective Assessments Start: 12/28/21 14:03 Freq: NEEDED Status: Active Protocol: Document 12/28/21 12:50 AB (Rec: 12/28/21 14:18 AB [id number]) Orientation Orientation/Cognition Level of Alertness Confusional State Orientation Name Safety Awareness Decreased Safety Awareness Memory Description Short Term Impaired,Skilled Nursing Impaired Strength Comments Strength Comments unable to complete MMT due to pt unable to follow instructions M6 PT-IP Treatment Start: 12/28/21 14:03 Freq: NEEDED Status: Active Protocol: Document 12/31/21 11:13 KS (Rec: 12/31/21 12:02 KS [id number]) Physical Therapy Treatment Education Education Provided Precautions,Safety M7 PT-IP Assessment and Plan Start: 12/28/21 14:03 Freq: NEEDED Status: Active Protocol: Document 12/31/21 11:13 KS (Rec: 12/31/21 12:02 DANIELA [id number]) PT Summary Assessment and Plan Potential Rehabilitation Potential Fair Status of Condition at Evaluation Evolving Summary Impairments Pain,ROM,Strength,Balance, Coordination,Sensation,Tone, Cognition,Bed Mobility, Transfers,Gait,Activity Tolerance Progress Towards Goals Slow Progress due to Pain,Slow Progress due to Medical Issues,Slow Progress due to Activity Tolerance Assessment Summary Pt w/ increased confusion and agitation this date resulting in increased level of assist required. Max A x2 for bed mobility, transfers, and short distance ambulation from bed to chair. He responded better to tactile cues rather than verbal, but remains high fall risk due to poor cognition, decreased safety awareness, and improper use of FWW. Unsafe to go home at this time and will require SNF to improve safety and functional mobility. Goals Bed Mobility Goal Standby Assistance Transfer Goal Standby Assistance,Front Wheeled Walker Gait Goal Standby Assistance,Front Wheel Walker Gait Distance 100 Other Goals improve transfers, ambulation without AD SBA 200 ft up/down 2 steps CURTAIN FRAMER min Days to Meet Goals 10 Frequency of Treatment Frequency Of Treatment Once a Day Treatment Plan Physical Therapy Treatment Plan Bed Mobility Training,Transfer Training,Gait Training, Therapeutic Exercise,Balance Retraining,Post Op Education, Discharge Planning,Hot or Cold Pack,Neuromuscular Re-ed, Coordination Retraining,Manual Therapy Precautions Abdominal Surgery Precautions Log Roll,Lifting Restrictions, Gait Belt above Incisional Area Recommendations To Nursing Amount of Assist Needed 2 Person Assist Discharge Recommendations PT Discharge Recommendations Home with 16/06 Assist Available,Home Health,SNF Rehab,Home vs SNF Equipment Needed for Home Before FWW if not safe without AD Discharge Transportation Needs at Discharge Wheelchair/Cabulance
--- NOTE | 2021-12-31 11:33 | OT.IP.TRT ---
Current Diagnoses Acute cholecystitis (12/26/21) Encounter for follow-up examination after completed treatment for conditions other than malignant neoplasm (12/26/21) Surgery Performed Operation Date: 12/27/21 12:00 Actual Procedures p Laparoscopic Cholecystectomy(Not Applicable) - Jalen Alfredo MD Occupational Therapy Treatment Note M2 OT-IP Current Condition Start: 12/29/21 11:58 Freq: Status: Active Protocol: Document 12/29/21 11:30 CCC (Rec: 12/29/21 12:20 CCC [id number]) Occupational Therapy Current Condition Current Condition Evaluation Date 12/29/21 Treatment Diagnosis s/p open cholecystectomy Diagnosis Onset Date 12/26/21 M3 OT- IP Subjective and Pain Start: 12/29/21 11:58 Freq: Status: Active Protocol: Document 12/31/21 12:31 CGR (Rec: 12/31/21 12:38 CGR [id number]) OT- Subjective Occupational Therapy Visit Type Type Progress Note Visit Start Time 11:13 Visit Stop Time 11:33 Total Visit Minutes 20 Notes co-treat with P.T. OT Pain Assessment Pain When Pain Assessed At Rest Pain Present Pain Present Denied Pain M4 OT- IP ADL's Start: 12/29/21 11:58 Freq: Status: Active Protocol: Document 12/31/21 12:31 CGR (Rec: 12/31/21 12:38 CGR [id number]) OT [id number] Comments OT Self-Feeding Comments Not meal time OT ADL-Grooming Comments OT Grooming Comments not performed OT ADL-Oral Care Comments Oral Care Comments not performed OT ADL-Dressing General Eval Lower Body Dressing Ability Total Assistance Areas Needing Assistance Underpants/Brief,Socks Comments OT Dressing Comments Pt was able to follow commands to pickle cutter feet for threading brief OT ADL-Toileting General Evaluation Toileting Ability Total Assistance Comments OT Toileting Comments Pt began slapping therapists hands away and pulling towards groin. Pt asked if he needed to use the bathroom and pt nodded and assisted with urinal and removal of breif. Pt had small BM in brief that required total assist for back pericare OT ADL-Bathing Comments OT Bathing Comments not performed M5 OT- IP IADL's Start: 12/29/21 11:58 Freq: Status: Active Protocol: Document 12/29/21 11:30 CCC (Rec: 12/29/21 12:20 [facility] [id number]) OT-Instrumental Activities of Daily Living Home Safety Awareness Awareness of Need for Assistance at Home Decreased Awareness Ability to Problem Solve Emergency Unable to Problem Solve Situations Home Safety Comments Pt has Alzheimer's dementia and pt;s assist pt for all IADL and superivison for ADl needs. Medication Management Medication Management Caregiver Administers Money Management Money Management Caregiver Provides Assistance Meal Preparation Meal Preparation Caregiver Provides Assist Garment Presser Garment Presser Caregiver Provides Assist M6 OT- IP Functional Cognition Start: 12/29/21 11:58 Freq: Status: Active Protocol: Document 12/31/21 12:31 CGR (Rec: 12/31/21 12:38 CGR [id number]) Cognitive Factors Limiting Selfcare Function Cognitive Ability Level of Alertness Confusional State Attention Span Ability Unable to Focus,Unable to Sustain Attention Cognitive Comments Cognitive Assessment Comments Pt was unable to follow commands consistently and unable to voice needs on this date. M7 OT- IP Mobility and Balance Start: 12/29/21 11:58 Freq: Status: Active Protocol: Document 12/31/21 12:31 CGR (Rec: 12/31/21 12:38 CGR [id number]) OT- Bed Mobility Assessment Rolling Type of Rolling Roll to Left Level of Assistance Maximum Assistance,2 Person Assistance Supine to Sit Supine to Sit Assist Maximum Assistance,2 Person Assistance Scooting Scooting to Edge of Bed Maximum Assistance,2 Person Assistance OT-Transfer Assessment Sit to and From Stand Sit to and from Stand Maximum Assistance,2 Person Assistance Transfers Transfer Ability Maximum Assistance,2 Person Assistance Technique Transfer Destination Bed,Chair Transfer Technique Stand Step Pivot Devices Transfer Assistive Devices Gait Belt,Front Wheeled Walker Comments Mobility Comments Pt needs assist getting hands to walker handles. Unable to follow most commands but did stand inconsistenlty when told to do so. OT- Balance Assessment Sitting Balance and Reactions Static Sitting Balance Ability Poor Dynamic Sitting Balance Ability Poor M8 OT- IP Objective Assessments Start: 12/29/21 11:58 Freq: Status: Active Protocol: Document 12/29/21 11:30 [facility] (Rec: 12/29/21 12:20 [facility] [id number]) OT Strength Comments Strength Comments Not able to assesdue to dementia, however at least 3+/ 5 as able to assist during ADl and mobility needs. Initially pt having trouble to place his right hand up on the handle of the fww. OT- Coordination Assessment Comments Coordination Comments assist for set-up for grooming needs M9 OT- IP Assessment and Plan Start: 12/29/21 11:58 Freq: Status: Active Protocol: Document 12/31/21 12:31 CGR (Rec: 12/31/21 12:38 CGR [id number]) OT Summary Assessment and Plan Potential Rehabilitation Potential Fair Analytic Complexity at Evaluation Moderate Summary OT Impairments Balance,Coordination, Functional Cognition, Functional Mobility,Self- Feeding,Grooming,Dressing, Toileting,Bathing,Toilet Transfers,Shower Transfers, Activity Tolerance Progress Towards Goals Slow Progress due to Medical Issues,Slow Progress due to Activity Tolerance,Slow Progress due to Cognition Assessment Summary Per chart, pt had a difficult night and was medicated. Pt was sleeping soundly when OT entered and needs extra time and extra cues to follow commands inconsistently. Pt was able to participate minimally and was left in the chair at end of session, call button within reach and chair fall alarm armed. Goals Grooming Goal Standby Assistance Dressing Goal Moderate Assistance Toileting Goal Minimal Assistance Bathing Goal Minimal Assistance Toilet Transfer Goal Independent Shower Transfer Goal Independent Patient/Caregiver Education Goal Caregiver Independent Assisting Patient Days to Meet Goals 10 Frequency of Treatment Frequency Of Treatment Once a Day Treatment Plan OT Treatment Plan ADL Training,Functional Cognition Training,Functional Mobility,Patient/Family Education,Discharge Planning Other Treatment Recommendations and Next 2 person assist for safety Treatment Focus Discharge Recommendations OT Discharge Recommendations Home with 24/7 Assist Available,Home Health,SNF Rehab Home Equipment Needs shower chair Transportation Needs at Discharge Wheelchair/Cabulance
[2021-12-31] MEDS: MEMANTINE HCL 5 MG TABLET 10 MG PO ×2 (11:51→20:42)
[2021-12-31] MEDS: METOPROLOL IR 25 MG TABLET 12.5 MG PO ×2 (11:51→20:41)
[2021-12-31] MEDS: SODIUM CHLORIDE 0.9% FLUSH 10 ML IV ×2 (11:57→20:56)
--- NOTE | 2021-12-31 12:01 | CM.DPNOTE ---
Faxed snf referral packet per Vicky to [facility] & [facility]. Also emailed to Sadaf méndez & [facility]. Received conf. on all of them. Alma George CM Assist.
--- NOTE | 2021-12-31 15:40 | CM.DPC ---
DCP Cont: Discussed patient during team rounds. Hospitalist, Dr. Marino, is feeling that nursing home facilities should be attempted, as he is two person max assist according to therapy department. Did let hospitalist know that this may be challenging, due to patient's dementia, and well as being able to work with P.T, and safety. Let hospitalist know that care management will attempt to locate facilities. Met with patient's spouse, Linette, who is at bedside. Let her know that DC planning will look for places for spouse, but due to cognitive impairment, will be challenging. Explained that for Medicare to cover facility, patient needs to work with P.T. to have goals of getting stronger. Let her know that only option may be home with home health. She indicated that prior to patient being here, she has been able to manage him. She was given [facility] book already to look into private caregivers, which may take some time. Encouraged her to do so. Referrals were sent over to [facility], [facility], [facility], [facility], and [facility]. Radha at [facility] indicated that she will come over tomorrow to see patient and evaluate. Due to dementia, she is not sure that she can accept, but will see how he does tomorrow. Spoke to Aleshia at [facility], and they are currently not accepting admissions due to COVID. [facility] is not accepting admissions this week due to COVID. Left a message with [facility] to see if they were able to review referral, and with Becky at [facility], to see if she was able to review, for she is out of the office today. Did not yet send referral, but left a message with [facility] to see if they have any openings, as well as with [facility] in [place]. P: DCP to continue to follow. Will work on skilled facility, but if no facilities are available, patient will need to go home with [facility]. Asked spouse, Linette, if she has anyone that can assist at home, and she indicated, her daughter lives next door, she can help, but can't do any heavy lifting. Lakeshia Fallon, RN/Electronic Video Games Servicer
[2021-12-31] MEDS: RIVAROXABAN 10 MG TABLET 20 MG PO (20:41)
[2021-12-31] MEDS: MELATONIN 3 MG TABLET PO (20:55)
[2022-01-01 00:50] VITALS: PULSE 76; RESP 18; O2SAT 97
[2022-01-01 04:09] VITALS: PULSE 76; RESP 18; O2SAT 97
--- NOTE | 2022-01-01 10:01 | PC.NURSE ---
Patient sleeping comfortably on his side this morning in bed, he woke up briefly and asked the time. His reports he usually sleeps until 10 or so in the morning, so allowing patient to sleep in at this time. Bed alarm on, call light within reach.
[2022-01-01] MEDS: METOPROLOL IR 25 MG TABLET 12.5 MG PO ×2 (10:51→21:01)
[2022-01-01] MEDS: MEMANTINE HCL 5 MG TABLET 10 MG PO ×2 (10:53→21:01)
[2022-01-01 12:00] VITALS: BP 157/87; PULSE 75; RESP 20; TEMP 36.3; O2SAT 97
--- NOTE | 2022-01-01 12:19 | PT.IPTN ---
Current Diagnoses Acute cholecystitis (12/26/21) Encounter for follow-up examination after completed treatment for conditions other than malignant neoplasm (12/26/21) Surgery Performed Operation Date: 12/27/21 12:00 Actual Procedures p Laparoscopic Cholecystectomy(Not Applicable) - Jalen Alfredo MD Physical Therapy Treatment Note M2 PT-IP Current Condition Start: 12/28/21 14:03 Freq: NEEDED Status: Active Protocol: Document 12/30/21 11:46 MA (Rec: 12/30/21 13:14 MA [id number]) Physical Therapy Current Condition Current Condition Evaluation Date 12/28/21 Treatment Diagnosis s/p cholecystectomy; difficulty in walking Onset Date 12/26/21 M3 PT-IP Subjective Start: 12/28/21 14:03 Freq: NEEDED Status: Active Protocol: Document 01/01/22 11:56 [place] (Rec: 01/01/22 13:04 [facility] [id number]) Subjective Physical Therapy Visit Type Type Treatment Note Visit Start Time 11:56 Visit Stop Time 12:19 Total Visit Minutes 23 Notes Co-treat w/ OT Number of ROOFER VINYL COATING Visits 4 Physical Therapy Visit Comments Patient Comments Spouse present for session and caregiver training initiation . M4 PT-IP Mobility and Gait Start: 12/28/21 14:03 Freq: NEEDED Status: Active Protocol: Document 01/01/22 11:56 [place] (Rec: 01/01/22 13:04 [facility] [id number]) PT-Bed Mobility Assessment Rolling Type of Rolling Log Rolling,Roll to Left Level of Assist Maximal Assistance Supine to Sit Supine to Sit Moderate Assistance,Maximum Assistance Scooting Scooting to Edge of Bed Contact Guard Assistance PT-Transfer Assessment Sit to and From Stand Sit to and from Stand Minimal Assistance,1 Person Assistance,Use of Upper Extremities Equipment Transfer Assistive Device Gait Belt,Front Wheeled Walker Orthotic/Prosthetic Devices or Brace: No Transfers Transfer Destination Chair Transfer Technique pt ambulated w/ FWW Transfer Ability Level of Assist Moderate Assistance,1 Person Assistance,2 Person Assistance ,Use of Upper Extremities Comments Mobility Comments Pt in bed upon arrival from therapy. Mod/Max A and verbal and tactile cues for logroll to L and sidelying<>sit. Pt w/ improved ability to follow commands today and CGA for scooting EOB, Min A w/ tactle cues for hand placement for sit<>stand w/ FWW. Pt then ambulated ~25 ft w/ FWW and Min A max cues for FWW management and safety. Pt sat in chair and then sit<>stand again w/ FWW and providing cues and assist. Pt ambulated additional 20 ft w/ FWW and Min A and verbal and tactile cues from his before returning to chair to sit down. Pt left in chair w/ alarm on and all needs in reach. Gait Assessment Gait Gait Assistance Required: Minimum Assistance,1 Person Assist,2 Person Assist Distance (Feet) 45 Assistive Devices Assistive Device Gait Belt,Front Wheeled Walker Orthotic/Prosthetic Devices or Brace: No Gait Deviations General Gait Pattern Ataxic,Decreased Stride Length ,Decreased Feet Clearance,Step -to Gait Factors Limiting Gait Function Factors Limiting Gait Function Decreased Activity Tolerance, Decreased Strength,Difficulty Following Directions,Limited Range of Motion,Pain,Poor Balance,Poor Safety Awareness Comments Gait Comments Pt ambulated 45 ft total w/ FWW and Min A w/ PT and Min A x1-2 when ambulating w/ . Pt needs frequent verbal and tactile cues for FWW management. PT-Balance Assessment Sitting Balance and Reactions Static Sitting Balance Ability Fair Dynamic Sitting Balance Ability Fair Standing Balance and Reactions Static Standing Balance Ability Poor Dynamic Standing Balance Ability Poor Device Used FWW M5 PT-IP Objective Assessments Start: 12/28/21 14:03 Freq: NEEDED Status: Active Protocol: Document 12/28/21 12:50 AB (Rec: 12/28/21 14:18 AB [id number]) Orientation Orientation/Cognition Level of Alertness Confusional State Orientation Name Safety Awareness Decreased Safety Awareness Memory Description Short Term Impaired,Concrete Curer Impaired Strength Comments Strength Comments unable to complete MMT due to pt unable to follow instructions M6 PT-IP Treatment Start: 12/28/21 14:03 Freq: NEEDED Status: Active Protocol: Document 01/01/22 11:56 KS (Rec: 01/01/22 13:04 [facility] [id number]) Physical Therapy Treatment Education Education Provided Precautions,Safety Other Treatments Other Treatment Performed Discussed treatment and abdominal precautions with . Initiated caregiver training. M7 PT-IP Assessment and Plan Start: 12/28/21 14:03 Freq: NEEDED Status: Active Protocol: Document 01/01/22 11:56 KS (Rec: 01/01/22 13:04 [facility] [id number]) PT Summary Assessment and Plan Potential Rehabilitation Potential Fair Status of Condition at Evaluation Evolving Summary Impairments Pain,ROM,Strength,Balance, Coordination,Sensation,Tone, Cognition,Bed Mobility, Transfers,Gait,Activity Tolerance Progress Towards Goals Slow Progress due to Pain,Slow Progress due to Medical Issues,Slow Progress due to Activity Tolerance Assessment Summary Pt showed improvements w/ ability to follow direction, activity tolerance, and mobility this date. He was Mod /Max A for bed mobility, CGA for scooting, Min A x1-2 for sit<>stand and ambulation w/ FWW. Pts was able to provide pt w/ appropriate cues and assist during ambulation. He remains limited by confusion and weakness, however responded better to both verbal and tactile cues today. He remains a high fall risk and is not safe to be alone. Goals Bed Mobility Goal Standby Assistance Transfer Goal Standby Assistance,Front Wheeled Walker Gait Goal Standby Assistance,Front Wheel Walker Gait Distance 100 Other Goals improve transfers, ambulation without AD SBA 200 ft up/down 2 steps HAND TURNER min Days to Meet Goals 10 Frequency of Treatment Frequency Of Treatment Once a Day Treatment Plan Physical Therapy Treatment Plan Bed Mobility Training,Transfer Training,Gait Training, Therapeutic Exercise,Balance Retraining,Post Op Education, Discharge Planning,Hot or Cold Pack,Neuromuscular Re-ed, Coordination Retraining,Manual Therapy Precautions Abdominal Surgery Precautions Log Roll,Lifting Restrictions, Gait Belt above Incisional Area Recommendations To Nursing Amount of Assist Needed 1 Person Assist,2 Person Assist Discharge Recommendations PT Discharge Recommendations Home with 16/06 Assist Available,Home Health,SNF Rehab,Home vs SNF Equipment Needed for Home Before FWW if not safe without AD Discharge Transportation Needs at Discharge Wheelchair/Cabulance
--- NOTE | 2022-01-01 12:21 | OT.IP.TRT ---
Current Diagnoses Acute cholecystitis (12/26/21) Encounter for follow-up examination after completed treatment for conditions other than malignant neoplasm (12/26/21) Surgery Performed Operation Date: 12/27/21 12:00 Actual Procedures p Laparoscopic Cholecystectomy(Not Applicable) - Jalen Alfredo MD Occupational Therapy Treatment Note M2 OT-IP Current Condition Start: 12/29/21 11:58 Freq: Status: Active Protocol: Document 12/29/21 11:30 [facility] (Rec: 12/29/21 12:20 [facility] [id number]) Occupational Therapy Current Condition Current Condition Evaluation Date 12/29/21 Treatment Diagnosis s/p open cholecystectomy Diagnosis Onset Date 12/26/21 M3 OT- IP Subjective and Pain Start: 12/29/21 11:58 Freq: Status: Active Protocol: Document 01/01/22 12:22 [facility] (Rec: 01/01/22 12:35 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 Patient/Caregiver Goals Pt's trying to decide to take pt home versus SNF. OT Pain Assessment Pain When Pain Assessed During Mobility Pain Present Pain Present Denied Pain OT ADL-Bathing Comments OT Bathing Comments not performed M5 OT- IP IADL's Start: 12/29/21 11:58 Freq: Status: Active Protocol: Document 12/29/21 11:30 [facility] (Rec: 12/29/21 12:20 [facility] [id number]) OT-Instrumental Activities of Daily Living Home Safety Awareness Awareness of Need for Assistance at Home Decreased Awareness Ability to Problem Solve Emergency Unable to Problem Solve Situations Home Safety Comments Pt has Alzheimer's dementia and pt;s assist pt for all IADL and superivison for ADl needs. Medication Management Medication Management Caregiver Administers Money Management Money Management Caregiver Provides Assistance Meal Preparation Meal Preparation Caregiver Provides Assist Mixer Attendant Mixer Attendant Caregiver Provides Assist M6 OT- IP Functional Cognition Start: 12/29/21 11:58 Freq: Status: Active Protocol: Document 01/01/22 12:22 [facility] (Rec: 01/01/22 12:35 [facility] [id number]) Cognitive Factors Limiting Selfcare Function Cognitive Ability Level of Alertness Alert,Confusional State Attention Span Ability Unable to Focus,Unable to Sustain Attention Cognitive Comments Cognitive Assessment Comments Pt needing step by step concrete commands to follow and at times needing hand over hand assist. Pt needing MAX vc for hand placement and FWW safety. M7 OT- IP Mobility and Balance Start: 12/29/21 11:58 Freq: Status: Active Protocol: Document 01/01/22 12:22 [facility] (Rec: 01/01/22 12:35 [facility] [id number]) OT- Bed Mobility Assessment Supine to Sit Supine to Sit Assist Moderate Assistance,Maximum Assistance OT-Transfer Assessment Sit to and From Stand Sit to and from Stand Minimal Assistance Transfers Transfer Ability Minimal Assistance Technique Transfer Destination Bed,Chair Transfer Technique Stand Step Pivot Devices Transfer Assistive Devices Gait Belt,Front Wheeled Walker Comments Mobility Comments Pt's states to have pt sleep in the recliner if going home. LINDA to stand with FWW and assist to guide the FWW. Pt's able to demonstrate good safety and to be able to assist pt at this time. OT- Balance Assessment Sitting Balance and Reactions Static Sitting Balance Ability Good Standing Balance and Reactions Static Standing Balance Ability Fair M8 OT- IP Objective Assessments Start: 12/29/21 11:58 Freq: Status: Active Protocol: Document 12/29/21 11:30 [facility] (Rec: 12/29/21 12:20 [facility] [id number]) OT Strength Comments Strength Comments Not able to assessed due to dementia, however at least 3+/ 5 as able to assist during ADl and mobility needs. Initially pt having trouble to place his right hand up on the handle of the fww. OT- Coordination Assessment Comments Coordination Comments assist for set-up for grooming needs M9 OT- IP Assessment and Plan Start: 12/29/21 11:58 Freq: Status: Active Protocol: Document 01/01/22 12:22 [facility] (Rec: 01/01/22 12:35 [facility] [id number]) OT Summary Assessment and Plan Potential Rehabilitation Potential Good Analytic Complexity at Evaluation Moderate Summary OT Impairments Balance,Coordination, Functional Cognition, Functional Mobility,Self- Feeding,Grooming,Dressing, Toileting,Bathing,Toilet Transfers,Shower Transfers, Activity Tolerance Progress Towards Goals Slow Progress due to Activity Tolerance,Slow Progress due to Cognition Assessment Summary Pt much improved today and mainly needing LINDA with FWW and pt's able to assist with good safety. Of pt going home, pt's states to have pt sleep in the recliner. They already have a FWW , shower chair, and to get a BSC as well as a urinal. Also spoke to pt's of safety in the environment and to consider having another lock on the door so pt not able to get out on his own. Suggest home with 24/7 assist and home health versus possible short skilled rehab pending pt's progress and continued caregiver training with . Goals Grooming Goal Standby Assistance Dressing Goal Moderate Assistance Toileting Goal Minimal Assistance Bathing Goal Minimal Assistance Toilet Transfer Goal Independent Shower Transfer Goal Independent Patient/Caregiver Education Goal Caregiver Independent Assisting Patient Days to Meet Goals 9 Frequency of Treatment Frequency Of Treatment Once a Day Treatment Plan OT Treatment Plan ADL Training,Functional Cognition Training,Functional Mobility,Patient/Family Education,Discharge Planning Discharge Recommendations OT Discharge Recommendations Home with 24/7 Assist Available,Home Health,SNF Rehab Transportation Needs at Discharge Private Vehicle,Wheelchair/ Cabulance
--- NOTE | 2022-01-01 12:21 | CM.DPC ---
Addendum entered by Lakeshia Fallon R.N. 01/01/22 15:25: Went ahead and faxed face to face, orders, updated progress note, and latest P.T. note to [facility]. They will just need DC Summary upon discharge. Addendum entered by Lkaeshia Fallon R.N. 01/01/22 15:17: Radha from [facility] has declined patient. He was up with stand by assist with his walker, , Linette, was in the room. Called spouse, as she left for the day, and stated that he will be ready to discharge tomorrow, and home will need to be the plan with home health, for there are no other facilities that will accept. Spouse has been looking into the [place] for some caregiving hours, and had provider sign a form. Let her know that [facility] can include TEACHING YOUNG to assist with resources for caregivers, for has started the process. Spouse is prepared to take patient home tomorrow with [facility]. Have updated hospitalist, Dr. Marino. Called Yaya at [facility] and confirmed that he has referral, and let him know that he most likely will discharge tomorrow. Disciplines will include nursing, P.T, O.T, and TEACHING YOUNG. Printed out orders as well. Original Note: DCP Cont: Patient is medically ready for discharge according to hospitalist, but has indicated that patient needs skilled rehab. The challenge is his dementia, and has been agitated with staff, if they attempt to have him get up when he is not ready. Patient has a routine at home where he sleeps in until at least 10:00am, according to spouse. Spouse, Linette, has been at bedside. Radha from [facility] is willing to come over and look at patient. He was still recently in bed. [facility] also has referral. Have not yet heard back from [facility], and [facility] along with [facility] can't accept patients due to COVID, and Radha at [facility] indicated that they have no current beds. Had conversation with patient's , Linette, as was mentioned to her yesterday that patient may need to go home with home health. Reminded her that this is covered by patient's insurance, but could not be there daily in the caregiving role. She was already given the [facility] [employer] Book. Encouraged her to start calling some of the caregiving agencies today, for the only option most likely will be home with home health. She mentioned, she wants him home, does not want him going to a memory care unit. She did mention that [facility], but needs the doctor to sign a form. P: DCP to continue to follow. Hospitalist is requesting to continue locating a [place] facility for patient, but will be challenging due to his behaviors and him not wanting to participate in any therapies. [facility] does have the referral. Radha from [facility] will be here to see patient. Lakeshia Fallon RN/Steamfitter Supervisor
--- NOTE | 2022-01-01 16:23 | PM.PN.1 ---
Subjective Subjective Date Patient Seen: 01/01/22 Interval history: 76-year-old male with Alzheimer's, atrial fibrillation on Xarelto status post open cholecystectomy on 12/27/2021. Patient tolerating regular diet. He slept better last night and did not require medication for anxiety/agitation. He is baseline confused. has been present most of the time and supportive. Exam Vital Signs (past 8 hours): - 01/01/22 12:00 Temperature 97.3 F L Pulse Rate 75 Respiratory Rate 20 Blood Pressure 157/87 H Pulse Oximetry 97 Oxygen Delivery Method Room Air Oxygen Flow Rate 0 Narrative Exam Narrative: General:? Alert confused and has difficulty following simple commands Lungs:? Clear Abdomen:? Surgical incision clean and dry, no erythema or fluctuance Extremities: No edema Objective Labs Result Diagrams: 12/29/21 08:15 12/28/21 05:20 [facility] Medical History Chicken pox Chronic back pain Dementia Fractures Hearing loss Measles Memory problem Vision disorder Surgical History Anesthesia History of carpal tunnel repair History of eye surgery (~04/26/14) History of hemorrhoidectomy History of rotator cuff surgery History of thumb surgery Pacemaker (~03/04/18) Status post hernia repair (~08/01/08) Status post LASIK surgery of both eyes Family History Father History of heart disease Mother Diabetes mellitus Brother History of heart disease Social History marital status: household members: spouse Smoking Status: Former smoker alcohol intake: never Assessment & Plan Assessment & Plan narrative: 1.? Acute cholecystitis -status post open cholecystectomy -tolerating diet -surgery/RN to remove drain prior to discharge 2. Atrial fibrillation -stable, continue metoprolol and Xarelto 3.? Alzheimer's disease -appears at baseline Likely discharge home with home health services tomorrow Friday. Time Spent With Patient Critical Care time: I spent a total of [] minutes of critical care time on this patient's care today; this time is exclusive of procedural time. Quality VTE Deep Vein Thrombosis/Pulmonary Embolism Present on Admission: No
[2022-01-01 19:24] VITALS: BP 154/63; PULSE 72; RESP 22; TEMP 37; O2SAT 100
[2022-01-01 19:35] VITALS: PULSE 72; RESP 22; O2SAT 100
[2022-01-01] MEDS: RIVAROXABAN 10 MG TABLET 20 MG PO (21:00)
[2022-01-01] MEDS: MELATONIN 3 MG TABLET PO (21:30)
[2022-01-01 22:00] VITALS: O2SAT 100
[2022-01-02] VITALS (7 sets, daily range): BP systolic 150–161; BP diastolic 73–82; PULSE 64–73; RESP 18–20; TEMP 36.8; O2SAT 96–100
[2022-01-02] MEDS: MEMANTINE HCL 5 MG TABLET 10 MG PO (08:42)
[2022-01-02] MEDS: METOPROLOL IR 25 MG TABLET 12.5 MG PO (08:42)
--- NOTE | 2022-01-02 10:40 | PT.IPTN ---
Current Diagnoses Acute cholecystitis (12/26/21) Encounter for follow-up examination after completed treatment for conditions other than malignant neoplasm (12/26/21) Surgery Performed Operation Date: 12/27/21 12:00 Actual Procedures p Laparoscopic Cholecystectomy(Not Applicable) - Jalen Alfredo MD Physical Therapy Treatment Note M2 PT-IP Current Condition Start: 12/28/21 14:03 Freq: NEEDED Status: Active Protocol: Document 12/30/21 11:46 MA (Rec: 12/30/21 13:14 MA [id number]) Physical Therapy Current Condition Current Condition Evaluation Date 12/28/21 Treatment Diagnosis s/p cholecystectomy; difficulty in walking Onset Date 12/26/21 M3 PT-IP Subjective Start: 12/28/21 14:03 Freq: NEEDED Status: Active Protocol: Document 01/02/22 10:40 AB (Rec: 01/02/22 12:51 AB [id number]) Subjective Physical Therapy Visit Type Type Treatment Note Visit Start Time 10:40 Visit Stop Time 11:30 Total Visit Minutes 50 Number of TESTING CONSULTANT Visits 0 Physical Therapy Visit Comments Patient Comments spouse in room; pt agreed to get up M4 PT-IP Mobility and Gait Start: 12/28/21 14:03 Freq: NEEDED Status: Active Protocol: Document 01/02/22 10:40 AB (Rec: 01/02/22 12:51 AB [id number]) PT-Bed Mobility Assessment Rolling Type of Rolling Log Rolling Level of Assist Moderate Assistance,Maximal Assistance Supine to Sit Supine to Sit Maximum Assistance,1 Person Assistance PT-Transfer Assessment Sit to and From Stand Sit to and from Stand Moderate Assistance,1 Person Assistance,Use of Upper Extremities Equipment Transfer Assistive Device Gait Belt,Front Wheeled Walker Orthotic/Prosthetic Devices or Brace: No Transfers Transfer Destination Chair Transfer Technique ambulated Transfer Ability Level of Assist Moderate Assistance,1 Person Assistance,Use of Upper Extremities Comments Mobility Comments spouse in room and caregiver training conducted. educated pt and spouse regarding abdominal precautions. educated spouse on how to assist pt. spouse assisted pt with bed mobility log roll supine to sit max A and max cues. spouse is thinking of having pt sleep on a lift chair. educated spouse on how to use safety belt and how to assist pt use safety belt. spouse was able to put safety belt on pt. assist pt with sit to stand and ambulated pt in room ~ 30 ft. agreed to do platform step. spouse stated that they have 2 platform steps to enter the house and pt will stay on that level of the house. spouse assisted pt with ambulation to the hallway ~ 30 ft. completed up/down platform step max A using FWW. PT intially assisting pt and spouse and providing cues but spouse able to assist pt on 2nd set. pt ambulated back to his room and sat on the chair . positioned pt on chair. call light and table placed within reach. spouse stated that she feels comfortable assisting pt that they are going to be fine at home and has no other concerns. Gait Assessment Gait Gait Assistance Required: Moderate Assistance Distance (Feet) 30 Able to Maintain Weight Bearing Status Yes During Gait Assistive Devices Assistive Device Gait Belt,Front Wheeled Walker Orthotic/Prosthetic Devices or Brace: No Gait Deviations General Gait Pattern Decreased Stride Length, Decreased Feet Clearance, Lateral Trunk Lean,Step-to Gait Factors Limiting Gait Function Factors Limiting Gait Function Decreased Activity Tolerance, Decreased Strength,Difficulty Following Directions,Limited Range of Motion,Poor Balance, Poor Safety Awareness Stair Climbing Assessment Evaluation Level of Assist On Stairs Maximal Assistance,1 Person Assistance Devices Stair Climbing Assistive Devices Front Wheel Walker Technique/Endurance Stair Climbing Direction Ascend and Descend Stair Climbing Technique Step to Step Number of Steps Climbed 1 Stair Climbing Set # Repetitions (reps) 2 M5 PT-IP Objective Assessments Start: 12/28/21 14:03 Freq: NEEDED Status: Active Protocol: Document 12/28/21 12:50 AB (Rec: 12/28/21 14:18 AB [id number]) Orientation Orientation/Cognition Level of Alertness Confusional State Orientation Name Safety Awareness Decreased Safety Awareness Memory Description Short Term Impaired,Gage Maker Impaired Strength Comments Strength Comments unable to complete MMT due to pt unable to follow instructions M6 PT-IP Treatment Start: 12/28/21 14:03 Freq: NEEDED Status: Active Protocol: Document 01/02/22 10:40 AB (Rec: 01/02/22 12:51 AB [id number]) Physical Therapy Treatment Education Education Provided Safety M7 PT-IP Assessment and Plan Start: 12/28/21 14:03 Freq: NEEDED Status: Active Protocol: Document 01/02/22 10:40 AB (Rec: 01/02/22 12:51 AB [id number]) PT Summary Assessment and Plan Potential Rehabilitation Potential Fair Summary Impairments Pain,ROM,Strength,Balance, Coordination,Sensation,Tone, Cognition,Bed Mobility, Transfers,Gait,Activity Tolerance Progress Towards Goals Slow Progress due to Activity Tolerance,Slow Progress - Other Assessment Summary Caregiver training conducted and spouse was able to assist pt with mobility. recommending HHPT to improve strength and mobility independence. Goals Bed Mobility Goal Standby Assistance Transfer Goal Standby Assistance,Front Wheeled Walker Gait Goal Standby Assistance,Front Wheel Walker Gait Distance 100 Other Goals improve transfers, ambulation without AD SBA 200 ft up/down 2 steps MILLINERY WORKER min Days to Meet Goals 10 Frequency of Treatment Frequency Of Treatment Once a Day Treatment Plan Physical Therapy Treatment Plan Bed Mobility Training,Transfer Training,Gait Training, Therapeutic Exercise,Balance Retraining,Post Op Education, Discharge Planning,Hot or Cold Pack,Neuromuscular Re-ed, Coordination Retraining,Manual Therapy Precautions Abdominal Surgery Precautions Log Roll,Lifting Restrictions, Gait Belt above Incisional Area Recommendations To Nursing Amount of Assist Needed 1 Person Assist Discharge Recommendations PT Discharge Recommendations Home with 16/06 Assist Available,Home Health Transportation Needs at Discharge Private Vehicle
--- NOTE | 2022-01-02 12:31 | PM.DS.1 ---
History of Present Illness History of Present Illness Date Patient Seen: 01/02/22 Time Patient Seen: 10:32 Chief complaint: ill, not eating Narrative: Per Dr. Dempsey, 76yo male with a hx of hypertension, atrial fibrillation (on Xarelto), and Alzheimer's dementia that presents with RUQ abd pain. The patient is accompanied by his and visual training aide, Mrs. Hawley. They live together in [place]. She reports that his abd pain began 3 nights ago. He's had decreased PO intake since then. She denies that he's had any n/v/d. She denies any fever/chills, night sweats, CP, SOB. She does endorse worsening confusion since this all began. She reports that the patient had an extensive tobacco smoking hx but quit in the . She denies that he's ever been formally diagnosed with COPD. She reports he used to drink EtOH heavily in the past, too, but has not done so in many years. She denies any illicit drug use. She is unable to provide his family's medical hx. She endorses minor surgeries of tendon release, rotator cuff repair, etc., in the past. She denies any hx of intraabdominal surgeries. Discharge Providers Provider Date of admission: 12/26/21 14:58 Discharge Date: 01/02/22 Primary care physician: Jared Wu MD Consults: 12/26/21 10:53 Consult to General Surgery Stat Comment: Consulting Provider: Michel Ray Reason for consultation: Acute cholecystitis Has provider been notified: Yes 12/28/21 10:44 Consult to Occupational Therapy Evaluate & Treat Comment: Physician Instructions: Evaluate and treat Consult to Physical Therapy Evaluate & Treat Comment: Physician Instructions: Evaluate and Treat 01/01/22 15:13 Consult to Home Health Routine Comment: Reason For Exam: Home Health RN, P.T, O.T, 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 Acute cholecystitis 2. Atrial fibrillation, chronic, persistent 3.? Alzheimer's disease with behavioral disturbance 4. Acute delirium, resolved, likely secondary to combination of alzheimer's disease, hospitalization, and medications. Hospital Course: This is a 76-year-old admitted with acute cholecystitis. He underwent open cholecystectomy. He did have a history of atrial fibrillation advanced Alzheimer's disease with dementia. He initially did well but developed some acute delirium likely secondary to a combination of Alzheimer's disease, hospital delirium, as well as a possible reaction with pain medications. Opiate pain medications were further held and patient had further improvement. Rehab placement was attempted but unable to be obtained the patient was discharged home with home health. Time Spent with Patient Time spent: Less than 30 minutes Exam Vital Signs (past 8 hours): - 01/02/22 04:40 01/02/22 06:00 01/02/22 10:00 Temperature Pulse Rate 64 Respiratory Rate 19 Blood Pressure Pulse Oximetry 100 100 100 01/02/22 10:52 Temperature 98.3 F Pulse Rate 73 Respiratory Rate 18 Blood Pressure 150/73 H Pulse Oximetry 100 Oxygen Delivery Method Room Air Oxygen Flow Rate 0 Narrative Exam Narrative: General:? Alert confused and has difficulty following simple commands Lungs:? Clear Abdomen:? Surgical incision clean and dry, no erythema or fluctuance Extremities: No edema Objective Labs Result Diagrams: 12/29/21 08:15 12/28/21 05:20 [facility] Medical History Chicken pox Chronic back pain Dementia Fractures Hearing loss Measles Memory problem Vision disorder Surgical History Anesthesia History of carpal tunnel repair History of eye surgery (~04/26/14) History of hemorrhoidectomy History of rotator cuff surgery History of thumb surgery Pacemaker (~03/04/18) Status post hernia repair (~08/01/08) Status post LASIK surgery of both eyes Family History Father History of heart disease Mother Diabetes mellitus Brother History of heart disease Social History marital status: household members: spouse Smoking Status: Former smoker alcohol intake: never Discharge Plan Discharge Plan Patient Disposition: Home Health Service Provider Discharge Comment: You were admitted to the hospital with acute cholecystitis. Prolonged hospital stay afterward, but should have no significant halfway changes afterward. Discharge orders & Medications Prescriptions: Continued Xarelto 20 mg tablet 20 mg PO DAILY 0RF Rx Instructions: must administer with evening meal metoprolol tartrate 25 mg tablet 12.5 mg PO BID 0RF valacyclovir 500 mg tablet 500 mg PO DAILY Qty: 90 1RF memantine [Namenda] 10 mg tablet 10 mg PO BID 0RF melatonin 3 mg capsule 3 mg PO BEDTIME PRN (Reason: Sleep) 0RF ondansetron 4 mg tablet,disintegrating 4 mg PO Q6H PRN (Reason: nausea and vomiting) Qty: 14 0RF Follow up/Referrals: Jared Wu MD [Primary Care Provider] - Michel Ray MD [Physician] - 3-5 Days (follow up open cholecystectomy.) Diet/Activity/Treatments Diet: Diet as Tolerated Diet comment: As tolerated Activity: As tolerated Visit Report/Discharge Packet Instructions: DI for Open Cholecystectomy, DI for Laparoscopy, [facility]: Wound Care Discharge Data Primary Care Provider: Jared Wu Quality VTE Deep Vein Thrombosis/Pulmonary Embolism Present on Admission: No
--- NOTE | 2022-01-02 12:57 | OT.IP.TRT ---
Current Diagnoses Acute cholecystitis (12/26/21) Encounter for follow-up examination after completed treatment for conditions other than malignant neoplasm (12/26/21) Surgery Performed Operation Date: 12/27/21 12:00 Actual Procedures p Laparoscopic Cholecystectomy(Not Applicable) - Jalen Alfredo MD Occupational Therapy Treatment Note M2 OT-IP Current Condition Start: 12/29/21 11:58 Freq: Status: Active Protocol: Document 12/29/21 11:30 [facility] (Rec: 12/29/21 12:20 [facility] [id number]) Occupational Therapy Current Condition Current Condition Evaluation Date 12/29/21 Treatment Diagnosis s/p open cholecystectomy Diagnosis Onset Date 12/26/21 M3 OT- IP Subjective and Pain Start: 12/29/21 11:58 Freq: Status: Active Protocol: Document 01/02/22 12:33 [facility] (Rec: 01/02/22 13:08 [facility] [id number]) OT- Subjective Occupational Therapy Visit Type Type Treatment Note Visit Start Time 11:33 Visit Stop Time 11:57 Total Visit Minutes 24 Occupational Therapy Visit Comments Patient Comments Pt wanting to get dressed so able to go home. Pt's present for caregiver training . Patient/Caregiver Goals To go home. OT Pain Assessment Pain When Pain Assessed At Rest Pain Present Pain Present Denied Pain M4 OT- IP ADL's Start: 12/29/21 11:58 Freq: Status: Active Protocol: Document 01/02/22 12:33 [facility] (Rec: 01/02/22 13:08 [facility] [id number]) OT [id number] Comments OT Self-Feeding Comments Not meal time OT ADL-Grooming Comments OT Grooming Comments not performed OT ADL-Dressing General Eval Upper Body Dressing Ability Minimal Assistance Lower Body Dressing Ability Maximum Assistance Areas Needing Assistance Socks,Shoes Comments OT Dressing Comments Pt educated on follow proper body painter while assist pt for ADL needs. At this time due to his pain will be needing assist to get clothing over his feet. OT ADL-Bathing Comments OT Bathing Comments Pt's states to just do sponge bathing for now. M5 OT- IP IADL's Start: 12/29/21 11:58 Freq: Status: Active Protocol: Document 12/29/21 11:30 [facility] (Rec: 12/29/21 12:20 [facility] [id number]) OT-Instrumental Activities of Daily Living Home Safety Awareness Awareness of Need for Assistance at Home Decreased Awareness Ability to Problem Solve Emergency Unable to Problem Solve Situations Home Safety Comments Pt has Alzheimer's dementia and pt's assist pt for all IADL and supervision for ADl needs. Medication Management Medication Management Caregiver Administers Money Management Money Management Caregiver Provides Assistance Meal Preparation Meal Preparation Caregiver Provides Assist Claims Support Specialist Claims Support Specialist Caregiver Provides Assist M6 OT- IP Functional Cognition Start: 12/29/21 11:58 Freq: Status: Active Protocol: Document 01/02/22 12:33 [facility] (Rec: 01/02/22 13:08 [facility] [id number]) Cognitive Factors Limiting Selfcare Function Cognitive Comments Cognitive Assessment Comments Pt needing cues to redirections, safety , and to follow commands for ADL and mobility needs. M7 OT- IP Mobility and Balance Start: 12/29/21 11:58 Freq: Status: Active Protocol: Document 01/02/22 12:33 [facility] (Rec: 01/02/22 13:08 [facility] [id number]) OT-Transfer Assessment Sit to and From Stand Sit to and from Stand Standby Assistance,Contact Guard Assistance,1 Person Assistance Comments Mobility Comments Pt able to stand with CGA to SBA with FWW. Pt's able to kassidy/doff the gait belt with good safety. OT- Balance Assessment Sitting Balance and Reactions Static Sitting Balance Ability Good Standing Balance and Reactions Static Standing Balance Ability Fair M8 OT- IP Objective Assessments Start: 12/29/21 11:58 Freq: Status: Active Protocol: Document 12/29/21 11:30 [facility] (Rec: 12/29/21 12:20 [facility] [id number]) OT Strength Comments Strength Comments Not able to assess due to dementia, however at least 3+/ 5 as able to assist during ADl and mobility needs. Initially pt having trouble to place his right hand up on the handle of the fww. OT- Coordination Assessment Comments Coordination Comments assist for set-up for grooming needs M9 OT- IP Assessment and Plan Start: 12/29/21 11:58 Freq: Status: Active Protocol: Document 01/02/22 12:33 [facility] (Rec: 01/02/22 13:08 [facility] [id number]) OT Summary Assessment and Plan Potential Rehabilitation Potential Good Analytic Complexity at Evaluation Moderate Summary Progress Towards Goals Progressing Toward Goals Assessment Summary Pt's able to assist pt for all ADl and mobility needs today. Agreed would be best for pt's to get a bed alarm at night and also had her take a urinal for home use . Pt's still looking into getting caregivers to assist in the house. Discharge Recommendations OT Discharge Recommendations Home with 24/ Assist Available,Home Health
--- NOTE | 2022-01-02 13:10 | PC.NURSE ---
A&Ox1. Very confused r/t dementia. Requires reminders and redirection frequently. Compulsive and will attempt to get out of bed on own. Bed and chair alarm on at all times. at bedside which helps a lot with redirection and keeping the patient safely in bed or in his chair. PT and OT evaluated and given okay to be discharge home with home health and care from his . Incision dressing removed by patient. This technical proposal writer reapplied the dressings. [place] in place and skin around incision pink, without drainage or redness. IV removed. Discharge instructions reviewed.
--- NOTE | 2022-01-02 13:33 | CM.DPC ---
DCP Discharge Home with HH Per MD, pt medically stable to d/c home with HH today and no identified barriers to discharge at this time. Per PT/OT, worked with pt and spouse and agreeable with plan of home with HH but encourage additional supports. Spouse was given PP [facility] resources and local supports and aware that she will need to start contacting them soon as they can take a while to be secured in the home. Per RN, pt needs fair amount of redirection and continues to have dementia confusion but spouse assist has been very helpful. RN provided pt/spouse with d/c instructions for home this afternoon. SW called [facility] and updated on pt d/c and confirmed they only need d/c summary and SW will fax when d/c summ finalized. Plan: Pt to d/c home today via spouse POV and new [facility] services set up. KIET Hein
== END 2022-01-02 13:20 | disposition home or self-care (01) | DRG 414 ==
LOC: ED 14:27 → AC 14:59
PROVIDERS: Surgery; Admitting Provider Student in an Organized Health Care Education/Training Program; Emergency Provider Emergency Medicine; PCP Student in an Organized Health Care Education/Training Program; Referring Provider Emergency Medicine; Visit Provider Student in an Organized Health Care Education/Training Program
PROC: 0FT44ZZ Resection of Gallbladder, Percutaneous Endoscopic Approach (ICD-10-PCS; CPT 47562; principal; 2021-12-27 12:00)
DX: K81.0 Acute cholecystitis (principal); G92.9 Unspecified toxic encephalopathy; I96 Gangrene, not elsewhere classified; N17.9 Acute kidney failure, unspecified; G30.9 Alzheimer's disease, unspecified; F02.80 Dementia in other diseases classified elsewhere, unspecified severity, without behavioral disturbance, psychotic disturbance, mood disturbance, and anxiety; K82.A1 Gangrene of gallbladder in cholecystitis; R07.81 Pleurodynia; I48.91 Unspecified atrial fibrillation; I10 Essential (primary) hypertension; Z20.822 Contact with and (suspected) exposure to COVID-19; Z87.891 Personal history of nicotine dependence; Z79.01 Long term (current) use of anticoagulants; Z95.0 Presence of cardiac pacemaker
CPT/HCPCS: 36415; 47600; 71101; 74177; 80053; 82550; 83605; 83690; 83735; 84145; 84484; 85025; 85610; 85730; 87040; 87635; 93005; 94760; 94762; 96361; 96365; 96374; 96375; 97116; 97162; 97166; 97530; 97535; 99233; 99284; 99285; C9803; J0696; J1170; J2060; J2270; J2405; J2543; J2704; J3010; J3430; Q9967; S0166

== ENCOUNTER → 2024-03-11 15:16 | Outpatient (CLI) | payer MEDICARE, OTHER, SELFPAY ==
[2021-12-26 14:59] VITALS: BMI 27.5
--- NOTE | 2024-03-11 15:47 | DI.RAD.S_ITS ---
PROCEDURE: XR LUMBAR SPINE 2-3V INDICATIONS: LOW BACK PAIN TECHNIQUE: 3 views of the lumbar spine were acquired. COMPARISON: [facility], , L-SPINE 2-3 VIEWS, 06/24/2015, 12:45. FINDINGS: Bones: 5 edh-uvh-yfixhub vertebrae are present. No acute fracture of the lumbar spine. Partially visualized compression fracture at T11 appear similar to prior. Redemonstration of grade 1-2 anterolisthesis of L5 on S1 with bilateral pars defects. Marked degenerative changes at this level with disc height loss, osteophytosis and facet arthropathy. Remainder of the spine demonstrates mild to moderate multilevel degenerative changes with osteophytosis, disc height loss, facet arthropathy and osseous neural foraminal narrowing. No suspicious bony lesions. Soft tissues: Overlying bowel gas pattern is normal. No suspicious soft tissue calcifications. Marked calcification of the abdominal aorta. Surgical clips in the left upper quadrant. Partially visualized cardiac pacer wire. IMPRESSION: 1. No acute bony abnormality. Partially visualized compression fracture at T11 appears similar to prior. 2. Multilevel degenerative changes, worse at L5-S1, where there is grade 1-2 anterolisthesis with associated pars defect. Degenerative changes have mildly progressed compared to prior dated June 24, 2015. 3. Marked calcification of the abdominal aorta. Dictated by: Sasha Richard M.D. on 03/11/2024 at 17:53 Approved by: Sasha Richard M.D. on 03/11/2024 at 17:56
[2024-03-12 12:24] LABS: Add Manual Diff / Slide Review NO; Basophils Absolute Auto 100 /uL (0-100); Basophils Percent Auto 1.4 % (0-2); Eosinophils Absolute Auto 200 /uL (0-450); Eosinophils Percent Auto 2.9 % (2-4); Hematocrit 42.5 % (41-53); Hemoglobin 14.4 g/dL (13.5-17.5); Lymphocytes Absolute Auto 2400 /uL (1100-4500); Lymphocytes Percent Auto 37.3 % (25-40); Mean Corpuscular HGB Conc 33.8 % (30-36); Mean Corpuscular Hemoglobin 30.5 PG (26-34); Mean Corpuscular Volume 90.3 fL (80-100); Monocytes Absolute Auto 500 /uL (0-900); Monocytes Percent Auto 7.7 % (3-14); Neutrophils Absolute Auto 3300 /uL (1500-7000); Neutrophils Percent Auto 50.7 % (50-75); Platelet Count 217 X10^3/uL (150-400); Red Cell Distribution Width 13.6 % (11.6-14.8); White Blood Cell Count 6.5 X10^3/uL (4.5-11.0)
[2024-03-12 12:42] LABS: Alanine Aminotransferase 15 IU/L (<50); Albumin 4.2 g/dL (3.5-5.0); Albumin Globulin Ratio 1.6 (1.0-2.8); Alkaline Phosphatase 61 U/L (38-126); Aspartate Aminotransferase 22 IU/L (17-59); BUN Creatinine Ratio 15.2 (6-22); Bilirubin Total 1.2 mg/dL (0.2-1.3); Blood Urea Nitrogen 14 mg/dL (9-20); Calcium 9.4 mg/dL (8.4-10.2); Carbon Dioxide 22 mmol/L (22-32); Chloride 111 mmol/L (98-107); Estimated Glomerular Filt Rate > 60 mL/min (>60); Globulin 2.7 g/dL (1.7-4.1); Glucose 96 mg/dL (80-110); HEMOLYSIS < 15 (0-50); Potassium 4.3 mmol/L (3.4-5.1); Sodium 140 mmol/L (137-145); Total Protein 6.9 g/dL (6.3-8.2)
[2024-03-12 13:08] LABS: TSH w/ Reflex to FT4 3.61 uIU/mL (0.47-4.68)
== END ==
PROVIDERS: PCP Family Medicine; Referring Provider Family Medicine; Visit Provider Family Medicine
DX: M48.54XA Collapsed vertebra, not elsewhere classified, thoracic region, initial encounter for fracture (principal); M47.817 Spondylosis without myelopathy or radiculopathy, lumbosacral region; M43.17 Spondylolisthesis, lumbosacral region; I70.0 Atherosclerosis of aorta; N40.0 Benign prostatic hyperplasia without lower urinary tract symptoms; I10 Essential (primary) hypertension; M54.9 Dorsalgia, unspecified
CPT/HCPCS: 36415; 72100; 80053; 84443; 85025

== ENCOUNTER → 2024-05-17 12:13 | Outpatient (CLI) | payer MEDICARE, OTHER, SELFPAY ==
[2021-12-26 14:59] VITALS: BMI 27.5
--- NOTE | 2024-05-17 12:14 | DI.CT.S_ITS ---
PROCEDURE: CT LUMBAR SPINE WO CON INDICATIONS: Chronic Progressive LBP with L5/S1 Spondy TECHNIQUE: Noncontrast 3 mm thick sections acquired from the T12 level to the sacrum. Sagittal and coronal reformats were constructed. For radiation dose reduction, the following was used: automated exposure control. COMPARISON: [facility], CR, XR LUMBAR SPINE 2-3V, 03/11/2024, 15:41. FINDINGS: Image quality: Excellent. Bones: There is normal bony alignment. No acute vertebral body compression fractures. Old cqcg-so-lqmmotyt T11 compression. No suspicious lytic or blastic bony lesions. No pars defects. T12-L1: No canal stenosis or foraminal stenosis. L1-L2: No canal stenosis or foraminal stenosis. L2-L3: Mild facet hypertrophy. Epidural lipomatosis. Borderline canal stenosis. No foraminal nerve root impingement. L3-L4: Disc bulge. Facet and ligament hypertrophy. Epidural lipomatosis. Ellj-ba-zjshubif canal stenosis. L4-L5: Disc bulge. Facet hypertrophy. No canal stenosis or foraminal stenosis L5-S1: Bilateral L5 pars defects with anterolisthesis of L5 on S1 measuring 14 mm. Severe bilateral foraminal narrowing with bilateral foraminal L5 nerve root impingement. No central canal stenosis. Soft tissues: No retroperitoneal masses or hematomas. Visualized aorta is normal in caliber. Pacemaker. IMPRESSION: 1. Bilateral L5 pars defects with 14 mm anterolisthesis of L5 on S1, severe bilateral foraminal narrowing, and bilateral foraminal L5 nerve root impingement. 2. Multilevel underlying facet arthropathy. 3. Canal stenosis is borderline at L2-L3 and [id number] at L3-L4. Dictated by: Hi Carrasquillo M.D. on 05/17/2024 at 16:29 Approved by: Hi Carrasquillo M.D. on 05/17/2024 at 16:35
== END ==
PROVIDERS: PCP Family Medicine; Referring Provider Physical Medicine & Rehabilitation; Visit Provider Physical Medicine & Rehabilitation
DX: M43.17 Spondylolisthesis, lumbosacral region (principal); M48.07 Spinal stenosis, lumbosacral region; M48.061 Spinal stenosis, lumbar region without neurogenic claudication; M47.816 Spondylosis without myelopathy or radiculopathy, lumbar region
CPT/HCPCS: 72131

== ENCOUNTER 2024-07-12 07:20 | Outpatient (RCR) | payer MEDICARE, OTHER, SELFPAY ==
[2021-12-26 14:59] VITALS: BMI 27.5
--- NOTE | 2024-07-12 09:18 | PT.OIE ---
Current Diagnoses Spondylolisthesis, lumbosacral region (07/12/24) Spinal stenosis, lumbar region with neurogenic claudication (07/12/24) Past Medical History (Last Updated 06/07/24 @ 15:04 by Isirdo Mcguire DO) Actinic keratoses Alzheimer's dementia BPH (benign prostatic hyperplasia) Chicken pox Chronic back pain Dementia Facet arthropathy, lumbar Fractures Hearing loss History of compression fracture of spine Insomnia Measles Medication refill Microscopic hematuria Paroxysmal atrial fibrillation Sick sinus syndrome Spinal stenosis, lumbar region with neurogenic claudication Spondylolisthesis at L5-S1 level T11 vertebral fracture Vision disorder Past Surgical History (Last Reviewed 06/07/24 @ 14:52 by Isidro Mcguire DO) Anesthesia History of carpal tunnel repair History of eye surgery (~04/26/14) History of hemorrhoidectomy History of rotator cuff surgery History of thumb surgery Pacemaker (~03/04/18) Status post hernia repair (~08/01/08) Status post LASIK surgery of both eyes Visit Care Team Role Provider Type Jason Ramos DO Family Provider Physician Primary Care Provider Specialty: Family Practice Address: [address] [place] [address], [facility] Email: [email or web address] Isidro Mcguire DO Attending Provider Physician Referring Provider Specialty: Interventional Radiology Physiatry Pain Management Address: [address] [place] [address], [address] Email: [email or web address] Physical Therapy Initial Evaluation PT-OP-A Visit Information Start: 07/11/24 19:00 Freq: Status: Active Protocol: Document 07/12/24 07:33 LRN (Rec: 07/12/24 09:16 LRN [id number]) Out-Patient Physical Therapy Visit Information Visit Information Visit Type Initial Evaluation Visit Note Pt is attended in therapy with his who is his caregiver . Visit Start Time 07:33 Visit Stop Time 08:05 Visit Number 1 Evaluation Information Evaluation Date 07/12/24 Precautions Precautions Per spouse, pt has L5 fracture , see report from x-ray below. Alzheimers, pt at times physically inappropriate with female PT thinking he is being affectionate to his . PT-OP-B Current Condition Start: 07/11/24 19:00 Freq: Status: Active Protocol: Document 07/12/24 07:33 LRN (Rec: 07/12/24 09:16 LRN [id number]) Current Condition History of Current Condition Onset Date Worsening of pain in past 3 months. Current Complaints Lower back pain. History of Current Condition Pt states pt has Alzheimers and that MD thought PT might be helpful. states his L5 is fractured and is sliding off the other vertebrae. Pt walking around the room during initial H&P during information gathering. states pt's pain has been worsening for the past 3 months, stating sometimes his pain has been so bad that he walks crooked. Pt showed much affection to his . Prior Treatments and Tests Chiropractors. Pain medications. Future Testing and Treatments Planned Possible cortisone injection ionto the low back. Developmental History Developmental History X-ray report indicates: Disc Bulge L3-L4, L4-L5, Bilateral L5 pars defects with anterolisthesis of L5 on S1 measuring 14 mm. Severe bilateral foraminal narrowing with bilateral foraminal L5 nerve root impingement. Treatment Goals Patient/Caregiver Goals Pt's states the goal is to help the back pain. Personal Factors Other Personal Factors That May Effect PMH: Pacemaker, Alzheimer's 1 Therapy/Recovery /2017. On blood thinners, L shoulder RC tear repaired, Double vision surgery, carpal tunnel surgery ari wrists, hernia surgery. Pt demonstrating inappropriate behavior of trying to kiss PT . states he thinks everyone is his that he wants to kiss. PT-OP-C Subjective Start: 07/11/24 19:00 Freq: Status: Active Protocol: Document 07/12/24 07:33 LRN (Rec: 07/12/24 09:16 [facility] [id number]) Patient Questionnaires Oswestry Low Back Index Oswestry Score 34/50 - 68/100 OP-PT Pain Assessment Pain Assessment Grid Paper Pain Assessment Grid Completed Yes Location Low back Pain Location Details R SIJ and low back w/palp. Pain diagram shows pain across low back. Intensity 7 Scale Used Numeric (0 - 10) Comments Pain Comments Pain rating given by spouse. Pt was not able to understand pain rating request. PT-OP-G Mobility & Gait Start: 07/11/24 19:00 Freq: Status: Active Protocol: Document 07/12/24 07:33 LRN (Rec: 07/12/24 09:16 LRN [id number]) OP Mobility Evaluation Bed Mobility Rolling Independent Supine to and from Sit Independent, impulsive. Transfers Sit to Stand Independent, impulsive. Bed to Chair Transfers Attempt to sit in chair, pt sat on armrests. OP Gait Assessment Gait Gait Assistance Required: Contact Guard Assist,1 Person Assist Distance (Feet) 100 Able to Maintain Weight Bearing Status Yes During Gait Assistive Devices Assistive Device None Comments Gait Comments Spouse assisted pt with gait, primarily for guidance. PT-OP-H Neuro Start: 07/11/24 19:00 Freq: Status: Active Protocol: Document 07/12/24 07:33 LRN (Rec: 07/12/24 09:16 LRN [id number]) Sensation Evaluation Comments Summary Comments Not able to assess due to pt's poor attention span and not able to understand quesrioning . PT-OP-J Posture/Palpation/Skin Start: 07/11/24 19:00 Freq: Status: Active Protocol: Document 07/12/24 07:33 LRN (Rec: 07/12/24 09:16 LRN [id number]) Posture Evaluation Position Standing Head/C-Spine Posture Forward Head T-Spine Posture Flattened L-Spine Posture Flattened Pelvis Posture Posterior Tilted Palpation Assessment Location Low back Palpation Location R SIJ & low back Palpation Findings Tenderness Palpation Details Pt verbalized pain primarily in R SIJ PT-OP-K Range of Motion Start: 07/11/24 19:00 Freq: Status: Active Protocol: Document 07/12/24 07:33 LRN (Rec: 07/12/24 09:16 LRN [id number]) Lumbar Spine Range of Motion Lumbar Spine Active Degrees Comments Not able to assess. Pt not able to follow directions. Hip Goniometric Range of Motion Hip Right Passive Comments Not able to assess, pt not tolerating static positioning long enough to assess. Left Passive Comments Not able to assess, pt not tolerating static positioning long enough to assess. PT-OP-M Strength Start: 07/11/24 19:00 Freq: Status: Active Protocol: Document 07/12/24 07:33 LRN (Rec: 07/12/24 09:16 LRN [id number]) Trunk Strength Trunk Manual Muscle Testing Comments Not able to assess. Pt not able to follow directions. Hip Strength Hip Manual Muscle Testing Right Comments Not able to assess. Pt not able to follow directions. Left Comments Not able to assess. Pt not able to follow directions. PT-OP-Q Treatments Start: 07/11/24 19:00 Freq: Status: Active Protocol: Document 07/12/24 07:33 LRN (Rec: 07/12/24 09:16 LRN [id number]) Self-Care/Home Management Treatment Education Patient Education Body Mechanics,Pain Management ,Posture Caregiver Education Pt spouse educated in pain management strategies: Heat ice to low back, nighttime positioning with use of pillows to support the low back. Pt spouse educated in log roll method for transfers in/out of bed to minimize back pain. Pt spouse educated in body mechanics to minimize pain: avoid twisting, lifting heavy objects, trunk flexion. Other Education Discussed results of evaluation, goals, treatment, and plan of care (POC) with pt and spouse (caregiver); pt did not understand reason for being at therapy appt. Pt spouse agreeable to evaluation and plan of care of education in ways for her to assist pt to minimize pain. Discussed with pt spouse, use of lumbar support for pt to minimize LBP. Discussed spouse need for rest and sleep. PT-OP-T Assessment and Plan Start: 07/11/24 19:00 Freq: Status: Active Protocol: Document 07/12/24 07:33 LRN (Rec: 07/12/24 09:16 LRN [id number]) Physical Therapy Assessment Rehab Potential Rehabilitation Potential Poor Evaluation Complexity Number of Personal Factors/Comorbidities 1-2 Number of Body Systems Impaired 3 Clinical Presentation at Evaluation Evolving Impairments Impairments Pain,Posture,Transfers Goals Two Impairment LBP rated 7/10 by spouse Senior Care Goal (LTG) Spouse, caregiver education in use of modalities for pain management and best practice body mechanics for pt to minimize LBP. LTG Duration 07/12/24 One Impairment Transfers impulsively Field Representative Goal (LTG) Pt spouse will be educated in log roll transfer in/out of bed and night time positioning to minimize LBP. LTG Duration 07/12/24 Assessment Summary Assessment Pt is an 78 yo male who attends therapy with his who is his caregiver. The pt reportedly has LBP for a long time that has worsened in the past 3 months. Complicating his treatment is that the pt has had Alzheimers since 2016, and he exhibited at times inappropriate behavior of wanting to kiss, thinking PT was his spouse. The pt was active throughout the evaluation, moving around constantly in positioning and in location in the exam room. The pt was not able to follow directions for assessment. He did show discomfort with palpation of the low back on the right and at the R SIJ location. There was no consistency in pt's response with assessment of LE sensation. The pt is not a good candidate for physical therapy due to his inability to tolerate positioning for treatment, and inability to follow directions. Pt's spouse was understanding and was receptive to education in promoting best practice for transfers, body mechanics, and pain management for patient. Physical Therapy Plan Frequency and Duration Frequency of Treatment 1x/Week Duration of treatment (weeks) 1 Plan of Care Start Date 07/12/24 Plan of Care End Date 07/12/24 Therapeutic Interventions Therapeutic Interventions Self-Care/Home Management, Therapeutic Activities Other Referrals/Consults Referrals/Consults Recommended Pt's spouse might need assist in the future to help with pt care at home. Discharge Physical Therapy Discharge Reasons Goals Met Discharge Comments Thank you for your referral.
--- NOTE | 2024-07-12 09:19 | PT.OPPOC ---
Physical, Occupational & Speech Therapy At [facility] Current Diagnoses Spondylolisthesis, lumbosacral region (07/12/24) Spinal stenosis, lumbar region with neurogenic claudication (07/12/24) Visit Care Team Role Provider Type Jason Ramos DO Family Provider Physician Primary Care Provider Specialty: Family Practice Address: [address] [place] [address], [address] Email: [email or web address] Isidro Mcguire DO Attending Provider Physician Referring Provider Specialty: Interventional Radiology Physiatry Pain Management Address: [address] [place], [address] Email: [email or web address] Plan Of Care PT-OP-B Current Condition Start: 07/11/24 19:00 Freq: Status: Active Protocol: Document 07/12/24 07:33 LRN (Rec: 07/12/24 09:16 LRN [id number]) Current Condition History of Current Condition Onset Date Worsening of pain in past 3 months. Current Complaints Lower back pain. History of Current Condition Pt states pt has Alzheimers and that MD thought PT might be helpful. states his L5 is fractured and is sliding off the other vertebrae. Pt walking around the room during initial H&P during information gathering. states pt's pain has been worsening for the past 3 months, stating sometimes his pain has been so bad that he walks crooked. Pt showed much affection to his . Prior Treatments and Tests Chiropractors. Pain medications. Future Testing and Treatments Planned Possible cortisone injection ionto the low back. Developmental History Developmental History X-ray report indicates: Disc Bulge L3-L4, L4-L5, Bilateral L5 pars defects with anterolisthesis of L5 on S1 measuring 14 mm. Severe bilateral foraminal narrowing with bilateral foraminal L5 nerve root impingement. Treatment Goals Patient/Caregiver Goals Pt's states the goal is to help the back pain. Personal Factors Other Personal Factors That May Effect PMH: Pacemaker, Alzheimer's 1 Therapy/Recovery /2017. On blood thinners, L shoulder RC tear repaired, Double vision surgery, carpal tunnel surgery ari wrists, hernia surgery. Pt demonstrating inappropriate behavior of trying to kiss PT . states he thinks everyone is his that he wants to kiss. PT-OP-T Assessment and Plan Start: 07/11/24 19:00 Freq: Status: Active Protocol: Document 07/12/24 07:33 LRN (Rec: 07/12/24 09:16 LRN [id number]) Physical Therapy Assessment Rehab Potential Rehabilitation Potential Poor Evaluation Complexity Number of Personal Factors/Comorbidities 1-2 Number of Body Systems Impaired 3 Clinical Presentation at Evaluation Evolving Impairments Impairments Pain,Posture,Transfers Goals Two Impairment LBP rated 7/10 by spouse Management Intern Goal (LTG) Spouse, caregiver education in use of modalities for pain management and best practice body mechanics for pt to minimize LBP. LTG Duration 07/12/24 One Impairment Transfers impulsively Fdc Goal (LTG) Pt spouse will be educated in log roll transfer in/out of bed and night time positioning to minimize LBP. LTG Duration 07/12/24 Assessment Summary Assessment Pt is an 78 yo male who attends therapy with his who is his caregiver. The pt reportedly has LBP for a long time that has worsened in the past 3 months. Complicating his treatment is that the pt has had Alzheimers since 2016, and he exhibited at times inappropriate behavior of wanting to kiss, thinking PT was his spouse. The pt was active throughout the evaluation, moving around constantly in positioning and in location in the exam room. The pt was not able to follow directions for assessment. He did show discomfort with palpation of the low back on the right and at the R SIJ location. There was no consistency in pt's response with assessment of LE sensation. The pt is not a good candidate for physical therapy due to his inability to tolerate positioning for treatment, and inability to follow directions. Pt's spouse was understanding and was receptive to education in promoting best practice for transfers, body mechanics, and pain management for patient. Physical Therapy Plan Frequency and Duration Frequency of Treatment 1x/Week Duration of treatment (weeks) 1 Plan of Care Start Date 07/12/24 Plan of Care End Date 07/12/24 Therapeutic Interventions Therapeutic Interventions Self-Care/Home Management, Therapeutic Activities Other Referrals/Consults Referrals/Consults Recommended Pt's spouse might need assist in the future to help with pt care at home. Discharge Physical Therapy Discharge Reasons Goals Met Discharge Comments Thank you for your referral. Plan of Care Dates Plan of Care Start Date 07/12/24 Plan of Care End Date 07/12/24 Electronically Signed by: Melina Merritt, PT 07/12/24 0919 If you are in agreement with this Plan of Care, please return a signed and dated copy. I have reviewed this Plan of Care and certify that the skilled therapy services above are required to meet the patient?s needs. Physician Signature Date Printed Name and Credentials Clinical Instructor Signature Printed Name and Credentials
== END 2024-07-30 13:48 | disposition home or self-care (01) ==
LOC: PHYS 07:20
PROVIDERS: Family Provider Family Medicine; PCP Family Medicine; Referring Provider Physical Medicine & Rehabilitation; Visit Provider Physical Medicine & Rehabilitation
DX: M43.17 Spondylolisthesis, lumbosacral region (principal); M48.062 Spinal stenosis, lumbar region with neurogenic claudication
CPT/HCPCS: 97162; 97535

== ENCOUNTER 2024-08-02 13:53 | Emergency (ER) | payer MEDICARE, OTHER, SELFPAY ==
[2021-12-26 14:59] VITALS: BMI 27.5
[2024-08-02] VITALS (7 sets, daily range): BP systolic 123–138; BP diastolic 67–90; PULSE 80–92; RESP 18; TEMP 36.9; O2SAT 94–100; BMI 24.5
--- NOTE | 2024-08-02 14:39 | ED_ITS ---
HPI - General Adult <Tree Luther DO - Last Filed: 08/03/24 18:10> General Chief complaint: Altered Mental Status Stated complaint: Diffuse pain, increase agitation, Alzheimers Time Seen by Provider: 08/02/24 14:28 Source: family and EMS Mode of arrival: EMS History of Present Illness HPI narrative: Patient is an 78-year-old male. History of Alzheimer's. Has been diagnosed with Alzheimer's for the past 7 years but probably has been dealing with it for 8 years. Has been living at home with his . At the end of last week she stated that his agitation in his behavior got to the point where she was unable to take care of him at home. She was able to find a memory care facility. He was there for less than a day when she got a call from the facility telling her that she needed to come pick him up because he was very agitated, combative, hypersexual behavior. She stated that she contacted his primary doctor who prescribed some Ativan. She took the Ativan to the facility. He was able to stay overnight. She received a call from them stating that he would fallen and injured his head. He was on blood thinners. He went to an outside facility. Had a workup and discharged back. She was told that the facility can not take care of him given his current state. Related Data Home Medications Medication Instructions Recorded Confirmed melatonin 3 mg capsule 3 mg PO BEDTIME PRN Sleep 10/27/19 08/03/24 memantine 10 mg tablet (Namenda) 10 mg PO BID 10/27/19 08/03/24 rivaroxaban 20 mg tablet (Xarelto) 20 mg PO DAILY 08/27/21 08/03/24 mecobalamin (vitamin B12) 1,000 1,000 mcg PO DAILY 03/31/23 08/03/24 mcg chewable tablet metoprolol succinate 25 mg 12.5 mg PO DAILY 05/06/24 08/03/24 tablet,extended release 24 hr trazodone 50 mg tablet 50 mg PO ONCE PM 05/06/24 08/03/24 quetiapine 25 mg tablet 50 mg PO BID agitation / dementia 08/03/24 08/03/24 Previous Rx's Medication Instructions Recorded valacyclovir 500 mg tablet 500 mg PO DAILY #90 tabs 09/16/23 tamsulosin 0.4 mg capsule 0.4 mg PO BEDTIME #90 caps 10/10/23 tramadol 50 mg tablet 50 mg PO BID PRN pain #20 tabs 03/29/24 gabapentin 100 mg capsule 100 mg PO TID PRN pain (scale 06/07/24 score 7-10) #90 caps lorazepam 0.5 mg tablet 0.5 mg PO BID PRN agitation #30 07/30/24 tabs mirtazapine 15 mg tablet 15 mg PO BEDTIME #30 tabs 07/30/24 Allergies Allergy/AdvReac Type Severity Reaction Status Date / Time quinine Allergy Intermediate HIVES Verified 08/02/24 14:06 hydrocodone Allergy Mild REACTED Verified 08/02/24 14:06 PRETTY BAD TO IT. donepezil Allergy Unknown unknown Verified 08/02/24 14:06 galantamine Allergy Unknown unknown Verified 08/02/24 14:06 rivastigmine Allergy Unknown Redness of Verified 08/02/24 14:06 Skin oxycodone Allergy Verified 08/02/24 14:06 Review of Systems <Tree Luther DO - Last Filed: 08/03/24 18:10> Review of Systems Narrative: Patient unable to provide any HPI. Discussions came from . Patient History <Tree Luther DO - Last Filed: 08/03/24 18:10> Medical History T11 vertebral fracture Spondylolisthesis at L5-S1 level Facet arthropathy, lumbar Spinal stenosis, lumbar region with neurogenic claudication Dementia History of compression fracture of spine Microscopic hematuria Alzheimer's dementia Insomnia BPH (benign prostatic hyperplasia) Paroxysmal atrial fibrillation Medication refill Actinic keratoses Sick sinus syndrome Vision disorder Fractures Chronic back pain Measles Chicken pox Hearing loss Surgical History Anesthesia History of hemorrhoidectomy Status post LASIK surgery of both eyes History of eye surgery (~04/26/14) History of rotator cuff surgery History of thumb surgery Pacemaker (~03/04/18) Status post hernia repair (~08/01/08) History of carpal tunnel repair Family History Father History of heart disease Mother Diabetes mellitus Brother History of heart disease Social History marital status: household members: spouse Smoking Status: Never smoker alcohol intake: never Smoking Status: Never smoker alcohol intake frequency: 0-2 drinks per day Substance Use Type: does not use Exam <Tree Luther DO - Last Filed: 08/03/24 18:10> Initial Vital Signs Initial Vital Signs: Vital Signs Pulse Rate 80 08/02/24 13:54 Pulse Oximetry 94 08/02/24 13:54 HENMT HENMT Other: Stitches left forehead appeared to be intact without signs of infection Resp Effort & Inspection: normal respiratory effort Cardio Rate: regular rate Skin Other: Incision over forehead intact. Neuro Other: Patient is yelling out. Is not following commands. Extrem Other: No gross deformities <Ying Noe MD - Last Filed: 08/04/24 01:04> Initial Vital Signs Initial Vital Signs: Vital Signs Pulse Rate 80 08/02/24 13:54 Pulse Oximetry 94 08/02/24 13:54 Course <Tree Luther DO - Last Filed: 08/03/24 18:10> Orders Ordered: Discontinued Medications Acetaminophen (Acetaminophen 325 Mg Tablet) 650 mg PO Q6H PRN PRN Reason: Pain, Mild (1-3) Diphenhydramine HCl (Diphenhydramine 50 Mg/Ml Vial) 50 mg IM NOW ONE Stop: 08/02/24 19:29 Last Admin: 08/02/24 20:06 Dose: 50 mg Documented By: Haloperidol (Haloperidol 5 Mg/Ml Vial) 5 mg IM NOW ONE Stop: 08/02/24 17:57 Last Admin: 08/02/24 18:00 Dose: 5 mg Documented By: CHONG Haloperidol (Haloperidol 5 Mg/Ml Vial) 5 mg IM NOW ONE Stop: 08/02/24 19:29 Last Admin: 08/02/24 20:06 Dose: 5 mg Documented By: Haloperidol (Haloperidol 5 Mg/Ml Vial) 5 mg IM NOW ONE Stop: 08/03/24 07:39 Last Admin: 08/03/24 10:32 Dose: 5 mg Documented By: EMMNAUEL Lorazepam (Lorazepam 0.5 Mg Tablet) 1 mg PO NOW ONE Stop: 08/02/24 15:01 Last Admin: 08/02/24 15:09 Dose: 1 mg Documented By: MPO Lorazepam (Lorazepam 0.5 Mg Tablet) 1 mg PO NOW ONE Stop: 08/03/24 07:28 Last Admin: 08/03/24 07:33 Dose: 1 mg Documented By: RLS Lorazepam (Lorazepam 0.5 Mg Tablet) 0.5 mg PO Q12HR PRN PRN Reason: Agitation Last Admin: 08/03/24 19:51 Dose: 0.5 mg Documented By: SPF Memantine (Memantine Hcl 5 Mg Tablet) 10 mg PO BID DANYEL Metoprolol Succinate (Metoprolol Er 25 Mg Tablet) 12.5 mg PO BEDTIME DANYEL Mirtazapine (Mirtazapine 15 Mg Tablet) 15 mg PO BEDTIME DANYEL Quetiapine Fumarate (Quetiapine 25 Mg Tablet) 25 mg PO NOW ONE Stop: 08/02/24 14:41 Last Admin: 08/02/24 14:46 Dose: 25 mg Documented By: CHONG Quetiapine Fumarate (Quetiapine 25 Mg Tablet) 25 mg PO BID DANYEL Last Admin: 08/03/24 19:52 Dose: 25 mg Documented By: Admin: 08/03/24 14:58 Dose: 25 mg Documented By: GENE Tamsulosin HCl (Tamsulosin 0.4 Mg Capsule) 0.4 mg PO BEDTIME [facility] Vital Signs Vital signs: Vital Signs - 8 hr 08/03/24 20:00 08/03/24 20:10 Pulse Rate 98 H 98 H Respiratory Rate 22 22 Pulse Oximetry 97 97 Oxygen Delivery Method Room Air Room Air <Ying Noe MD - Last Filed: 08/04/24 01:04> Orders Ordered: Discontinued Medications Acetaminophen (Acetaminophen 325 Mg Tablet) 650 mg PO Q6H PRN PRN Reason: Pain, Mild (1-3) Diphenhydramine HCl (Diphenhydramine 50 Mg/Ml Vial) 50 mg IM NOW ONE Stop: 08/02/24 19:29 Last Admin: 08/02/24 20:06 Dose: 50 mg Documented By: Haloperidol (Haloperidol 5 Mg/Ml Vial) 5 mg IM NOW ONE Stop: 08/02/24 17:57 Last Admin: 08/02/24 18:00 Dose: 5 mg Documented By: CHONG Haloperidol (Haloperidol 5 Mg/Ml Vial) 5 mg IM NOW ONE Stop: 08/02/24 19:29 Last Admin: 08/02/24 20:06 Dose: 5 mg Documented By: JR Haloperidol (Haloperidol 5 Mg/Ml Vial) 5 mg IM NOW ONE Stop: 08/03/24 07:39 Last Admin: 08/03/24 10:32 Dose: 5 mg Documented By: RLS Lorazepam (Lorazepam 0.5 Mg Tablet) 1 mg PO NOW ONE Stop: 08/02/24 15:01 Last Admin: 08/02/24 15:09 Dose: 1 mg Documented By: MPO Lorazepam (Lorazepam 0.5 Mg Tablet) 1 mg PO NOW ONE Stop: 08/03/24 07:28 Last Admin: 08/03/24 07:33 Dose: 1 mg Documented By: RLS Lorazepam (Lorazepam 0.5 Mg Tablet) 0.5 mg PO Q12HR PRN PRN Reason: Agitation Last Admin: 08/03/24 19:51 Dose: 0.5 mg Documented By: SPF Memantine (Memantine Hcl 5 Mg Tablet) 10 mg PO BID DANYEL Metoprolol Succinate (Metoprolol Er 25 Mg Tablet) 12.5 mg PO BEDTIME DANYEL Mirtazapine (Mirtazapine 15 Mg Tablet) 15 mg PO BEDTIME DANYEL Quetiapine Fumarate (Quetiapine 25 Mg Tablet) 25 mg PO NOW ONE Stop: 08/02/24 14:41 Last Admin: 08/02/24 14:46 Dose: 25 mg Documented By: CHONG Quetiapine Fumarate (Quetiapine 25 Mg Tablet) 25 mg PO BID [facility] Last Admin: 08/03/24 19:52 Dose: 25 mg Documented By: Admin: 08/03/24 14:58 Dose: 25 mg Documented By: GENE Tamsulosin HCl (Tamsulosin 0.4 Mg Capsule) 0.4 mg PO BEDTIME [facility] Vital Signs Vital signs: Vital Signs - 8 hr 08/03/24 20:00 08/03/24 20:10 Pulse Rate 98 H 98 H Respiratory Rate 22 22 Pulse Oximetry 97 97 Oxygen Delivery Method Room Air Room Air Medical Decision Making <Tree Luther DO - Last Filed: 08/03/24 18:10> Lab Data Lab results reviewed: Yes I reviewed the patient's lab results. 08/02/24 17:25 08/02/24 17:25 Labs: Lab Results 08/02/24 08/02/24 08/02/24 Range/Units 17:00 17:18 17:25 WBC 7.7 (4.5-11.0) X10^3/uL RBC 4.61 (4.5-5.9) X10^6/uL Hgb 14.3 (13.5-17.5) g/dL Hct 42.4 (41-53) % MCV 92.0 (80-100) fL MCH 31.0 (26-34) PG MCHC 33.6 (30-36) % RDW 13.8 (11.6-14.8) % Plt Count 180 (150-400) X10^3/uL Neut % (Auto) 67.7 (50-75) % Lymph % (Auto) 19.9 L (25-40) % [place] % (Auto) 9.2 (3-14) % Eos % (Auto) 2.5 (2-4) % Baso % (Auto) 0.7 (0-2) % Neut # (Auto) 5200 (4145-7701) /uL Lymph # (Auto) 1500 (5473-6893) /uL [place] # (Auto) 700 (0-900) /uL Eos # (Auto) 200 (0-450) /uL Baso # (Auto) 100 (0-100) /uL Sodium 141 (137-145) mmol/L Potassium 4.0 (3.4-5.1) mmol/L Chloride 108 H (98-107) mmol/L Carbon Dioxide 26 (22-32) mmol/L BUN 19 (9-20) mg/dL Creatinine 1.10 (0.66-1.25) mg/dL Estimated GFR > 60 (>60) mL/min BUN/Creatinine Ratio 17.3 (6-22) Glucose 102 (80-110) mg/dL Calcium 9.2 (8.4-10.2) mg/dL Total Bilirubin 1.1 (0.2-1.3) mg/dL AST 31 (17-59) IU/L ALT 18 (<50) IU/L Alkaline Phosphatase 47 (38-126) U/L Total Protein 6.9 (6.3-8.2) g/dL Albumin 4.0 (3.5-5.0) g/dL Globulin 2.9 (1.7-4.1) g/dL Albumin/Globulin Ratio 1.4 (1.0-2.8) TSH 5.10 H (0.47-4.68) uIU/mL Free T4 1.03 (0.78-2.19) ng/dL Salicylates < 1.0 (<20) mg/dL U Opiates 300ng/mL cut Negative (Negative) Ur Oxycodone Screen Negative (Negative) Urine Methadone Screen Negative (Negative) Acetaminophen < 10 (10-30) ug/mL Ur Barbiturates Screen Negative (Negative) U Tricyclic Antidepress Negative (Negative) Ur Phencyclidine Scrn Negative (Negative) Ur Amphetamines Screen Negative (Negative) U Methamphetamines Scrn Negative (Negative) Ur MDMA Scrn (Ecstasy) Negative (Negative) U Benzodiazepines Scrn Positive H (Negative) Urine Cocaine Screen Negative (Negative) U Marijuana (THC) Screen Negative (Negative) Urine pH Normal (Normal) Urine Specific [place] Normal (Normal) Ethyl Alcohol < 10 ( - 10) mg/dL Ur Creatinine Normal (Normal) SARS-CoV-2 (PCR) Negative (Negative) Urine Dip Bedside Urine Glucose Negative Bedside Urine Bilirubin - Negative Bedside Urine Ketone - Negative Urine Specific [place] 1.025 Bedside Urine Occult Blood - Negative Bedside Urine pH 5.5 Bedside Urine Protein - Negative Bedside Urine Urobilinogen - Negative Bedside Urine Nitrite - Negative Bedside Urine Leukocytes - Negative Esterase Point of care testing: Urine Dip Bedside Urine Glucose Negative Bedside Urine Bilirubin - Negative Bedside Urine Ketone - Negative Urine Specific [place] 1.025 Bedside Urine Occult Blood - Negative Bedside Urine pH 5.5 Bedside Urine Protein - Negative Bedside Urine Urobilinogen - Negative Bedside Urine Nitrite - Negative Bedside Urine Leukocytes - Negative Esterase MDM Narrative Medical decision making narrative: It appears that the patient's symptoms that he presents with today are not necessarily new. His has been dealing with his Alzheimer's and behavioral issues for some time it is just it is getting to the point where she can not take care of it at home. Here in the emergency department he can not provide any information. He did seem to respond somewhat well to Seroquel and did sleep for a period of time. Patient has been seen by social work. [facility] in [place] is reviewing. Patient is medically cleared but most likely will require a [facility]memory care facility. Care turned over to Dr. Noe to continue to follow until disposition. Dr luther: 08/03/24 patient has been stable throughout the day. Has been resting most of the day but occasionally yells out. Did get a dose of Ativan this morning. This does seem to help him quite a bit. Patient remains medically cleared. Has been seen by social work. Has been accepted at [facility]. Patient was stable for transport. Will arrange transport. <Ying Noe MD - Last Filed: 08/04/24 01:04> Lab Data Labs: Lab Results 08/02/24 08/02/24 08/02/24 Range/Units 17:00 17:18 17:25 WBC 7.7 (4.5-11.0) X10^3/uL RBC 4.61 (4.5-5.9) X10^6/uL Hgb 14.3 (13.5-17.5) g/dL Hct 42.4 (41-53) % MCV 92.0 (80-100) fL MCH 31.0 (26-34) PG MCHC 33.6 (30-36) % RDW 13.8 (11.6-14.8) % Plt Count 180 (150-400) X10^3/uL Neut % (Auto) 67.7 (50-75) % Lymph % (Auto) 19.9 L (25-40) % [place] % (Auto) 9.2 (3-14) % Eos % (Auto) 2.5 (2-4) % Baso % (Auto) 0.7 (0-2) % Neut # (Auto) 5200 (7702-6046) /uL Lymph # (Auto) 1500 (2140-3644) /uL [place] # (Auto) 700 (0-900) /uL Eos # (Auto) 200 (0-450) /uL Baso # (Auto) 100 (0-100) /uL Sodium 141 (137-145) mmol/L Potassium 4.0 (3.4-5.1) mmol/L Chloride 108 H (98-107) mmol/L Carbon Dioxide 26 (22-32) mmol/L BUN 19 (9-20) mg/dL Creatinine 1.10 (0.66-1.25) mg/dL Estimated GFR > 60 (>60) mL/min BUN/Creatinine Ratio 17.3 (6-22) Glucose 102 (80-110) mg/dL Calcium 9.2 (8.4-10.2) mg/dL Total Bilirubin 1.1 (0.2-1.3) mg/dL AST 31 (17-59) IU/L ALT 18 (<50) IU/L Alkaline Phosphatase 47 (38-126) U/L Total Protein 6.9 (6.3-8.2) g/dL Albumin 4.0 (3.5-5.0) g/dL Globulin 2.9 (1.7-4.1) g/dL Albumin/Globulin Ratio 1.4 (1.0-2.8) TSH 5.10 H (0.47-4.68) uIU/mL Free T4 1.03 (0.78-2.19) ng/dL Salicylates < 1.0 (<20) mg/dL U Opiates 300ng/mL cut Negative (Negative) Ur Oxycodone Screen Negative (Negative) Urine Methadone Screen Negative (Negative) Acetaminophen < 10 (10-30) ug/mL Ur Barbiturates Screen Negative (Negative) U Tricyclic Antidepress Negative (Negative) Ur Phencyclidine Scrn Negative (Negative) Ur Amphetamines Screen Negative (Negative) U Methamphetamines Scrn Negative (Negative) Ur MDMA Scrn (Ecstasy) Negative (Negative) U Benzodiazepines Scrn Positive H (Negative) Urine Cocaine Screen Negative (Negative) U Marijuana (THC) Screen Negative (Negative) Urine pH Normal (Normal) Urine Specific [place] Normal (Normal) Ethyl Alcohol < 10 ( - 10) mg/dL Ur Creatinine Normal (Normal) SARS-CoV-2 (PCR) Negative (Negative) Urine Dip Bedside Urine Glucose Negative Bedside Urine Bilirubin - Negative Bedside Urine Ketone - Negative Urine Specific [place] 1.025 Bedside Urine Occult Blood - Negative Bedside Urine pH 5.5 Bedside Urine Protein - Negative Bedside Urine Urobilinogen - Negative Bedside Urine Nitrite - Negative Bedside Urine Leukocytes - Negative Esterase Point of care testing: Urine Dip Bedside Urine Glucose Negative Bedside Urine Bilirubin - Negative Bedside Urine Ketone - Negative Urine Specific [place] 1.025 Bedside Urine Occult Blood - Negative Bedside Urine pH 5.5 Bedside Urine Protein - Negative Bedside Urine Urobilinogen - Negative Bedside Urine Nitrite - Negative Bedside Urine Leukocytes - Negative Esterase [facility] Narrative Medical decision making narrative: It appears that the patient's symptoms that he presents with today are not necessarily new. His has been dealing with his Alzheimer's and behavioral issues for some time it is just it is getting to the point where she can not take care of it at home. Here in the emergency department he can not provide any information. He did seem to respond somewhat well to Seroquel and did sleep for a period of time. Patient has been seen by social work. [facility] in [place] is reviewing. Patient is medically cleared but most likely will require a [facility]/memory care facility. Care turned over to Dr. Noe to continue to follow until disposition. Dr. Noe -patient monitored overnight, he did have some episodes of agitation that responded well to IM Haldol. Pending placement, Patient care re-turned to Dr. Luther at shift change 0700 Dr luther: 08/03/24 patient has been stable throughout the day. Has been resting most of the day but occasionally yells out. Did get a dose of Ativan this morning. This does seem to help him quite a bit. Patient remains medically cleared. Has been seen by social work. Has been accepted at [facility]. Patient was stable for transport. Will arrange transport. Discharge Plan Departure Patient Disposition: Xfer Psychiatric Hosp Clinical Impression: Dementia Prescriptions: No Action Xarelto 20 mg tablet 20 mg PO DAILY Rx Instructions: must administer with evening meal valacyclovir 500 mg tablet 500 mg PO DAILY Qty: 90 0RF mirtazapine 15 mg tablet 15 mg PO BEDTIME Qty: 30 2RF lorazepam 0.5 mg tablet 0.5 mg PO BID PRN (Reason: agitation) Qty: 30 0RF Rx Instructions: this had to be called in to the pharmacist at [facility], as [facility] in [place] is unable to obtain prescription today memantine [Namenda] 10 mg tablet 10 mg PO BID melatonin 3 mg capsule 3 mg PO BEDTIME PRN (Reason: Sleep) tamsulosin 0.4 mg capsule 0.4 mg PO BEDTIME Qty: 90 3RF mecobalamin (vitamin B12) 1,000 mcg tablet,chewable 1,000 mcg PO DAILY tramadol 50 mg tablet 50 mg PO BID PRN (Reason: pain) Qty: 20 0RF quetiapine 25 mg tablet 50 mg PO BID metoprolol succinate 25 mg tablet extended release 24 hr 12.5 mg PO DAILY trazodone 50 mg tablet 50 mg PO ONCE PM gabapentin 100 mg capsule 100 mg PO TID PRN (Reason: pain (scale score 7-10)) Qty: 90 2RF Referrals: Jason Ramos, [Primary Care Provider] -
[2024-08-02] MEDS: QUETIAPINE 25 MG TABLET PO (14:46)
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
[2024-08-02] MEDS: LORazepam 0.5 MG TABLET 1 MG PO (15:09)
[2024-08-02 17:19] LABS: Ur Creatinine Normal (Normal); Ur Specific Gravity Normal (Normal)
[2024-08-02 17:20] LABS: UR Morphine/Opiate cutoff 300 Negative (Negative); Urine Amphetamines Negative (Negative); Urine Barbiturates Negative (Negative); Urine Benzodiazepines Positive (Negative); Urine Cocaine Negative (Negative); Urine MDMA Negative (Negative); Urine Methadone Negative (Negative); Urine Methamphetamines Negative (Negative); Urine Oxycodone Negative (Negative); Urine Phencyclidine Negative (Negative); Urine Tetrahydrocannabinol Negative (Negative); Urine Tricyclic Antidepressant Negative (Negative); Urine pH Normal (Normal)
--- NOTE | 2024-08-02 17:27 | CM.SWNOTE ---
ED DESIGN LEAD Assessment Note: DESIGN LEAD - Architecture Intern Assessment DESIGN LEAD/Architecture Intern Assessment Time Spent with Patient Start date 08/02/24 Visit Start Time 16:30 End date 08/02/24 Visit End Time 17:00 Total time Care Management spent on 30 minutes patient visit-in minutes Mental Health Screening Include Onset, Duration, Intensity Presenting Problem Patient presents for worsening dementia, altered mental status. Patient's family is hopeful for a geripsych referral to assist with medication management for behaviors. Precipitating Event(s) Patient was recently accepted by a memory care facility in [place] on Friday, 07/31, and later discharged from facility due to behaviors. Patient went back home to family and it was established that his is not able to safely care for him at home due to behaviors. Patient Strengths Patient has supportive family members and is working with PCP with obtaining appropriate medication management. Current Behavioral Health Provider(s) None identified. Include Facility, Provider, Ph. # Psych. Hx Mental Health and Chemical Hx of Alzheimer's dementia. Dependency Family Hx of Behavioral Abuse None reported. Psychiatric Hospitalizations (date(s)/ None reported. location) Psychosocial information & Support Patient is a 78yo male, Systems resident of [place], supported by his , Jud and daughter, Brit. Patient's granddaughter, Sheree, also available for support. School/Work Patient is retired. Legal Concerns Legal Matters - Outstanding Issues None reported. Mental Status Orientation (Person/Place/Time) AOx1 Thought Content - Specify/Describe None reported Obsessions, Delusions, Hallucinations Thought Processes (Ieilhyg-Kladmxqw-Xkjv Disorganized Vjwagvig-Qlqhkyvi-Nsstrutvtg- Ndoyyvwzdnuuan-Opompxv-Xnwgfkdpgavk- Thought Blocking) Speech (Jcvbop-Esvs-Qpbxwfe-Rapid-Soft- Loud Loud-Pressured) Motor (Ewvxao-Mpifadwjb-Psfx-Other) Slow Insight (Xapr-Ryar-Toyx/Limited) Poor/limited Judgement (Grtd-Maln-Dnor/Limited) Poor/limited Impulse Control (Adequate-Impaired) Impaired Memory (Otezxbvud-Iyqdtm-Hfdbxh, Impaired Impaired-Intact) Concentration (Intact-Impaired) Intact Attention (Intact-Impaired) Intact Behavior (Appropriate-Inappropriate) Inappropriate Additional Comment Due to patient's Alzheimer's dementia dx, patient is not able to orient to place and time which is affecting responses to stimuli. Risk Assessment Suicidal Ideation (Plan) No Homicidal Ideation (Plan) No Intervention Intervention DESIGN LEAD attempts to meet with patient, patient is asleep. Patient meets with patient's family: , Jud, daughter , Brit, and patient's granddaughter, Sheree in a separate room to discuss patient's presentation and care plans. Per family, patient has recently been increasing in agitation and have not had much success with a medication change/trial to assist with behaviors. Patient's family reports patient was not formally assessed before being accepted at [facility] which is why he was discharged so quickly. Patient 's family explains they are not able to take patient home at this time due to behaviors but are hopeful patient can get a more appropriate medication management plan to assist with agitation. Patient's family explain they are hoping for patient to receive inpatient behavioral health hospitalization at this time. Patient's is POA. At this time, it is the opinion of this DESIGN LEAD that patient would benefit from inpatient psychiatric hospitalization for SI. DESIGN LEAD informs ED provider, Dr. Luther who indicates agreement . DESIGN LEAD informs RICKY Carvajal. Plan RA Plan Once patient is medically clear, ED staff will attempt to find inpatient placement for patient. KEITH Rush
[2024-08-02 17:35] LABS: Add Manual Diff / Slide Review NO; Basophils Absolute Auto 100 /uL (0-100); Basophils Percent Auto 0.7 % (0-2); Eosinophils Absolute Auto 200 /uL (0-450); Eosinophils Percent Auto 2.5 % (2-4); Hematocrit 42.4 % (41-53); Hemoglobin 14.3 g/dL (13.5-17.5); Lymphocytes Absolute Auto 1500 /uL (1100-4500); Lymphocytes Percent Auto 19.9 % (25-40); Mean Corpuscular HGB Conc 33.6 % (30-36); Monocytes Absolute Auto 700 /uL (0-900); Monocytes Percent Auto 9.2 % (3-14); Neutrophils Absolute Auto 5200 /uL (1500-7000); Neutrophils Percent Auto 67.7 % (50-75); Platelet Count 180 X10^3/uL (150-400); Red Blood Cell Count 4.61 X10^6/uL (4.5-5.9); Red Cell Distribution Width 13.8 % (11.6-14.8); White Blood Cell Count 7.7 X10^3/uL (4.5-11.0)
[2024-08-02 17:48] LABS: COVID19 -Nasal RAPID Negative (Negative)
[2024-08-02 17:49] LABS: Acetaminophen < 10 ug/mL (10-30); Alanine Aminotransferase 18 IU/L (<50); Albumin Globulin Ratio 1.4 (1.0-2.8); Alkaline Phosphatase 47 U/L (38-126); Aspartate Aminotransferase 31 IU/L (17-59); BUN Creatinine Ratio 17.3 (6-22); Bilirubin Total 1.1 mg/dL (0.2-1.3); Blood Urea Nitrogen 19 mg/dL (9-20); Calcium 9.2 mg/dL (8.4-10.2); Carbon Dioxide 26 mmol/L (22-32); Chloride 108 mmol/L (98-107); Estimated Glomerular Filt Rate > 60 mL/min (>60); Ethanol (ETOH) < 10 mg/dL; Globulin 2.9 g/dL (1.7-4.1); Glucose 102 mg/dL (80-110); HEMOLYSIS < 15 (0-50); Salicylate < 1.0 mg/dL (<20); Sodium 141 mmol/L (137-145); Total Protein 6.9 g/dL (6.3-8.2)
[2024-08-02] MEDS: HALOPERIDOL 5 MG/ML VIAL IM ×2 (18:00→20:06)
[2024-08-02 18:10] LABS: Free T4, Direct Thyroxine 1.03 ng/dL (0.78-2.19)
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
--- NOTE | 2024-08-02 18:14 | CM.SWNOTE ---
ED DRY ROOM OPERATOR Note: Patient has been deemed medically clear by ED Provider. ED DRY ROOM OPERATOR received copy of a Durable POA document, ED registration kindly scanned into patient's chart. ED DRY ROOM OPERATOR spoke with Cindy at [facility] (ph#[phone], fax#[phone]) it was reported that patient is being reviewed and will need more information (lab work, utox, DPOA document, updated ED Provider note with medical clearance, COVID) to continue with review. ED DRY ROOM OPERATOR sent the requested documents to [facility] via [employer]. Plan: Patient pending acceptance for geripsych treatment. ED Staff following for coordination of discharge plans. KEITH Rush
--- NOTE | 2024-08-02 19:24 | PC.NURSE ---
Assumed cares from RICKY Chance. Pt laying back in gurney, moaning and calling out for Jud intermittently. at bedside. Discussed plan with family, understands.
[2024-08-02] MEDS: diphenhydrAMINE 50 MG/ML VIAL IM (20:06)
--- NOTE | 2024-08-02 20:14 | PC.NURSE ---
Pt calling out and trying to climb out of bed. left to go home and get some sleep. Pt yelling at staff and moaning. Medicated with PRN for agitation.
--- NOTE | 2024-08-03 04:23 | PC.NURSE ---
Pt pulled brief off. Brief wet. Replaced brief and turned pt. Warm blanket provided.
[2024-08-03 04:29] VITALS: BP 142/87; PULSE 85; RESP 22; O2SAT 99
[2024-08-03] MEDS: LORazepam 0.5 MG TABLET 1 MG PO (07:33)
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
[2024-08-03 09:55] VITALS: PULSE 71
[2024-08-03 09:57] VITALS: PULSE 54; RESP 16; O2SAT 94
[2024-08-03] MEDS: HALOPERIDOL 5 MG/ML VIAL IM (10:32)
--- NOTE | 2024-08-03 10:45 | PC.NURSE ---
Addendum entered by Sara Quintana CNA 08/03/24 13:44: [employer] note: Daughter and at bedside. Patient is moving himself in bed. Addendum entered by Sara Quintana CNA 08/03/24 12:53: [employer] note: Attempted to feed patient sandwich. I told patient to bite the sandwich. Patient kissed the sandwich Addendum entered by Sara Quintana CNA 08/03/24 12:19: [employer] note: Patient's daughter, Brit, at bedside. Addendum entered by Sara Quintana CNA 08/03/24 11:13: [employer] note: [employer] standing occasionally at bedside as patient grumbles. I put patient's belongings in a bag as to keep things secure. Patient's hearing aides are currently in a specimen cup marked with a patient label in his patient's belongings bag along with his glasses. Original Note: FRANK note: Patient in bed. Patient attempting to kick his legs out of bed. Patient moving slow to attempt to get out of bed. Gave patient 65% of his breakfast sandwich. I tried to get him to bite after Su GARCÍA gave him Haldol, and patient tried to bite me multiple times. Patient occasionally calls out for Marilu.
--- NOTE | 2024-08-03 13:50 | PC.NURSE ---
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 Patient needed help with holding sandwich and being prompted to take a bite. Patient took 3 bites of breakfast sandwich. Patient needed help at every bite. Patient asked for water. Patient couldn't hold the paper cup of water. When I attempted to have patient sip water from cup using a straw while I held the cup. Patient couldn't use straw and couldn't suck on the straw with multiple prompts. I helped patient sip on water, but helping pour into patient's mouth. Attempted later to get patient to eat sandwich and patient attempted to bite me on 2 different occasions. For lunch attempted to get patient to eat his grilled cheese sandwich. Patient was unable to hold sandwich. When I held the sandwich patient needed cueing, and then patient kissed his sandwich. Daughter was able to get patient to eat half of a sandwich. Patient has been unable to feed self or hold food.
--- NOTE | 2024-08-03 13:57 | PC.NURSE ---
Ambulatory Status: Patient has been witnessed walking independently while in ED during this encounter. Patient has walked from room 8 down hallway to bathroom and back with staff supervision, as well as in room intermittently. Patient does not require mobility devices. He currently is laying in bed and frequently repositioning self independently. Patient remains confused and difficult to redirect.
[2024-08-03] MEDS: QUETIAPINE 25 MG TABLET PO ×2 (14:58→19:52)
[2024-08-03 15:26] VITALS: BP 149/65; PULSE 81; RESP 22; TEMP 36.9; O2SAT 98
--- NOTE | 2024-08-03 19:30 | CM.SWNOTE ---
ED CLINICAL EXERCISE PHYSIOLOGIST Note CLINICAL EXERCISE PHYSIOLOGIST calls [facility] - it is reported they don't have beds and are not likely to have beds. Patient's arrives to provide healthcare POA paperwork proving she is DPOA, this paperwork is faxed to [facility]. It is reported that patient cannot return to [facility]. Patient's spouse states that [facility] has stated that they can likely accept patient for memory care after a [facility] stay. CLINICAL EXERCISE PHYSIOLOGIST calls [facility] regarding patient and encourages spouse to do the same. It is reported that the director of food and nutrition is in training and will call back tomorrow. [facility] calls back and states that patient is accepted by Dr. Connor [facility]. Rn to RN ph# [phone]. [facility] faxes consent paperwork for DPOA to sign. Patient's spouse arrives to sign paperwork, CLINICAL EXERCISE PHYSIOLOGIST faxes it back. CLINICAL EXERCISE PHYSIOLOGIST sets up [facility] for 0 curing pickling packer. Plan: patient to transfer to [facility] for [facility] placement, spouse to coordinate memory care for d/c after placement. Valorie Beckman, GEROPSYCHOLOGIST
[2024-08-03] MEDS: LORazepam 0.5 MG TABLET PO (19:51)
[2024-08-03 20:00] VITALS: PULSE 98; RESP 22; O2SAT 97
[2024-08-03 20:10] VITALS: PULSE 98; RESP 22; O2SAT 97
== END 2024-08-03 20:10 ==
PROVIDERS: Emergency Provider Emergency Medicine; Family Provider Family Medicine; PCP Family Medicine
DX: G30.9 Alzheimer's disease, unspecified (principal); F02.811 Dementia in other diseases classified elsewhere, unspecified severity, with agitation; Z79.01 Long term (current) use of anticoagulants; Z79.899 Other long term (current) drug therapy; Z11.52 Encounter for screening for COVID-19
CPT/HCPCS: 80053; 80305; 80320; 80329; 81003; 84439; 84443; 85025; 87635; 96372; 99284; G0480; J1200; J1630